=== PATIENT | female | born 1945 | race Caucasian/White ===

== ENCOUNTER 2016-02-26 07:47 | Day surgery (SDC) | payer OTHER ==
[2016-02-20 13:18] VITALS: BMI 31.0
--- NOTE | 2016-02-20 13:57 | PAT Medication Instructions ---
Service Date Feb 20, 2016. Current Home Medication List Acetaminophen (Tylenol), 325 MG PO PRN Alendronate/Cholecalciferol (Fosamax+D 70MG/2800 Iu), 1 TABLET PO WK Atorvastatin (Lipitor), 10 MG PO Q2D Cholecalciferol (Vitamin D3), 1 CAP PO QPM Glipizide (Glipizide Er), 1 TAB PO QAM Lactulose (Encephalopathy) (Lactulose), 30 ML PO QAM Lisinopril (Zestril), 10 MG PO QAM Magnesium Oxide (Mag-Ox), 400 MG PO HS Metformin Hcl (Glucophage), 500 MG PO NOON/PM Metoprolol Succ (Toprol Xl) (Toprol-Xl), 25 MG PO QPM Omeprazole (Prilosec), 20 MG PO QAM Quetiapine Fumarate (Seroquel), 100 MG PO HS Thiamine Mononitrate (Vitamin B1), 100 MG PO NOON/PM [Folic ], 800 MCG PO QAM Medication Instructions For Your Scheduled Surgery - Continue as usual: Thiamine Mononitrate (Vitamin B1), 100 MG PO NOON/PM Alendronate/Cholecalciferol (Fosamax+D 70MG/2800 Iu), 1 TABLET PO WK - Hold the following medications 48 hours prior to surgery: Metformin Hcl (Glucophage), 500 MG PO NOON/PM - Hold the following medications the morning of surgery: [Folic ], 800 MCG PO QAM Lisinopril (Zestril), 10 MG PO QAM Glipizide (Glipizide Er), 1 TAB PO QAM Atorvastatin (Lipitor), 10 MG PO Q2D - Take the following medications the morning of surgery with a sip of water: Omeprazole (Prilosec), 20 MG PO QAM Lactulose (Encephalopathy) (Lactulose), 30 ML PO QAM Acetaminophen (Tylenol), 325 MG PO PRN (if needed) - Take the following medications as scheduled the night before surgery: Thiamine Mononitrate (Vitamin B1), 100 MG PO NOON/PM Quetiapine Fumarate (Seroquel), 100 MG PO HS Metoprolol Succ (Toprol Xl) (Toprol-Xl), 25 MG PO QPM Magnesium Oxide (Mag-Ox), 400 MG PO HS Acetaminophen (Tylenol), 325 MG PO PRN (if needed) Cholecalciferol (Vitamin D3), 1 CAP PO QPM If you have any questions please call us at [phone] (Maru Arroyo PA-C) or [phone] or [phone]
[2016-02-20 15:10] LABS: BUN/CREATININE RATIO 12.7 (10-20); CALCIUM 9.4 mg/dl (8.5-10.1); POTASSIUM 4.2 mmol/L (3.5-5.1)
[2016-02-20 15:13] LABS: BASO % 0.4 %; BASO ABS # 0.01 K/uL (0-0.2); COMPLETE YES; EOS % 1.3 %; HEMATOCRIT 33.4 % (37-47); LYMPH % 31.3 %; MEAN CELL VOLUME 89.1 fL (80-100); MEAN CORPUSCULAR HEMOGLOBIN 29.3 pg (25-34); MEAN CORPUSCULAR HGB CONC 32.9 g/dl (32-36); MEAN PLATELET VOLUME 11.4 fL (7.4-10.4); MONO % 7.6 %; NEUT % 59.4 %; PLATELET COUNT 73 K/uL (130-400); PLT ESTIMATE DECREASED; RED BLOOD COUNT 3.75 M/uL (4.2-5.4); SCHISTOCYTES 1+; WHITE BLOOD COUNT 2.24 K/uL (4.8-10.8)
[~2016-02-26] VITALS: Ht 152.4 cm; Wt 73.4 kg
[~2016-02-26 07:47] MED LIST: ACET-1311 PO; ATOR10TA82 PO; CEFAZOLIN 2000 MG/60 ML D5W IV SCH; CHOL2000 PO; FOLIC PO; FSMD/70 PO; GLC/500 PO; GLIP-199 PO; LACT10SO30 PO; LACTATED RINGER'S 1000ML 1,000 ML IV SCH; LISI-461 PO; MAGN400T6 PO; METO25TA3 PO; PRLSR20 PO; QUET1TAB34 PO; THIA1TAB11 PO
[2016-02-26 09:05] LABS: HEMATOCRIT 32.8 % (37-47); MEAN CELL VOLUME 88.6 fL (80-100); MEAN CORPUSCULAR HEMOGLOBIN 29.2 pg (25-34); WHITE BLOOD COUNT 1.93 K/uL (4.8-10.8)
[2016-02-26 09:07] LABS: MEAN CORPUSCULAR HGB CONC 32.9 g/dl (32-36); MEAN PLATELET VOLUME 11.2 fL (7.4-10.4); PLATELET COUNT 68 K/uL (130-400)
[2016-02-26 09:08] VITALS: BP 181/78; PULSE 88; TEMP 36.7; O2SAT 98; Ht 152.4 cm; Wt 73.4 kg
[2016-02-26] MEDS ORDERED: LIDOCAINE HCL 2% 2 ML VIAL (20MG/ML) ONE (10:00)
[2016-02-26] MEDS ORDERED: ONDANSETRON INJ 2 MG/ML 2 ML VIAL ONE (10:00)
[2016-02-26] MEDS ORDERED: DEXAMETHASONE SOD INJ 4 MG/ML VIAL ONE (10:00)
[2016-02-26] MEDS ORDERED: MIDAZOLAM HCL 1 MG/ML 2ML VIAL ONE (10:00)
[2016-02-26] MEDS ORDERED: PROPOFOL IV EMULSION 10 MG/ML 20 ML VIAL IV ONE (10:00)
[2016-02-26] MEDS ORDERED: FENTANYL CITRATE INJ 50 MCG/1 ML 2 ML VIAL ONE (10:00)
[2016-02-26] MEDS ORDERED: KETAMINE HCL INJ 50 MG/ML 10 ML VIAL ONE (10:08)
--- NOTE | 2016-02-26 10:12 | DIAGNOSTIC IMAGING REPORT ---
RIGHT BREAST LYMPHOSCINTIGRAPHY INJECTION CLINICAL HISTORY: BREAST CA COMPARISON STUDY: Mammography dated 01/22/2016 FINDINGS: A timeout was performed. 5 Periareolar intradermal injections were performed utilizing a total dose of 0.49 mCi of technetium 99m Lymphoseek. No imaging was performed. The patient was sent to the operating room for intraoperative localization IMPRESSION: Right breast lymphoscintigraphy injection was performed Electronically signed by: Jasen Buenrostro M.D. 02/26/2016 10:10 AM
--- NOTE | 2016-02-26 11:26 | History & Physical Bridge Note ---
H&P Re-Evaluation Bridge Note: I have examined the patient, reviewed the History & Physical and in the interval since the performance of the History & Physical I have noted the following changes of clinical significance: No changes noted
[2016-02-26] MEDS ORDERED: ATROPINE SULFATE 0.1 MG/ML 5ML SYR IV PRN (12:15)
[2016-02-26] MEDS ORDERED: ONDANSETRON INJ 2 MG/ML 2 ML VIAL IV PRN (12:15)
[2016-02-26] MEDS ORDERED: FENTANYL CITRATE INJ 50 MCG/1 ML 2 ML VIAL IV PRN (12:15)
[2016-02-26] MEDS ORDERED: EpHEDrine SULFATE INJ 50 MG/ML AMP IV PRN (12:15)
[2016-02-26] MEDS ORDERED: ISOSULFAN BLUE 10 MG/ML VIAL 5 ML INJ ONE (13:05)
[2016-02-26] MEDS ORDERED: BUPIVACAINE 0.5 % 5 MG/1 ML MPF 30ML VIAL INJ ONE (13:05)
[2016-02-26] MEDS ORDERED: BACITRACIN 500 UNIT TOP ONE (13:06)
[2016-02-26] MEDS ORDERED: SODIUM CHLORIDE 0.9% 1000ML 1,000 ML IV SCH (13:10)
[2016-02-26] MEDS ORDERED: OXYC-57 PO (13:14)
[2016-02-26] MEDS ORDERED: MoRPHine SULFATE 2 MG/ML CARP IV PRN (13:15)
[2016-02-26] MEDS ORDERED: OXYCODONE/ACETAMINOPHEN 5-325 TAB PO PRN (13:15)
--- NOTE | 2016-02-26 13:20 | Discharge Instructions ---
Discharge Instructions Visit Reason for Visit: Right Breast Cancer Discharge Goals Goal(s): Decrease discomfort, Improve function Activity Recommendations Activity Limitations: per Instructions/Follow-up section Lifting Limitations: gradually increase as tolerated Exercise/Sports Limitations: gradually increase as tolerated May Resume Sexual Activity: when tolerated Shower/Bathe: may shower/bathe in 3 days Driving or Machine Use: resume 3 days after discharge Anesthesia . Post Anesthesia Instructions: If you have had General Anesthesia or IV Sedation: * Do not drive today. * Resume driving when surgeon permits. * Do not make important decisions or sign legal documents today. * Call surgeon for: 1. Temperature elevations greater than 101 degrees F. 2. Uncontrollable pain. 3. Excessive bleeding. 4. Persistent nausea and vomiting. 5. Medication intolerance (nausea, vomiting or rash). * For nausea and vomiting use only clear liquids such as: tea, soda, bouillon until nausea subsides, then gradually increase diet as tolerated. * If you have any concerns or questions, call your surgeon's office. If physician is unavailable and it is an emergency, call 911 or go to the nearest emergency room. . Procedures Procedures Performed: Right Breast Lumpectomy, [place] Lymph Node Biopsy Pending Studies Studies pending at discharge: no Medical Emergencies . Who to Call and When: Medical Emergencies: If at any time you feel your situation is an emergency, please call 911 immediately. . Non-Emergent Contact Call Non-Emergent contact if: you have a fever, temperature is above 100.5, your pain is not controlled, your pain is worsening, wound has increased drainage, wound has increased redness call [phone], Dr. Carrington, F/U 1 week. . . "Provider Documentation" section prepared by Cara Carrington.
--- NOTE | 2016-02-26 13:23 | [facility] Post Operative Brief Note ---
Immediate Operative Summary Operative Date Feb 26, 2016. Pre-Operative Diagnosis Right breast Cancer Post-Operative Diagnosis Right Breast Cancer Procedure(s) Performed Right Breast Lumpectomy, [place] Lymph Node Biopsy Surgeon Dr. Cara Carrington Deputy Brand Inspector Surgeon(s) None Estimated Blood Loss 10ml Findings right breast lump, sentinel lymph node biopsy, reading 45, baseline 150 Specimens A. Right Breast Lumpectomy B. Right [place] Node Drains none Complication(s) None Disposition Recovery Room / PACU
--- NOTE | 2016-02-26 13:33 | Anesthesiology Progress Note ---
Anesthesia Post Op Note Date & Time Feb 26, 2016 at 13:32 Vital Signs Pain Intensity: 0 Vital Signs Past 12 Hours Date Time Temp Pulse Resp B/P Pulse Ox O2 Delivery O2 Flow Rate FiO2 02/26/16 13:25 36.8 64 16 125/64 95 Room Air 02/26/16 13:15 67 16 136/61 96 Room Air 02/26/16 13:06 37.6 76 14 150/65 96 Room Air 02/26/16 09:08 36.7 88 18 181/78 98 Room Air Notes Mental Status: alert / awake / arousable, participated in evaluation Pt Amnestic to Procedure: No Nausea / Vomiting: adequately controlled Pain: adequately controlled Airway Patency, RR, SpO2: stable & adequate BP & HR: stable & adequate Hydration State: stable & adequate Anesthetic Complications: no major complications apparent Non distressing intraoperative recall as discussed preop.
[2016-02-26 13:35] VITALS: BP 126/76; PULSE 67; TEMP 37.1; O2SAT 95
[2016-02-26 14:04] VITALS: BP 136/74; PULSE 72; TEMP 37.1; O2SAT 97
--- NOTE | 2016-02-26 14:31 | OPERATIVE REPORT ---
DATE OF OPERATION: 02/26/2016 PREOPERATIVE DIAGNOSIS: Right breast cancer. POSTOPERATIVE DIAGNOSIS: Same. PROCEDURE: Right breast lumpectomy with sentinel lymph node biopsy. SURGEON: Cara Carrington M.D. ANESTHESIA: Local plus sedation. ESTIMATED BLOOD LOSS: About 10 mL. IV FLUIDS: 1400 mL. URINE OUTPUT: NA. FINDINGS: Right breast lump and lymph node read is 45 on reading, baseline is 150. COMPLICATIONS: None. INDICATIONS FOR THE PROCEDURE: This is 70-year-old female who presented with abnormal mammogram and ultrasound of the right breast. The patient had needle biopsy on the right breast and showed invasive carcinoma on the right breast. The patient required to do right breast lumpectomy, sentinel lymph node biopsy. I did talk to the patient about the benefit and risk, alternate procedure. I indicated the risks may include but not limited such as bleeding, infection, missing small lesion, may need repeat procedure. If margin positive may need mastectomy. If lymph node positive may need radical lymph node dissection. myocardial infarction, DVT, stroke and even , tumor metastatic. The patient and the patient's daughter understand. They are agreed to proceed with the procedure. I answered all questions. DETAILS OF PROCEDURE: Before patient come to the OR the patient had TC-99 injection at nuclear department about 2 hours ago and after injection the patient came to the OR and we brought the patient to the OR, put the patient on the supine position and also I used ultrasound to locate the right breast mass around the 2-3 o'clock about 3 cm from the nipple. Also used ultrasound to locate small metal chips which placed by the radiologist when they did biopsy, then I put a marker on the breast in the lump area. I injected isosulfan blue 1% about 1 mL around the right sided breast lump subcutaneous injection. After injection and massage right breast about 10 minutes, then the patient received conscious sedation and right side chest wall and right side axilla was prepped and draped in routine sterile fashion. After time out, I injection the local anesthesia by using 1% lidocaine mixed with 0.5% Marcaine around the right side breast lump around 2 to 3 o'clock 3 cm from nipple which area is the biopsy area. Then I made a fish-mouth incision and removed the whole lump without difficult. No active bleeding deep to the fascial layer. Hemostasis was obtained using 2-0 Vicryl to close subcutaneous layer interrupted and closed skin by using 4-0 Vicryl. Now we moved onto the right axillary, to read axillary lymph node about 45 reading, baseline is 150 in the injection area near the nipple. Once we located the axillary lymph node then I injected local on the axillary and I made a small incision and then used probe and found the lymph node. There was slight blue on the lymph node. The lymph node reading is 45 so dissection of the lymph node, hemostasis obtained. After we removed lymph node from the axilla we reading again showing 45 reaching. Again baseline is 150, so this sentinel lymph node we sent for frozen section to pathology and hemostasis obtained. Using 2-0 Vicryl, closed subcutaneous layer interrupted and closed skin by using 4-0 Vicryl and then we put the dressing on. The patient tolerated the procedure well. All the instrument, needle and sponge count correct x2 at the end of case. The patient transferred to recovery room in stable condition. After the procedure, I did talk to the patient and patient's family member about the OR finding and procedure we did, they understand. I will follow up the patient in 1 week. I attest to the content of the Intraoperative Record and any orders documented therein. Any exceptions are noted below. ANTHONY
[2016-02-27] MEDS ORDERED: CEFAZOLIN SOD 1000MG/55 ML D5W IV ONE (06:00)
[2016-03-26] MEDS ORDERED: FOLI800T PO (09:01)
[2016-06-17] MEDS ORDERED: ANAS1TAB6 PO (14:36)
== END 2016-02-26 14:32 | disposition home or self-care (01) ==
LOC: C.ACU 07:47
PROVIDERS: ATTEND Surgery
DX: C50.911 Malignant neoplasm of unspecified site of right female breast (principal); D50.9 Iron deficiency anemia, unspecified; K70.30 Alcoholic cirrhosis of liver without ascites; I67.2 Cerebral atherosclerosis; I69.359 Hemiplegia and hemiparesis following cerebral infarction affecting unspecified side; E78.5 Hyperlipidemia, unspecified; M15.8 Other polyosteoarthritis; M81.8 Other osteoporosis without current pathological fracture; M51.37 Other intervertebral disc degeneration, lumbosacral region; L40.8 Other psoriasis; E11.49 Type 2 diabetes mellitus with other diabetic neurological complication; K74.60 Unspecified cirrhosis of liver; N18.3 Chronic kidney disease, stage 3 (moderate); E11.9 Type 2 diabetes mellitus without complications; G47.62 Sleep related leg cramps; M21.41 Flat foot [pes planus] (acquired), right foot; G62.9 Polyneuropathy, unspecified; M75.80 Other shoulder lesions, unspecified shoulder

== ENCOUNTER → 2016-06-17 | Outpatient (CLI) | payer OTHER ==
[~2016-06-17] MED LIST changes: +ANAS1TAB6 PO; -CEFAZOLIN 2000 MG/60 ML D5W IV SCH; +FOLI800T PO; -FOLIC PO; -LACTATED RINGER'S 1000ML 1,000 ML IV SCH
[2016-06-17 14:12] VITALS: BP 143/78; PULSE 86; TEMP 37; O2SAT 98
--- NOTE | 2016-06-17 16:54 | Radiation Oncology Follow-Up ---
Radiation Oncology Follow-Up Date of Visit Jun 17, 2016. Reason For Visit One-month follow-up and cancer survivorship care plan Radiation Completion Date 05/18/16 Diagnosis (1) Breast cancer Status: Acute Onset Date: 01/22/2016 Histology Subtype: ductal Stage: l (A) Permanent Comment: Abnormal right breast mammogram Status post core needle biopsy revealing invasive carcinoma 01/22/2016 Estrogen receptor positive, progesterone receptor negative, HER-2/annalisa negative Status post lumpectomy and sentinel lymph node biopsy 02/26/2016 Stage pT1c pN0M0 G3 Status post completion of radiation therapy 05/18/2016 received 5130 cGy utilizing hypo-fractionation. Last Edited By: Roya Michael on May 25, 2016 16:32 History of Present Illness Ms. Manjarrez is a 70-year-old female without a family history of breast cancer. She has been followed with screening mammograms. On 12/18/2015 patient underwent bilateral screening mammogram. In the right breast 2 masses were noted in the middle depth with new calcifications in segmental distributions. These were not present on the prior mammogram from 12/15/2013. Additional projections, ultrasound and spot magnification views were recommended. On 12/30 patient underwent these additional procedures. This showed innumerable amorphous, fine, linear and punctate calcifications distributed segmentally that were present in the upper inner quadrant. An ultrasound demonstrated a solid mass measuring 0.4 x 0.3 x 0.3 cm in the upper inner quadrant most likely a lymph node. These findings were suspicious and a stereotactic core needle biopsy was recommended for a category 4 C finding. On 01/22/2016 the patient underwent core biopsy of the right breast 3:00 middle depth with calcifications and without calcifications. The biopsy with calcifications confirmed an invasive carcinoma ofa type, grade 2. 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 The biopsy without calcifications also identified an invasive carcinoma, no special type, grade 2. A small focus of ductal carcinoma in situ , grade 3 with necrosis and small calcifications was appreciated. Estrogen receptors were strongly positive. Progesterone receptors were negative. HER-2 oncoproteins expression was negative. Accession #: [id number]. Patient was seen in referral by Dr. Carrington from Gen. surgery. He discussed treatment options with the patient. She opted to proceed with the breast conserving technique. His breast exam did identify a small lump on the right breast at the 12 o'clock position measuring 1.0 x 2.0 cm. On 02/27/2016 Dr. Carrington proceeded with a right breast lumpectomy and sentinel node biopsy. A single sentinel node was identified and was negative. The lumpectomy specimen confirmed residual invasive mammary carcinoma no special type. Histologic grade was 3. 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 The invasive component measured 1.5 cm and the noninvasive DCIS covered at least 2.4 cm. There was nuclear grade 3 with necrosis present. The margins of the invasive carcinoma were uninvolved. However the distance from the closest margin was 1 mm as represented by the peripheral margin. The DCIS margins were also uninvolved. The distance from closest margin however was less than 1 mm as represented by the peripheral and deep margins. There was no lymphovascular invasion seen. Final stage was therefore a pT1c pN0(sn-), ER positive, [place] positive and HER-2/annalisa negative. Case: [id number]. Patient was subsequently seen by Dr. Ministerio Clark for evaluation of adjuvant systemic therapy on 03/20/2016. She discussed the option of Oncotype DX assay to aid in decision regarding the potential option of chemotherapy. The patient stated that she would not agree to receiving any chemotherapy and therefore she declined the Oncotype DX assay. She then discussed the benefit of adjuvant endocrine therapy given the ER positivity of her breast cancer. The patient agreed to anti-estrogen therapy. She also discussed the use of adjuvant radiation. Dr. Clark was therefore kind enough to arrange for us to see this patient in referral to discuss with her the radiation treatment options. On 03/23/2016 the patient underwent a limited ultrasound of the abdomen due to a history of thrombocytopenia to evaluate for splenomegaly. The spleen was enlarged measuring 17.5 cm with multiple vessels noted in the region of the splenic hilum and possible varices. The visualized left kidney measured 8.9 cm. At the mid pole level there was an oblong isoechoic contour bulge which was nonspecific. This measured 2.0 x 1.4 x 2.3 cm and could represent a dromedary hump versus a solid left renal mass. No previous images were available for comparison area and enhanced CT scan of the abdomen was performed recently with the results were negative for metastatic disease. She did have osteoporosis with compression deformities and spinal stenosis. She had a CT simulation was found to be a candidate for hypo-fractionation. Radiation was completed 05/18/2016. She received 5130 cGy. Interim History She's been doing well over this past month. She did develop an area of redness and dry skin. This has steadily improved. She denies any pain or tenderness. She has noted no masses or change of the axilla. She has had no swelling of her arm. She is seeing Dr. Clark in follow-up and has been placed on anastrozole. She denies any side effects to the medication. Allergies Coded Allergies: Sulfa Antibiotics (Verified Allergy, Unknown, RASH, 02/26/16) Home Medications Scheduled Acetaminophen (Tylenol), 325 MG PO PRN Alendronate/Cholecalciferol (Fosamax+D 70MG/2800 Iu), 1 TABLET PO WK Anastrozole (Anastrozole), 1 TAB PO DAILY Atorvastatin (Lipitor), 10 MG PO Q2D Cholecalciferol (Vitamin D3), 1 CAP PO QPM Folic Acid (Folic Acid), 1 TAB PO DAILY Glipizide (Glipizide Er), 1 TAB PO QAM Lactulose (Encephalopathy) (Lactulose), 30 ML PO QAM Lisinopril (Zestril), 10 MG PO QAM Magnesium Oxide (Mag-Ox), 400 MG PO HS Metformin Hcl (Glucophage), 500 MG PO NOON/PM Metoprolol Succ (Toprol Xl) (Toprol-Xl), 25 MG PO QPM Omeprazole (Prilosec), 20 MG PO QAM Quetiapine Fumarate (Seroquel), 100 MG PO HS Thiamine Mononitrate (Vitamin B1), 100 MG PO NOON/PM Review of Systems Gastrointestinal: Symptoms: WNL Oral: Symptoms: No Problems Respiratory: Symptoms: WNL Urinary: Symptoms: WNL Skin: Symptoms: No Problems Other Skin Symptoms: Discolored per patient report Breast: Right Upper Arm Measurement: 31.5 Right Mid Arm Measurement: 24.2 Right Wrist Measurement: 16.2 Left Upper Arm Measurement: 30.5 Left Mid Arm Measurement: 24.5 Left Wrist Measurement: 16.4 Arm Dominence: Right Physical Exam Vital Signs Date Time Temp Pulse Resp B/P Pulse Ox O2 Delivery O2 Flow Rate FiO2 06/17/16 14:12 37.0 86 14 143/78 98 Fatigue: None General Appearance: no apparent distress Eyes: normal inspection, PERRL ENT: normal ENT inspection, hearing grossly normal Neck: no adenopathy, thyroid normal Respiratory/Chest: lungs clear, no respiratory distress, no accessory muscle use Breast: Breast examination reveals well-healed incisions of the right breast area there are no masses or tenderness no axillary adenopathy. There is resolving hyperpigmentation and dry desquamation. Using the [place] score cosmesis she has a fair outcome to the resolving hyperpigmentation. The left breast showed no masses or tenderness and no axillary adenopathy. Cardiovascular: regular rate, rhythm, no gallop, no murmur Abdomen: non tender Extremities: no pedal edema Neurologic/Psychiatric: no motor/sensory deficits, alert, normal mood/affect Skin: warm/dry Lymphatic: no adenopathy Assessment & Plan Plan: Continue regular follow-up with her primary care physician, Dr. Clark, and her breast surgeon. She continues on the Arimidex. Mammography was scheduled. She'll have digital diagnostic mammograms in [place]. The right breast will be imaged in 2 months and bilateral mammography in 8 months. Today we completed a cancer survivorship care plan. A copy of the document was given to the patient. We asked her to return to our office in 6 months. She may call if she has any questions or concerns in the interim. Total Time In Follow-Up I spent 20 minutes speaking to the patient and performing examination. I spent 20 minutes reviewing information, completing the survivorship document, and completing this note. Copy To Ministerio Clark MD; Yessi Vitale M.D.; Cara Carrington MD Problem Qualifiers (1) Breast cancer: Breast location: central portion of breast Patient sex: female Laterality: right Qualified Codes: C50.111 - Malignant neoplasm of central portion of right female breast
== END | disposition home or self-care (01) ==
LOC: C.ONC 13:59
PROVIDERS: ATTEND Physician Assistant Medical
DX: Z08 Encounter for follow-up examination after completed treatment for malignant neoplasm (principal); Z92.3 Personal history of irradiation; Z85.3 Personal history of malignant neoplasm of breast

== ENCOUNTER → 2016-12-17 | Outpatient (CLI) | payer OTHER ==
[2016-12-17 13:45] VITALS: BP 135/80; PULSE 80; TEMP 37.1; O2SAT 98
--- NOTE | 2016-12-17 16:44 | Radiation Oncology Follow-Up ---
Radiation Oncology Follow-Up Date of Visit Dec 17, 2016. Reason For Visit 6 month follow-up Radiation Completion Date Hypofractionation 05/18/16 Diagnosis (1) Breast cancer Status: Resolved Onset Date: 01/22/2016 Histology Subtype: ductal Stage: l (A) Permanent Comment: Abnormal right breast mammogram Status post core needle biopsy revealing invasive carcinoma 01/22/2016 Estrogen receptor positive, progesterone receptor negative, HER-2/annalisa negative Status post lumpectomy and sentinel lymph node biopsy 02/26/2016 Stage pT1c pN0M0 G3 Status post completion of radiation therapy 05/18/2016 received 5130 cGy utilizing hypo-fractionation. Last Edited By: Roya Michael on May 25, 2016 16:32 History of Present Illness Ms. Manjarrez is without a family history of breast cancer. She has been followed with screening mammograms. On 12/18/2015 patient underwent bilateral screening mammogram. In the right breast 2 masses were noted in the middle depth with new calcifications in segmental distributions. These were not present on the prior mammogram from 12/15/2013. Additional projections, ultrasound and spot magnification views were recommended. On 12/31/2015 patient underwent these additional procedures. This showed innumerable amorphous, fine, linear and punctate calcifications distributed segmentally that were present in the upper inner quadrant. An ultrasound demonstrated a solid mass measuring 0.4 x 0.3 x 0.3 cm in the upper inner quadrant most likely a lymph node. These findings were suspicious and a stereotactic core needle biopsy was recommended for a category 4 C finding. On 01/22/2016 the patient underwent core biopsy of the right breast 3:00 middle depth with calcifications and without calcifications. The biopsy with calcifications confirmed an invasive carcinoma ofa type, grade 2. 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 The biopsy without calcifications also identified an invasive carcinoma, no special type, grade 2. A small focus of ductal carcinoma in situ , grade 3 with necrosis and small calcifications was appreciated. Estrogen receptors were strongly positive. Progesterone receptors were negative. HER-2 oncoproteins expression was negative. Accession #: [id number]. Patient was seen in referral by Dr. Carrington from [facility] surgery. He discussed treatment options with the patient. She opted to proceed with the breast conserving technique. His breast exam did identify a small lump on the right breast at the 12 o'clock position measuring 1.0 x 2.0 cm. On 02/27/2016 Dr. Carrington proceeded with a right breast lumpectomy and sentinel node biopsy. A single sentinel node was identified and was negative. The lumpectomy specimen confirmed residual invasive mammary carcinoma no special type. Histologic grade was 3. 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 The invasive component measured 1.5 cm and the noninvasive DCIS covered at least 2.4 cm. There was nuclear grade 3 with necrosis present. The margins of the invasive carcinoma were uninvolved. However the distance from the closest margin was 1 mm as represented by the peripheral margin. The DCIS margins were also uninvolved. The distance from closest margin however was less than 1 mm as represented by the peripheral and deep margins. There was no lymphovascular invasion seen. Final stage was therefore a pT1c pN0(sn-), ER positive, KS positive and HER-2/annalsia negative. Case: [id number]. Patient was subsequently seen by Dr. Ministerio Clark for evaluation of adjuvant systemic therapy on 03/20/2016. She discussed the option of Oncotype DX assay to aid in decision regarding the potential option of chemotherapy. The patient stated that she would not agree to receiving any chemotherapy and therefore she declined the Oncotype DX assay. She then discussed the benefit of adjuvant endocrine therapy given the ER positivity of her breast cancer. The patient agreed to anti-estrogen therapy. She also discussed the use of adjuvant radiation. Dr. Clark was therefore kind enough to arrange for us to see this patient in referral to discuss with her the radiation treatment options. On 03/23/2016 the patient underwent a limited ultrasound of the abdomen due to a history of thrombocytopenia to evaluate for splenomegaly. The spleen was enlarged measuring 17.5 cm with multiple vessels noted in the region of the splenic hilum and possible varices. The visualized left kidney measured 8.9 cm. At the mid pole level there was an oblong isoechoic contour bulge which was nonspecific. This measured 2.0 x 1.4 x 2.3 cm and could represent a dromedary hump versus a solid left renal mass. No previous images were available for comparison area and enhanced CT scan of the abdomen was performed recently with the results were negative for metastatic disease. She did have osteoporosis with compression deformities and spinal stenosis. She had a CT simulation was found to be a candidate for hypo-fractionation. Radiation was completed 05/18/2016. She received 5130 cGy. Interim History She's been doing well over the past 6 months. She denies any changes to her breast. She does have some mild tenderness on the lateral aspect of the right breast. She is noted no masses and no change of the axilla. She has had no swelling of her arm. She is up-to-date on mammography. She had a mammogram . Us was of the right breast. There was no evidence of malignancy. Interval follow-up was recommended in 6 months. This was given a BI-RADS Category 1. She did state that she is scheduled for her next mammogram on 02/04. Allergies Coded Allergies: Sulfa Antibiotics (Verified Allergy, Unknown, RASH, 02/26/16) Home Medications Scheduled Acetaminophen (Tylenol), 325 MG PO PRN Alendronate/Cholecalciferol (Fosamax+D 70MG/2800 Iu), 1 TABLET PO WK Anastrozole (Anastrozole), 1 TAB PO DAILY Atorvastatin (Lipitor), 10 MG PO Q2D Cholecalciferol (Vitamin D3), 1 CAP PO QPM Folic Acid (Folic Acid), 1 TAB PO DAILY Glipizide (Glipizide Er), 1 TAB PO QAM Lactulose (Encephalopathy) (Lactulose), 30 ML PO QAM Lisinopril (Zestril), 10 MG PO QAM Magnesium Oxide (Mag-Ox), 400 MG PO HS Metformin Hcl (Glucophage), 500 MG PO NOON/PM Metoprolol Succ (Toprol Xl) (Toprol-Xl), 25 MG PO QPM Omeprazole (Prilosec), 20 MG PO QAM Quetiapine Fumarate (Seroquel), 100 MG PO HS Thiamine Mononitrate (Vitamin B1), 100 MG PO NOON/PM Review of Systems Gastrointestinal: Symptoms: WNL Oral: Symptoms: No Problems Respiratory: Symptoms: WNL Urinary: Symptoms: WNL Skin: Symptoms: No Problems Other Skin Symptoms: Discolored per patient report Breast: Right Upper Arm Measurement: 33.0 Right Mid Arm Measurement: 24.0 Right Wrist Measurement: 16.0 Left Upper Arm Measurement: 32.0 Left Mid Arm Measurement: 24.0 Left Wrist Measurement: 16.0 Arm Dominence: Right Physical Exam Vital Signs Date Time Temp Pulse Resp B/P (MAP) Pulse Ox O2 Delivery O2 Flow Rate FiO2 12/17/16 13:45 37.1 80 16 135/80 98 Fatigue: None General Appearance: no apparent distress Eyes: normal inspection, EOMI ENT: normal ENT inspection, hearing grossly normal Neck: no adenopathy, thyroid normal Respiratory/Chest: lungs clear, no respiratory distress, no accessory muscle use Breast: Breast examination reveals well-healed incisions of the right breast. There is mild hyperpigmentation around the incision area. Along the incision there is mild telangiectasia. There is mild deficit in the area of the incision. There are no masses. She has mild tenderness in the lateral aspect of the breast in the mid axillary line. Using the Humphrey score cosmesis she has a good outcome. The left breast showed no masses or tenderness and no axillary adenopathy. Cardiovascular: regular rate, rhythm, no gallop, no murmur Extremities: no pedal edema Neurologic/Psychiatric: no motor/sensory deficits, alert, normal mood/affect Skin: warm/dry Additional Studies She had a mammogram 08/20/2016. This showed no evidence of malignancy. Normal interval follow-up is recommended in 6 months. This will be bilateral yearly mammogram. I redness category 1. Assessment & Plan Plan: She'll have her next mammogram on 02/04/2017. Continue regular follow-up with her primary care provider, her breast surgeon, and medical oncologist. She continues on anastrozole. We asked her to return to our office in 1 year. She may call if she has any questions or concerns in the interim. We discussed the tenderness of the lateral breast. This is likely residual inflammation or costochondritis posttreatment. This should steadily improve over time. As instructed to use Aquaphor for the area of resolving hyperpigmentation. Total Time In Follow-Up I spent 20 minutes speaking to the patient and performing examination. I spent 15 minutes reviewing information in completing this note. Copy To Ministerio Clark MD; Lucy Bonilla D.O.; Cara Carrington MD Problem Qualifiers (1) Breast cancer: Breast location: central portion of breast Estrogen receptor status: positive Patient sex: female Laterality: right Qualified Codes: C50.111 - Malignant neoplasm of central portion of right female breast; Z17.0 - Estrogen receptor positive status [ER+]
== END | disposition home or self-care (01) ==
LOC: C.ONC 13:34
PROVIDERS: ATTEND Physician Assistant Medical
DX: Z08 Encounter for follow-up examination after completed treatment for malignant neoplasm (principal); Z92.3 Personal history of irradiation; Z85.3 Personal history of malignant neoplasm of breast

== ENCOUNTER 2020-02-02 17:46 | Inpatient (IN) ==
[2020-02-02] MEDS ORDERED: ACETAMINOPHEN 500 MG TAB PO STA (17:54)
--- NOTE | 2020-02-02 18:03 | Emergency Department Note ---
History of Present Illness General Chief complaint: Fall Source: patient, EMS, RN notes reviewed and old records reviewed Mode of arrival: EMS Limitations: no limitations History of Present Illness Provider complaint: Fall, left hip pain Onset (ago): hour(s) less than 1 Location: lower extremity and left Radiation: extremity Severity: moderate Pain Consistency: + constant Current Pain Intensity: 4 Quality: + dull Relieved By: + immobilization Exacerbated By: + movement Associated symptoms: no confusion, no chest pain, no fever/chills, no headaches, no nausea/vomiting, no shortness of breath and no weakness Treatments prior to arrival: none This is 74-year-old female who is a patient at [facility] who reports to the emergency department after a fall. The patient reports she fell and landed on her left hip. She reports she has not been able to get up since the fall. The patient reports movement makes the hip pain worse however immobilization makes it better. She describes the pain as a dull ache with radiation down her extremity. The patient reports she has never broken a bone before. She denies hitting her head. She has not taken anything for the pain prior to arrival. Patient thought she heard her doorbell ring and stood up. Her leg was asleep and she fell over on the leg. Home Medications Medication Instructions Recorded Confirmed Type acetaminophen [Tylenol] 650 mg PO QID PRN 02/02/20 02/02/20 History alendronate [Fosamax] 70 mg PO WK 02/02/20 02/02/20 History atorvastatin [Lipitor] 10 mg PO DAILY 02/02/20 02/02/20 History glipizide [Glucotrol XL] 10 mg PO UD 02/02/20 02/02/20 History lactulose [Enulose] 30 ml PO DAILY PRN 02/02/20 02/02/20 History lisinopril 10 mg PO DAILY 02/02/20 02/02/20 History magnesium oxide 400 mg PO DAILY 02/02/20 02/02/20 History metoprolol succinate [Toprol XL] 25 mg PO DAILY 02/02/20 02/02/20 History omeprazole 20 mg PO DAILY 02/02/20 02/02/20 History quetiapine [Seroquel] 25 mg PO HS 02/02/20 02/02/20 History tamoxifen 20 mg PO DAILY 02/02/20 02/02/20 History Allergies Allergy/AdvReac Type Severity Reaction Status Date / Time Sulfa (Sulfonamide Allergy Unknown RASH Verified 02/02/20 20:40 Antibiotics) Past Med/Surg History Medical History Breast cancer Cirrhosis CKD (chronic kidney disease) CVA (cerebral vascular accident) Diabetes mellitus Esophageal 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 HTN (hypertension) PAD (peripheral artery disease) Pancytopenia Peripheral neuropathy Surgical History History of esophagogastroduodenoscopy (EGD) History of partial mastectomy of right breast Hx of cholecystectomy Social History Smoking Status: Never smoker Hx Alcohol Use: No Hx Substance Use: No Preferred Language: Nauruan Communication Ability: Effective Director Of Strategic Partnerships Required: No Beliefs That Will Affect Care: None Current Living Situation: Alone Other Information That Helps Us Care for You: No Feels Safe at Home: Yes Safety Concerns: Feels Safe At This Time Assistive Devices: Denture - Upper, Glasses and Hearing Aid - Bilateral Review of Systems A total of 10 systems reviewed and were otherwise negative Physical Exam VITAL SIGNS - Vital signs and nursing notes were reviewed. GENERAL - 74-year-old female appearing stated age who is in no acute distress. Communicates well with provider and answers questions appropriately. SKIN - Without rashes. HEAD - NC/AT. EYES - PERRL with EOMI bilaterally. Sclera anicteric. Palpebral conjunctiva pink and moist with no injection noted. EARS - No deformities of external structures noted on gross examination bilaterally. No pain elicited with palpation of the tragus bilaterally. External auditory canals without discharge or otorrhea. Tympanic membranes pearly cornell without retraction or bulging. No fluid or purulent material visualized behind the TM. Handle of malleus, umbo, cone of light, pars tensa/flaccid all easily visualized. NOSE - Midline and without cyanosis. No epistaxis or purulent drainage noted. Septum midline without deviation or septal hematoma noted. MOUTH/OROPHARYNX - Without perioral cyanosis. Buccal mucosa pink and moist and without leukoplakia. Tongue midline with equal elevation of palate bilaterally. No tonsillar hypertrophy, erythema, or exudates noted. dentition noted. NECK - Neck with FROM. Supple to palpation. lymphadenopathy noted. No nuchal rigidity. LUNGS - Chest wall symmetric without accessory muscle use, intercostals retractions, or central cyanosis. Normal vesicular breath sounds CTA B/L. No wheezes, rales, or rhonchi appreciated. CARDIAC - RRR with S1/S2. No murmur, rubs, or gallops appreciated. ABDOMEN - Abdominal contour without pulsations or visible masses. BS normoactive all four quadrants. No tenderness, palpable masses, hepatosplenome chris, or ascites noted. EXTREMITIES - left leg shortned and internally rotated, + distal pulses, ne urovascularly intact NEUROLOGIC - Cranial nerves II through XII grossly intact. Sensory intact to l ight touch throughout. Patellar reflexes +2/4. PSYCH - A&Ox3 and cooperates fully with examiner. Pt is very pleasant and interacts well with examiner. Course Administered Medications Acetaminophen (Acetaminophen 325 Mg Tab) 650 mg PO Q4H PRN PRN Reason: pain/fever Stop: 03/03/20 22:01 Last Admin: 02/03/20 01:14 Dose: 650 mg Documented by: [id number] Atorvastatin Calcium (Atorvastatin 10 Mg Tab) 10 mg PO DAILY [facility] Stop: 03/04/20 08:59 Last Admin: 02/03/20 13:19 Dose: 10 mg Documented by: [id number] Cefazolin Sodium (Ancef 2000mg) 2,000 mg in 15 mls @ 3.75 mls/min IV Q8H [facility] Stop: 02/04/20 17:59 Last Admin: 02/03/20 18:21 Dose: 3.75 mls/min Documented by: [id number] Insulin Aspart (Insulin Aspart 100 Units/Ml 3 Ml Pen) 0 units SC ACHS [facility] Stop: 03/04/20 00:00 Last Admin: 02/03/20 18:01 Dose: 5 units Documented by: [id number] Cosigned by: [id number] Admin: 02/03/20 13:28 Dose: 1 units Documented by: [id number] Cosigned by: [id number] Lisinopril (Lisinopril 10 Mg Tab) 10 mg PO DAILY [facility] Stop: 03/04/20 08:59 Last Admin: 02/03/20 13:21 Dose: 10 mg Documented by: [id number] Magnesium Oxide (Magnesium Oxide 400 Mg Tab) 400 mg PO DAILY [facility] Stop: 03/04/20 08:59 Last Admin: 02/03/20 13:20 Dose: 400 mg Documented by: [id number] Metoprolol Succinate (Metoprolol Succ 25mg Ext Rel Tab) 25 mg PO DAILY KEYSHA Stop: 03/04/20 08:59 Last Admin: 02/03/20 13:20 Dose: 25 mg Documented by: [id number] Ondansetron HCl (Ondansetron Inj 2 Mg/Ml 2 Ml Vial) 4 mg IV Q6H PRN PRN Reason: Nausea Stop: 03/03/20 22:01 Last Admin: 02/03/20 13:54 Dose: 4 mg Documented by: [id number] Pantoprazole Sodium (Pantoprazole 40 Mg Tab) 40 mg PO DAILY [facility] Stop: 03/04/20 08:59 Last Admin: 02/03/20 13:20 Dose: 40 mg Documented by: [id number] Tamoxifen Citrate (Tamoxifen Citrate 10 Mg Tablet) 20 mg PO DAILY [facility] Stop: 03/04/20 08:59 Last Admin: 02/03/20 13:21 Dose: 20 mg Documented by: [id number] Cosigned by: [id number] Discontinued Medications Acetaminophen (Acetaminophen 500 Mg Tab) 1,000 mg PO NOW STA Stop: 02/02/20 17:55 Last Admin: 02/02/20 18:42 Dose: 1,000 mg Documented by: [id number] Bupivacaine HCl (Bupivacaine 0.5 % 5 Mg/1 Ml Mpf 30ml Vial) Confirm Administered Dose 30 ml .ROUTE .STK-MED ONE Stop: 02/03/20 09:35 Last Admin: 02/03/20 10:37 Dose: 30 ml Documented by: [id number] Epinephrine HCl (Epinephrine Inj 1 Mg/Ml Amp) Confirm Administered Dose 1 mg .ROUTE .STK-MED ONE Stop: 02/03/20 09:35 Last Admin: 02/03/20 10:36 Dose: 0.15 mg Documented by: [id number] Hydromorphone HCl (Hydromorphone Inj 0.5 Mg/0.5 Ml Syr) 0.5 mg IV Q20M PRN PRN Reason: Severe Pain (Rating 7,8,9,10) Stop: 02/16/20 17:53 Last Admin: 02/02/20 19:16 Dose: 0.5 mg Documented by: [id number] Admin: 02/02/20 18:42 Dose: 0.5 mg Documented by: [id number] Hydromorphone HCl (Hydromorphone Inj 1 Mg/Ml Syringe) 0.25 mg IV Q5M PRN PRN Reason: PACU Use Only-Pain Stop: 02/03/20 17:35 Last Admin: 02/03/20 11:38 Dose: 0.25 mg Documented by: [id number] Admin: 02/03/20 11:33 Dose: 0.25 mg Documented by: [id number] Hydromorphone HCl (Hydromorphone Inj 0.5 Mg/0.5 Ml Syr) Confirm Administered Dose 0.5 mg .ROUTE .STK-MED ONE Stop: 02/03/20 11:33 Last Admin: 02/03/20 13:35 Dose: Not Given Documented by: [id number] Sodium Chloride (Nss 1000ml) 1,000 mls @ 100 mls/hr IV .Q10H KEYSHA Stop: 03/03/20 22:01 Last Admin: 02/03/20 18:04 Dose: Not Given Documented by: [id number] Infusion: 02/03/20 18:04 Dose: 0 mls/hr Documented by: [id number] Admin: 02/03/20 12:55 Dose: 100 mls/hr Documented by: [id number] Infusion: 02/03/20 12:55 Dose: 100 mls/hr Documented by: [id number] Admin: 02/03/20 07:33 Dose: 100 mls/hr Documented by: [id number] Infusion: 02/03/20 07:33 Dose: 100 mls/hr Documented by: [id number] Admin: 02/02/20 22:13 Dose: 100 mls/hr Documented by: [id number] Cefazolin Sodium (Ancef 2000mg) 2,000 mg in 15 mls @ 3.75 mls/min IV ONCE ONE Stop: 02/03/20 10:42 Last Admin: 02/03/20 10:00 Dose: 3.75 mls/min Documented by: [id number] Insulin Aspart (Insulin Aspart 100 Units/Ml 3 Ml Pen) 0 units SC ACHS [facility] Stop: 03/03/20 22:59 Last Admin: 02/02/20 22:43 Dose: 3 units Documented by: [id number] Cosigned by: [id number] Insulin Aspart (Insulin Aspart 100 Units/Ml 3 Ml Pen) 0 units SC Q6 [facility] Stop: 03/04/20 00:00 Last Admin: 02/03/20 15:37 Dose: Not Given Documented by: [id number] Cosigned by: [id number] Admin: 02/03/20 05:35 Dose: 3 units Documented by: [id number] Cosigned by: [id number] Admin: 02/02/20 23:40 Dose: Not Given Documented by: [id number] Miscellaneous Information (Nursing To Pharmacy Communication) 1 ea N/A TODAY [facility] Stop: 03/04/20 12:29 Last Admin: 02/03/20 15:37 Dose: Not Given Documented by: [id number] Non-Formulary Medication (Metoprolol Succ (Toprol Xl) (Toprol-Xl)) 25 mg PO QPM [facility] Stop: 03/03/20 20:59 Last Admin: 02/02/20 22:04 Dose: Not Given Documented by: [id number] Ondansetron HCl (Ondansetron Inj 2 Mg/Ml 2 Ml Vial) Confirm Administered Dose 4 mg .ROUTE .STK-MED [facility] Stop: 02/02/20 21:36 Last Admin: 02/02/20 21:38 Dose: 4 mg Documented by: [id number] Medical Decision Making Differential Diagnosis Fracture, subluxation, dislocation, contusion, ligamentous injury, neurovascular, compartment syndrome, rhabdomyolysis, as well as other pathologies. Medical Records Attestation: I reviewed the patient's medical records. Home Medications Current Medication List: was personally reviewed by me Laboratory Data Attestation: I reviewed the patient's lab results. Result diagrams: 02/03/20 05:32 02/03/20 05:32 Lab Results 02/02/20 02/02/20 02/02/20 Range/Units 18:18 18:18 18:18 WBC 2.32 L (4.8-10.8) K/uL RBC 3.53 L (4.2-5.4) M/uL Hgb 10.6 L (12.0-16.0) g/dL Hct 32.4 L (37-47) % MCV 91.8 (80-100) fL MCH 30.0 (25-34) pg MCHC 32.7 (32-36) g/dL RDW Std Deviation 54.2 H (36.4-46.3) fL RDW Coeff of Davida 16.2 H (11.5-14.5) % Plt Count 66 L (130-400) K/uL MPV 12.3 H (7.4-10.4) fL Immature Gran % (Auto) 0.0 % Neut % (Auto) 66.4 % Lymph % (Auto) 25.0 % [place] % (Auto) 6.9 % Eos % (Auto) 1.3 % Baso % (Auto) 0.4 % Neut # (Auto) 1.54 (1.4-6.5) K/uL Lymph # (Auto) 0.58 L (1.2-3.4) K/uL [place]ata # (Auto) 0.16 (0.11-0.59) K/uL Eos # (Auto) 0.03 (0-0.5) K/uL Baso # (Auto) 0.01 (0-0.2) K/uL Immature Gran # (Auto) 0.00 (0.00-0.02) K/uL Platelet Estimate Decreased L (Normal) Echinocytes 1+ PT 12.6 H (9.0-12.0) Seconds INR 1.2 H (0.9-1.1) APTT 23.7 (21.0-31.0) Seconds PTT Ratio 0.8 Sodium 141 (136-145) mmol/L Potassium 3.8 (3.5-5.1) mmol/L Chloride 110 H (98-107) mmol/L Carbon Dioxide 25 (21-32) mmol/L Anion Gap 6.0 (3-11) BUN 12 (7-18) mg/dl Creatinine 1.03 (0.6-1.2) mg/dl Est Cr Clr Drug Dosing Not Reportable Est GFR ( Amer) 62.0 Est GFR (Non-Af Amer) 53.5 BUN/Creatinine Ratio 11.9 (10-20) Glucose 112 H (70-99) mg/dl Calcium 9.2 (8.5-10.1) mg/dl Urine Color Urine Appearance (Clear) Urine pH (4.5-7.5) Ur Specific [place] (1.000-1.030) Urine Protein (Negative) Urine Glucose (UA) (Negative) Urine Ketones (Negative) Urine Blood (Negative) Urine Nitrite (Negative) Urine Bilirubin (Negative) Urine Urobilinogen (Negative) Ur Leukocyte Esterase (Negative) Hepatitis C Ab Screen (Neg) SARS-CoV-2 Ag (Rapid) (Negative) Blood Type Antibody Screen 02/02/20 02/02/20 02/02/20 Range/Units 18:48 19:30 20:10 WBC (4.8-10.8) K/uL RBC (4.2-5.4) M/uL Hgb (12.0-16.0) g/dL Hct (37-47) % MCV (80-100) fL MCH (25-34) pg MCHC (32-36) g/dL RDW Std Deviation (36.4-46.3) fL RDW Coeff of Davida (11.5-14.5) % Plt Count (130-400) K/uL MPV (7.4-10.4) fL Immature Gran % (Auto) % Neut % (Auto) % Lymph % (Auto) % [place] % (Auto) % Eos % (Auto) % Baso % (Auto) % Neut # (Auto) (1.4-6.5) K/uL Lymph # (Auto) (1.2-3.4) K/uL [place] # (Auto) (0.11-0.59) K/uL Eos # (Auto) (0-0.5) K/uL Baso # (Auto) (0-0.2) K/uL Immature Gran # (Auto) (0.00-0.02) K/uL Platelet Estimate (Normal) Echinocytes PT (9.0-12.0) Seconds INR (0.9-1.1) APTT (21.0-31.0) Seconds PTT Ratio Sodium (136-145) mmol/L Potassium (3.5-5.1) mmol/L Chloride (98-107) mmol/L Carbon Dioxide (21-32) mmol/L Anion Gap (3-11) BUN (7-18) mg/dl Creatinine (0.6-1.2) mg/dl Est Cr Clr Drug Dosing Est GFR ( Amer) Est GFR (Non-Af Amer) BUN/Creatinine Ratio (10-20) Glucose (70-99) mg/dl Calcium (8.5-10.1) mg/dl Urine Color Yellow Urine Appearance Clear (Clear) Urine pH 7.0 (4.5-7.5) Ur Specific [place] 1.010 (1.000-1.030) Urine Protein Negative (Negative) Urine Glucose (UA) Negative (Negative) Urine Ketones Negative (Negative) Urine Blood Negative (Negative) Urine Nitrite Negative (Negative) Urine Bilirubin Negative (Negative) Urine Urobilinogen Negative (Negative) Ur Leukocyte Esterase Negative (Negative) Hepatitis C Ab Screen (Neg) SARS-CoV-2 Ag (Rapid) Negative (Negative) Blood Type O Negative Antibody Screen NEGATIVE 02/02/20 Range/Units 20:10 WBC (4.8-10.8) K/uL RBC (4.2-5.4) M/uL Hgb (12.0-16.0) g/dL Hct (37-47) % MCV (80-100) fL MCH (25-34) pg MCHC (32-36) g/dL RDW Std Deviation (36.4-46.3) fL RDW Coeff of Davida (11.5-14.5) % Plt Count (130-400) K/uL MPV (7.4-10.4) fL Immature Gran % (Auto) % Neut % (Auto) % Lymph % (Auto) % [place] % (Auto) % Eos % (Auto) % Baso % (Auto) % Neut # (Auto) (1.4-6.5) K/uL Lymph # (Auto) (1.2-3.4) K/uL [place] # (Auto) (0.11-0.59) K/uL Eos # (Auto) (0-0.5) K/uL Baso # (Auto) (0-0.2) K/uL Immature Gran # (Auto) (0.00-0.02) K/uL Platelet Estimate (Normal) Echinocytes PT (9.0-12.0) Seconds INR (0.9-1.1) APTT (21.0-31.0) Seconds PTT Ratio Sodium (136-145) mmol/L Potassium (3.5-5.1) mmol/L Chloride (98-107) mmol/L Carbon Dioxide (21-32) mmol/L Anion Gap (3-11) BUN (7-18) mg/dl Creatinine (0.6-1.2) mg/dl Est Cr Clr Drug Dosing Est GFR ( Amer) Est GFR (Non-Af Amer) BUN/Creatinine Ratio (10-20) Glucose (70-99) mg/dl Calcium (8.5-10.1) mg/dl Urine Color Urine Appearance (Clear) Urine pH (4.5-7.5) Ur Specific [place] (1.000-1.030) Urine Protein (Negative) Urine Glucose (UA) (Negative) Urine Ketones (Negative) Urine Blood (Negative) Urine Nitrite (Negative) Urine Bilirubin (Negative) Urine Urobilinogen (Negative) Ur Leukocyte Esterase (Negative) Hepatitis C Ab Screen Neg (Neg) SARS-CoV-2 Ag (Rapid) (Negative) Blood Type Antibody Screen Imaging Data Attestation: I personally reviewed and interpreted this imaging study as follows: Radiologist's Impression: [facility] [place], [phone] XRay Report Patient: MANINDER ALVAREZ Date: 02/02/20MR#: [id number]: [address] ID:[id number]: [address] SBirth Date: [address] [place] [address] Zip: [place], [place] [address]Vbk: 74Location: EDSex: FRoom/Bed:Att Phy:Diagnosis: FALLPri Phy: Lucy Bonilla, DOService Date: 02/02/20Fam Phy:Interpreting Phy: Moise Henning MDAdmit Phy: Ordering Phy: Marcelo Gray MD cc: ~ XR chest 1V portable HISTORY: Pt c/o left hip pain COMPARISON: None. FINDINGS: The lungs are clear. Cardiac silhouette is normal in size. No pleural effusions. No pneumothorax. Old, healed left humeral neck fracture. IMPRESSION: No acute process. ACT 112: Negative or not required by law. Electronically signed by: Moise Henning M.D. 02/02/2020 7:22 PM Dictated: 02/02/201920Transcribed: 02/02/201920 [facility], [phone] XRay Report Patient: MANINDER ALVAREZ Date: 02/02/20MR#: [id number]: [address] riojasAcct ID:[id number]: [address]T SBirth Date: 1945[facility] Zip: [place], [place] [address]Hzd: 74Location: EDSex: FRoom/Bed:Att Phy:Diagnosis: FALLPri Phy: Lucy Bonilla, DOService Date: 02/02/20 Phy:Interpreting Phy: Moise Briones Phy: Ordering Phy: Marcelo Gray MD cc: ~ XR pelvis 1-2V routine, XR femur LT 2V routine CLINICAL HISTORY: Pt c/o left hip pain. Fall. COMPARISON STUDY: None. FINDINGS: Slightly comminuted and displaced intertrochanteric fracture involving the proximal left femur. The mid to distal left femur is intact. Old, healed bilateral pubic ring fractures are noted. Otmp-he-okmfnwdc osteoarthritis within the bilateral hips. The bones are osteopenic. No dislocation. IMPRESSION: 1. Left intertrochanteric hip fracture. 2. No acute fracture or dislocation within the pelvis or right hip. ACT 112: Negative or not required by law. Electronically signed by: Moise Henning M.D. 02/02/2020 7:19 PM Dictated: 02/02/201916Transcribed: 02/02/201916 [facility], [phone] XRay Report Patient: MANINDER ALVAREZ Date: 02/02/20#: [id number]: [address] Ac[address] ID:[id number]: [address] Date: [address] [place] [address] Zip: [place] [address]Ats: 74Location: EDSex: FRoom/Bed:Att Phy:Diagnosis: FALLPri Phy: Lucy Bonilla, DOService Date: 02/02/20 Phy:Interpreting Phy: Moise Henning MDAdmit Phy: Ordering Phy: Marcelo Gray MD cc: ~ XR pelvis 1-2V routine, XR femur LT 2V routine CLINICAL HISTORY: Pt c/o left hip pain. Fall. COMPARISON STUDY: None. FINDINGS: Slightly comminuted and displaced intertrochanteric fracture involving the proximal left femur. The mid to distal left femur is intact. Old, healed bilateral pubic ring fractures are noted. Kpnk-rv-ccpyakof osteoarthritis within the bilateral hips. The bones are osteopenic. No dislocation. IMPRESSION: 1. Left intertrochanteric hip fracture. 2. No acute fracture or dislocation within the pelvis or right hip. ACT 112: Negative or not required by law. Electronically signed by: Moise Henning M.D. 02/02/2020 7:19 PM Dictated: 02/02/201916Transcribed: 02/02/201916 ECG Data Attestation: I personally reviewed and interpreted this ECG as follows: Indication: + other Rate (beats per minute): 88 Rhythm: + normal sinus ECG Intervals/blocks: + Normal QT-c (433) ECG Hoyt: + Normal ECG ST segments: no ST depression and no ST elevation Comparison ECG Date: no prior available MDM Narrative Patient was seen and evaluated as above in room B12B. Review was performed of nursing notes and vital signs. I did review pertinent previous visits and patient history. After obtaining a thorough history and physical examination the above work up was performed. This is a 74-year-old female who presents emergency department complaining of left hip pain. X-rays are concerning for a left hip fracture. I did discuss the case with the orthopedic surgeon on-call. The patient was discussed with the medicine service on-call. Patient is EKG as well as laboratory work was reviewed. She was given Dilaudid here for her pain. Repeat examination revealed improvement the patient's symptoms. While in the department, I personally reevaluated the patient several times and each time the patient was found to be resting comfortably. The patient was educated upon management, educated upon todays findings/results, educated upon importance of follow up from today's visit, educated upon symptoms in which to return, had questions answered prior to discharge, verbalized understanding, and was discharged home in good condition. An order was placed for continuous cardiac monitoring. The monitor shows a rate of 100 with Normal SInus rhythm. I attest that I have personally reviewed the patient medication list. The patient was evaluated during a period of high volume and high acuity while the hospital was at overcapacity during the global COVID-19 pandemic, and that diagnosis was suspected/considered upon their initial presentation. Their evaluation, treatment and testing was consistent with current guidelines for patients who present with complaints or symptoms that may be related to COVID-19 . Impression & Plan Closed left hip fracture Discharge Plan Visit Data Chief Complaint: Fall ED Provider: Marcelo Gray Discharge Problem: Closed left hip fracture Patient Disposition: Admitted As Inpatient Discharge Instructions Interventions: ED Discharge Assessment Last Done: 02/02/20 21:26 Discharge Problem: Closed left hip fracture Qualifiers: Encounter type: initial encounter Qualified Code(s): S72.002A - Fracture of unspecified part of neck of left femur, initial encounter for closed fracture
[2020-02-02] MEDS: HYDROmorphone INJ 0.5 MG/0.5 ML SYR IV PRN ×2 (18:42→19:16)
[2020-02-02 18:49] LABS: INR 1.2 (0.9-1.1); Partial Thromboplastin Ratio 0.8; Partial Thromboplastin Time 23.7 Seconds (21.0-31.0); Prothrombin Time 12.6 Seconds (9.0-12.0)
[2020-02-02 18:56] LABS: BUN Creatinine Ratio 11.9 (10-20); Blood Urea Nitrogen 12 mg/dl (7-18); Calcium 9.2 mg/dl (8.5-10.1); Carbon Dioxide 25 mmol/L (21-32); Chloride 110 mmol/L (98-107); Est GFR (Non-African American) 53.5; Glucose 112 mg/dl (70-99); Potassium 3.8 mmol/L (3.5-5.1); Sodium 141 mmol/L (136-145)
--- NOTE | 2020-02-02 19:20 | XRay Report ---
XR pelvis 1-2V routine, XR femur LT 2V routine CLINICAL HISTORY: Pt c/o left hip pain. Fall. COMPARISON STUDY: None. FINDINGS: Slightly comminuted and displaced intertrochanteric fracture involving the proximal left fe mur. The mid to distal left femur is intact. Old, healed bilateral pubic ring fractures are noted. Mi sn-nb-fpcumdjo osteoarthritis within the bilateral hips. The bones are osteopenic. No dislocation. IMPRESSION: 1. Left intertrochanteric hip fracture. 2. No acute fracture or dislocation within the pelvis or right hip. ACT 112: Negative or not required by law. Electronically signed by: Moise Henning M.D. 02/02/2020 7:19 PM
--- NOTE | 2020-02-02 19:20 | XRay Report ---
XR pelvis 1-2V routine, XR femur LT 2V routine CLINICAL HISTORY: Pt c/o left hip pain. Fall. COMPARISON STUDY: None. FINDINGS: Slightly comminuted and displaced intertrochanteric fracture involving the proximal left fe mur. The mid to distal left femur is intact. Old, healed bilateral pubic ring fractures are noted. Mi pn-om-xqiksdib osteoarthritis within the bilateral hips. The bones are osteopenic. No dislocation. IMPRESSION: 1. Left intertrochanteric hip fracture. 2. No acute fracture or dislocation within the pelvis or right hip. ACT 112: Negative or not required by law. Electronically signed by: Moise Henning M.D. 02/02/2020 7:19 PM
--- NOTE | 2020-02-02 19:23 | XRay Report ---
XR chest 1V portable HISTORY: Pt c/o left hip pain COMPARISON: None. FINDINGS: The lungs are clear. Cardiac silhouette is normal in size. No pleural effusions. No pneumot horax. Old, healed left humeral neck fracture. IMPRESSION: No acute process. ACT 112: Negative or not required by law. Electronically signed by: Moise Henning M.D. 02/02/2020 7:22 PM
[2020-02-02 19:41] LABS: Basophils # (auto) 0.01 K/uL (0-0.2); Basophils % (auto) 0.4 %; Echinocytes 1+; Eosinophils # (auto) 0.03 K/uL (0-0.5); Eosinophils % (auto) 1.3 %; Hematocrit (blood only) 32.4 % (37-47); Hemoglobin 10.6 g/dL (12.0-16.0); Lymphocytes # (auto) 0.58 K/uL (1.2-3.4); Mean Corpuscular Hgb Conc 32.7 g/dL (32-36); Mean Corpuscular Volume 91.8 fL (80-100); Mean Platelet Volume 12.3 fL (7.4-10.4); Monocytes # (auto) 0.16 K/uL (0.11-0.59); Monocytes % (auto) 6.9 %; Neutrophils # (auto) 1.54 K/uL (1.4-6.5); Neutrophils % (auto) 66.4 %; Platelet Count 66 K/uL (130-400); Platelet Estimate Decreased (Normal); RDW Coefficient of Variation 16.2 % (11.5-14.5); RDW Standard Deviation 54.2 fL (36.4-46.3); Red Blood Count 3.53 M/uL (4.2-5.4); White Blood Count 2.32 K/uL (4.8-10.8)
[2020-02-02 19:46] LABS: Appearance Urine Clear (Clear); Bilirubin Urine Negative (Negative); Blood Urine Negative (Negative); Color Urine Yellow; Glucose Urine UA Negative (Negative); Ketones Urine Negative (Negative); Leukocyte Esterase Urine Negative (Negative); Nitrite Urine Negative (Negative); Protein Urine Negative (Negative); Urobilinogen Urine Negative (Negative)
[2020-02-02] MEDS ORDERED: METOPROLOL SUCCINATE 25 MG PO SCH (21:00)
[2020-02-02] MEDS ORDERED: ONDANSETRON INJ 2 MG/ML 2 ML VIAL ONE (21:35)
[2020-02-02] MEDS ORDERED: hydrALAZINE HCL 20 MG/ML VIAL IV PRN (22:02)
[2020-02-02] MEDS ORDERED: MoRPHine SULFATE 2 MG/ML CARP IV PRN (22:02)
[2020-02-02] MEDS ORDERED: POLYETHYLENE (MIRALAX) 17 GM PACK PO PRN (22:02)
[2020-02-02] MEDS ORDERED: ONDANSETRON INJ 2 MG/ML 2 ML VIAL IV PRN (22:02)
[2020-02-02] MEDS ORDERED: LACTULOSE SYRUP 20 GM/30 ML UDC PO PRN (22:07)
[2020-02-02] MEDS: SODIUM CHLORIDE 0.9% 1000ML 1,000 ML IV SCH (22:13)
[2020-02-02] MEDS ORDERED: GLUCOSE 40% GEL 15 GM TUBE PO PRN (22:15)
[2020-02-02] MEDS ORDERED: CARBOHYDRATES FOR HYPOGLYCEMIA PO PRN (22:15)
[2020-02-02] MEDS ORDERED: DEXTROSE 50% 50 ML SYRINGE IV PRN (22:15)
[2020-02-02] MEDS ORDERED: GLUCAGON FOR INJ 1 MG VIAL IM PRN (22:15)
[2020-02-02] MEDS ORDERED: GLUCOSE 10 TABS/TUBE PO PRN (22:15)
[2020-02-02] MEDS ORDERED: INSULIN ASPART 100 UNITS/ML 3 ML PEN SC SCH (23:00)
[2020-02-02] MEDS ORDERED: Nursing to Pharmacy Communication SCH (23:00)
[2020-02-02] MEDS: INSULIN ASPART 100 UNITS/ML 3 ML PEN SC SCH (23:40)
--- NOTE | 2020-02-03 00:09 | History and Physical Report ---
DATE OF ADMISSION: 02/02/2020 CHIEF COMPLAINT: Status post fall and left hip fracture. HISTORY OF PRESENT ILLNESS: A 74-year-old female with past medical history significant for type 2 diabetes, chronic kidney disease stage III, peripheral artery disease, peripheral neuropathy, history of CVA, history of esophageal varices and cirrhosis, portal hypertension, hypertension, alcoholic cirrhosis of liver, slow transit constipation, osteoarthrosis, osteoporosis, peripheral sensory neuropathy, pancytopenia, history of breast cancer, who presents with fall and left hip fracture. The patient is at [facility]. She thought someone rang her isbell and , she tried to get up from the bed and her legs felt sleepy and she fell on the left leg and she called her sister who told her to call 911 and then she called 911 and she was brought in here and found to have left hip fracture. With the pain medication, pain is resolved, but she is having dry heaves. Denies any other complaints. No headache, no blurred visions. Hard of hearing. No runny nose, no sore throat, no cough. Appetite is okay. No dysphagia. No chest pain, no shortness of breath. No abdominal pain. Normal bowel and bladder movements. Currently resting comfortably and hemodynamically stable. ALLERGIES: SULFA ANTIBIOTICS. PAST MEDICAL HISTORY: As mentioned above. PAST SURGICAL HISTORY: Colonoscopy, EGDs, right partial mastectomy, radiation treatment, cholecystectomy. MEDICATIONS: The patient is on Tylenol 650 mg p.o. q.i.d. p.r.n., Fosamax 70 mg p.o. weekly, Lipitor 10 mg p.o. daily, glipizide 10 mg as directed, lactulose 30 mL p.o. daily p.r.n., lisinopril 10 mg p.o. daily, magnesium oxide 400 mg p.o. daily, Toprol-XL 25 mg p.o. daily, omeprazole 20 mg p.o. daily, Seroquel 25 mg at bedtime, tamoxifen 20 mg p.o. daily. FAMILY HISTORY: Significant for mother has dementia; father with OR. SOCIAL HISTORY: Currently living at [facility]. No smoking. Used to drink heavily in the past, last used in April 2009. No drug use. REVIEW OF SYSTEMS: As per HPI. Rest of the review of systems negative. PHYSICAL EXAMINATION: GENERAL: The patient is of moderate build, not in acute distress. VITAL SIGNS: Temperature 36.9, pulse 73, respiratory rate 18, blood pressure 135/55, oxygen 96% on room air. HEENT: Pupils equal, round, and reactive to light. Oral mucosa moist. NECK: No neck masses seen. CARDIOVASCULAR: S1, S2 heard, regular rate and rhythm. No murmur, no gallop. RESPIRATORY SYSTEM: Normal AP diameter. No accessory muscle use. No wheezing, no crackles. ABDOMEN: Soft, bowel sounds present, nontender. No distention. CENTRAL NERVOUS SYSTEM: Cranial nerves II-XII grossly intact. Nonfocal. EXTREMITIES: Left lower extremity is shortened and externally rotated. No erythema seen. LABORATORY DATA: WBC 2.3, hemoglobin 10.6, hematocrit 32.4, platelets 66. PT 12.6, INR 1.2, APTT 23.7. Sodium 141, potassium 3.8, chloride 110, CO2 of 25, BUN 12, creatinine 1.03, serum glucose 112, calcium 9.2. Urinalysis negative. SARS-CoV-2 antigen rapid negative. IMAGING DATA: Pelvis x-ray, left intertrochanteric hip fracture. Femur x-ray, unspecified, left intertrochanteric hip fracture. Chest x-ray, no acute process. EKG: Sinus rhythm with sinus arrhythmia with a rate of 88. ASSESSMENT AND PLAN: This is A 74-year-old female who presents with mechanical fall and left hip fracture. 1. Mechanical fall, left hip fracture: Pain control. Keep n.p.o., gentle fluids. Chest x-ray is okay. EKG seems okay. Patient should be at acceptable risk to proceed with any procedure. Ortho consulted by the ER. Monitor in the medical floor. 2. History of hypertension: We will hold the lisinopril for any procedures .Placed on IV hydralazine p.r.n. Continue her Toprol-XL. 3. History of diabetes: Hold glipizide. We will place on insulin sliding scale and monitor the blood sugars. 4. History of alcoholic liver cirrhosis. History of pancytopenia: Continue her omeprazole, lactulose. Closely monitor for any volume overload. 5 Gastroesophageal reflux disease: Continue omeprazole. 6. History of breast cancer: Right partial mastectomy, on tamoxifen. 7 Chronic kidney disease stage III: Creatinine is 1.03. We will follow the laboratories. 8. History of cerebrovascular accident: The patient ambulates without any support. 9 Deep venous thrombosis prophylaxis, as per ortho. DISPOSITION: Closely monitor in the medical floor. Level 1 full code. Expect to discharge back to [facility] when patient is stable. PT and OT prior to discharge. Social service to help with discharge planning. ANTHONY
[2020-02-03] MEDS: ACETAMINOPHEN 325 MG TAB PO PRN ×2 (01:14→20:52)
[2020-02-03] MEDS: INSULIN ASPART 100 UNITS/ML 3 ML PEN SC SCH ×5 (05:35→20:49)
[2020-02-03 05:48] LABS: Hematocrit (blood only) 27.5 % (37-47); Hemoglobin 8.8 g/dL (12.0-16.0); Mean Corpuscular Hemoglobin 29.3 pg (25-34); Mean Corpuscular Volume 91.7 fL (80-100); Mean Platelet Volume 11.7 fL (7.4-10.4); Platelet Count 57 K/uL (130-400); RDW Coefficient of Variation 16.3 % (11.5-14.5); RDW Standard Deviation 54.7 fL (36.4-46.3); White Blood Count 2.28 K/uL (4.8-10.8)
[2020-02-03 06:20] LABS: Basophils # (auto) 0.01 K/uL (0-0.2); Basophils % (auto) 0.4 %; Lymphocytes # (auto) 0.29 K/uL (1.2-3.4); Lymphocytes % (auto) 12.7 %; Monocytes # (auto) 0.16 K/uL (0.11-0.59); Neutrophils # (auto) 1.82 K/uL (1.4-6.5); Neutrophils % (auto) 79.9 %; Ovalocytes 1+
[2020-02-03 06:24] LABS: BUN Creatinine Ratio 16.2 (10-20); Calcium 8.6 mg/dl (8.5-10.1); Est GFR (African American) 65.9; Est GFR (Non-African American) 56.8; Magnesium 1.7 mg/dl (1.8-2.4); Potassium 4.2 mmol/L (3.5-5.1)
[2020-02-03 06:58] LABS: Estimated Average Glucose 148 mg/dl; Hemoglobin A1C 6.8 % (4.5-5.6)
--- NOTE | 2020-02-03 07:22 | Anesthesiology Consultation ---
Date of Service February 03, 2020 Assessment & Plan (1) Encounter for pre-operative examination: Chart Review Chart Review: Acceptable Risk for Surgery (needs covid test, will speak with surgeon abou pancyopenia and strategy) History Surgery Operation Date: 02/03/20 09:30 Proposed Procedures p Intramedullary Jose Angel Femur(Left) - Hua Siddiqi, Height/Weight Height: 5 ft 1 in Weight: 69.7 kg Allergies Allergy/AdvReac Type Severity Reaction Status Date / Time Sulfa (Sulfonamide Allergy Unknown RASH Verified 02/02/20 20:40 Antibiotics) Medications Home Medications Medication Instructions Recorded Confirmed Last Taken acetaminophen [Tylenol] 650 mg PO QID PRN 02/02/20 02/02/20 Unknown alendronate [Fosamax] 70 mg PO WK 02/02/20 02/02/20 Unknown atorvastatin [Lipitor] 10 mg PO DAILY 02/02/20 02/02/20 Unknown glipizide [Glucotrol XL] 10 mg PO UD 02/02/20 02/02/20 Unknown lactulose [Enulose] 30 ml PO DAILY PRN 02/02/20 02/02/20 Unknown lisinopril 10 mg PO DAILY 02/02/20 02/02/20 Unknown magnesium oxide 400 mg PO DAILY 02/02/20 02/02/20 Unknown metoprolol succinate [Toprol XL] 25 mg PO DAILY 02/02/20 02/02/20 Unknown omeprazole 20 mg PO DAILY 02/02/20 02/02/20 Unknown quetiapine [Seroquel] 25 mg PO HS 02/02/20 02/02/20 Unknown tamoxifen 20 mg PO DAILY 02/02/20 02/02/20 Unknown Active Medications Generic Name Dose Route Start Last Admin Trade Name Freq PRN Reason Stop Dose Admin Acetaminophen 650 mg 02/02/20 22:02 02/03/20 01:14 Acetaminophen 325 Mg Tab PO 03/03/20 22:01 650 mg Q4H PRN Administration pain/fever Sodium Chloride 1,000 mls @ 100 mls/hr 02/02/20 22:02 02/03/20 07:33 Nss 1000ml IV 03/03/20 22:01 100 mls/hr .Q10H KEYSHA Administration Insulin Aspart 0 units 02/03/20 00:00 02/03/20 05:35 Insulin Aspart 100 Units/Ml 3 Ml Pen SC 03/04/20 00:00 3 units Q6 KEYSHA Administration NPO Date Last Intake of Fluids: 02/02/20 Time Last Intake of Fluids: 23:59 Date Last Intake of Solids: 02/02/20 Time Last Intake of Solids: 23:59 Past Medical History Medical History (Updated 02/03/20 @ 07:56 by Gui Harvey MD) Breast cancer Cirrhosis CKD (chronic kidney disease) CVA (cerebral vascular accident) Diabetes mellitus Esophageal 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 HTN (hypertension) PAD (peripheral artery disease) Pancytopenia Peripheral neuropathy Past Surgical History Surgical History (Updated 02/03/20 @ 07:26 by Gui Harvey MD) History of esophagogastroduodenoscopy (EGD) History of partial mastectomy of right breast Hx of cholecystectomy Social History Smoking Status: Never smoker Hx Alcohol Use: No Hx Substance Use: No Physical Exam Vital Signs Last Vital Signs Temp 36.6 C 02/03/20 06:49 Pulse 105 H 02/03/20 06:49 Resp 20 02/03/20 06:49 BP 177/72 H 02/03/20 06:49 Pulse Ox 94 02/03/20 06:49 Testing Laboratory Results 02/03/20 05:32 02/03/20 05:32 PT 12.6 Seconds (9.0-12.0) H 02/02/20 18:18 INR 1.2 (0.9-1.1) H 02/02/20 18:18 APTT 23.7 Seconds (21.0-31.0) 02/02/20 18:18 Hemoglobin A1c 6.8 % (4.5-5.6) H 02/03/20 05:32 Urine Color Yellow 02/02/20 19:30 Urine Appearance Clear (Clear) 02/02/20 19:30 Urine pH 7.0 (4.5-7.5) 02/02/20 19:30 Ur Specific [place] 1.010 (1.000-1.030) 02/02/20 19:30 Urine Protein Negative (Negative) 02/02/20 19:30 Urine Glucose (UA) Negative (Negative) 02/02/20 19:30 Urine Ketones Negative (Negative) 02/02/20 19:30 Urine Nitrite Negative (Negative) 02/02/20 19:30 Ur Leukocyte Esterase Negative (Negative) 02/02/20 19:30 Blood Type O Negative 02/02/20 20:10 Antibody Screen NEGATIVE 02/02/20 20:10 02/03/20 02/03/20 02/02/20 06:06 05:31 22:23 POC Glucose 199 H 222 H 225 H Chest X-Ray Date: 02/02/20 Findings: + NAD
[2020-02-03] MEDS: SODIUM CHLORIDE 0.9% 1000ML 1,000 ML IV SCH ×3 (07:33→18:04)
[2020-02-03] MEDS ORDERED: LIDOCAINE HCL 2% 2 ML VIAL/AMP(20MG/ML) INFIL ONE (08:51)
[2020-02-03] MEDS ORDERED: PROPOFOL IV EMULSION 10 MG/ML 20 ML VIAL IV ONE (08:51)
[2020-02-03] MEDS ORDERED: ROCURONIUM BROMIDE 10 MG/ML 5 ML VIAL IV ONE (08:51)
[2020-02-03] MEDS ORDERED: ONDANSETRON INJ 2 MG/ML 2 ML VIAL ONE (08:51)
[2020-02-03] MEDS ORDERED: fentaNYL citrate 100 MCG/2 ML VIAL ONE ×2 (08:52→10:27)
--- NOTE | 2020-02-03 09:30 | History & Physical Bridge Note ---
Date of Service February 03, 2020 History & Physical Bridge Note I have examined the patient, reviewed the History & Physical and in the interval since the performance of the History & Physical I have noted the following changes of clinical significance: no changes noted
--- NOTE | 2020-02-03 09:33 | Orthopedic Consultation ---
Date of Consultation February 03, 2020 Assessment & Plan (1) Closed left hip fracture: The patient is a 74yo female with displaced left intertrochanteric hip fracture sustained after a fall from standing height. The patient was medically stabilized on 02/03/2020. I indicated the patient for left hip cephalomedullary nail. The patient was informed of the risks and benefits of surgery, which include but not limited to infection, bleeding, blood clots, damage to nerves, vessels, bone and soft tissue, dislocation, leg length discrepancy, malunion, nonunion, failure of the implants, need for additional surgery and . The patient chose to proceed with surgical intervention and informed consent was obtained. History of Present Illness Reason for Consultation: Left intertrochanteric hip fracture Attending Physician: Paula Petersen MD History of Present Illness The patient is a 74-year-old female who presented to [facility] secondary to acute traumatic left hip pain sustained after a mechanical fall from standing height. X-rays taken in the emergency department demonstrated a displaced intertrochanteric left hip fracture. The patient was admitted for further treatment for her left hip fracture. Denies any numbness, tingling to the left lower extremity. Denies any associated injuries. Denies hitting head or loss of consciousness. Allergies Allergy/AdvReac Type Severity Reaction Status Date / Time Sulfa (Sulfonamide Allergy Unknown RASH Verified 02/02/20 20:40 Antibiotics) Home Medications Medication Instructions Recorded Confirmed Type acetaminophen [Tylenol] 650 mg PO QID PRN 02/02/20 02/02/20 History alendronate [Fosamax] 70 mg PO WK 02/02/20 02/02/20 History atorvastatin [Lipitor] 10 mg PO DAILY 02/02/20 02/02/20 History glipizide [Glucotrol XL] 10 mg PO UD 02/02/20 02/02/20 History lactulose [Enulose] 30 ml PO DAILY PRN 02/02/20 02/02/20 History lisinopril 10 mg PO DAILY 02/02/20 02/02/20 History magnesium oxide 400 mg PO DAILY 02/02/20 02/02/20 History metoprolol succinate [Toprol XL] 25 mg PO DAILY 02/02/20 02/02/20 History omeprazole 20 mg PO DAILY 12/11/20 12/11/20 History quetiapine [Seroquel] 25 mg PO HS 02/02/20 02/02/20 History tamoxifen 20 mg PO DAILY 02/02/20 02/02/20 History Patient History Medical History Breast cancer Cirrhosis CKD (chronic kidney disease) CVA (cerebral vascular accident) Diabetes mellitus Esophageal 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 HTN (hypertension) PAD (peripheral artery disease) Pancytopenia Peripheral neuropathy Surgical History History of esophagogastroduodenoscopy (EGD) History of partial mastectomy of right breast Hx of cholecystectomy Social History Smoking Status: Never smoker Hx Alcohol Use: No Hx Substance Use: No Preferred Language: Iranian Communication Ability: Effective Box Office Agent Required: No Beliefs That Will Affect Care: None Current Living Situation: Alone Other Information That Helps Us Care for You: No Feels Safe at Home: Yes Safety Concerns: Feels Safe At This Time Assistive Devices: None Review of Systems Review of Systems: All systems reviewed & are unremarkable except as noted in HPI & below Constitutional: as per Subjective / HPI Physical Exam Physical Exam: LLE NVSI +EHL/FHL/TA/GS SILT grossly, +2 DP pulse, compartments soft NT, short and externally rotated. Skin overlying left hip clean dry and intact. Constitutional: WD/WN, vitals as above Results & Data ([facility]) Vital Signs (Past 12 Hours) Vital Signs Temp Pulse Resp BP Pulse Ox 02/03/20 06:49 36.6 C 105 H 20 177/72 H 94 02/02/20 23:38 36.5 C 76 18 146/65 H 95 02/02/20 21:55 36.4 C L 78 18 163/68 H 100 Diagnostic Findings XR pelvis 1-2V routine, XR femur LT 2V routine CLINICAL HISTORY: Pt c/o left hip pain. Fall. COMPARISON STUDY: None. FINDINGS: Slightly comminuted and displaced intertrochanteric fracture involving the proximal left femur. The mid to distal left femur is intact. Old, healed bilateral pubic ring fractures are noted. [id number] osteoarthritis within the bilateral hips. The bones are osteopenic. No dislocation. IMPRESSION: 1. Left intertrochanteric hip fracture. 2. No acute fracture or dislocation within the pelvis or right hip.
[2020-02-03] MEDS ORDERED: EPINEPHrine INJ 1 MG/ML AMP ONE (09:34)
[2020-02-03] MEDS ORDERED: BUPIVACAINE 0.5 % 5 MG/1 ML MPF 30ML VIAL ONE (09:34)
[2020-02-03] MEDS ORDERED: ONDANSETRON INJ 2 MG/ML 2 ML VIAL IV PRN (09:35)
[2020-02-03] MEDS ORDERED: ATROPINE SULFATE 0.1 MG/ML 10ML SYR IV PRN (09:35)
[2020-02-03] MEDS ORDERED: PHENYLEPHRINE HCL 10 MG/ML VIAL ONE (10:38)
[2020-02-03] MEDS ORDERED: ceFAZolin 2000MG 2,000 MG/15 ML SYR IV ONE (10:39)
--- NOTE | 2020-02-03 11:27 | Post Operative Brief Note ---
Immediate Post Op Note v1 Date of Surgery February 03, 2020 Pre & Post Diagnosis Operation Date: 02/03/20 09:30 Pre-Op Diagnosis: Closed left hip fracture Post-Op Diagnosis: Closed left hip fracture I identified the patient and participated in the time-out.: Yes Procedure Operation Date: 02/03/20 09:30 Actual Procedures p Left Hip Cephelomedullary Nail(Left) - Hua Siddiqi DO Surgeon Hua Siddiqi DO Nut [employer]ller none Estimated Blood Loss 75 Findings Consistent with Post-Op Diagnosis Specimens none Anesthesia Type General Complications none Disposition Disposition: Recovery Room Overlapping Procedure I was present for: the critical portions of procedure. I was immediately available: during the entire case. Back up surgeon: was not required during procedure.
--- NOTE | 2020-02-03 11:31 | Operative Report ---
Post Operative Report Pre & Post Diagnosis Operation Date: 02/03/20 09:30 Pre-Op Diagnosis: Closed left hip fracture Post-Op Diagnosis: Closed left hip fracture I identified the patient and participated in the time-out.: Yes Procedure Operation Date: 02/03/20 09:30 Actual Procedures p Left Hip Cephelomedullary Nail(Left) - Hua Siddiqi DO Surgeon Hua Siddiqi DO Conflict Resolution Professional none Estimated Blood Loss 75 Findings Consistent with Post-Op Diagnosis Specimens none Anesthesia Type General Indications The patient is a 74yo female with displaced left intertrochanteric hip fracture sustained after a fall from standing height. The patient was medically stabilized on 02/03/2020. I indicated the patient for left hip cephalomedullary nail. The patient was informed of the risks and benefits of surgery, which include but not limited to infection, bleeding, blood clots, damage to nerves, vessels, bone and soft tissue, dislocation, leg length discrepancy, malunion, nonunion, failure of the implants, need for additional surgery and . The patient chose to proceed with surgical intervention and informed consent was obtained. Description of Procedure Following induction of adequate general anesthesia, the patient was placed on the fracture table. The right leg was placed in the well leg falk and the left leg in the traction leg falk. All bony prominences were protected. Utilizing c-arm fluoroscopy closed reduction of the fracture was performed. Once satisfied with fracture reduction the left hip was prepped and draped in the usual sterile manner. A time out was performed, patient identified and site lynette verified. Appropriate IV antibiotics were given. The incision was made from the tip of the greater trochanter proximally. Subcutaneous tissue was sharply dissected to the tip of the greater trochanter, electrocautery used for hemostasis. Under fluoroscopic guidance the drill tipped guidewire was inserted at the tip of the greater trochanter and advanced into the medullary canal. Utilizing the intramedullary drill the guidewire was overdrilled with tissue protector attached. A 12 mm short Synthes TFN was inserted and impacted into position and confirmed by c-arm fluoroscopy. Next the aiming arm was attached to the insertion handle. A incision was made and carried down through subcutaneous tissues to bone. The blade guide sleeve was inserted and secured down to bone. The guide wire was passed across the fracture site to the tip of the femoral head, position was confirmed in the AP and lateral planes utilizing c-arm fluoroscopy. A antirotational pin was temporarily inserted anteriorly across the fracture site at this time. The guide pin was measured and the 11.0mm drill bit passed over the guide pin to open lateral cortex followed by a 6.0mm/10.0mm cannulated reamer to a depth of 105 mm. Next the helical blade was inserted and locked proximally. Traction was released and interfragmentary compression applied. Distally a stab incision was made in the skin and carried down to bone. The triple trocar assembly was inserted into the aiming guide to bone. Utilizing a 4.0mm drill, both cortices were drilled. The nail was locked distally using a single 4.9mm x 36 mm locking bolt. The aiming guide was removed at this time and final radiographs were obtained utilizing c-arm fluoroscopy to confirm overall position and fracture reduction. Incisions were irrigated with copious amounts of sterile saline solution. Subcutaneous tissue were injected utilizing .5% marcaine with epi. Deep closure was performed using #1 Vicryl followed by 2-0 Vicryl for subcutaneous tissues and daniel in the skin. Sterile dressing, Xeroform gauze, 4x4s and tegaderm were applied. The patient tolerated the procedure well and was transported to the PACU in stable condition. I attest to the content of the Intraoperative Record and any orders documented therein. Any exceptions are noted below.
[2020-02-03] MEDS: HYDROmorphone INJ 1 MG/ML SYRINGE IV PRN ×2 (11:33→11:38)
[2020-02-03] MEDS ORDERED: NEOSTIGMINE METHYLSULFATE 5 MG/5 ML SYR ONE (11:36)
[2020-02-03] MEDS ORDERED: GLYCOPYRROLATE 0.2 MG/ML VIAL ONE (11:36)
--- NOTE | 2020-02-03 11:51 | Orthopedic Progress Note ---
Date of Service February 03, 2020 Assessment & Plan (1) Closed left hip fracture: Status post left hip cephalomedullary nail -Ancef x24 -DVT prophylaxis: SCDs, teds, Xarelto daily -Toe-touch weightbearing left lower extremity -PT/OT when medically stable -Postoperative x-ray demonstrates a well aligned well fixed orthopedic implant, anatomic alignment of the fracture site, no new fracture or dislocation. -A.m. labs Admission and Anticipated Discharge Date Admission Date: February 02, 2020 Subjective Post Operative Progress Note Patient seen in PACU, comfortable, denies complaints, pain well controlled with medication, no acute issues. Review of Systems Review of Systems: All systems reviewed & are unremarkable except as noted in HPI & below Constitutional: as per Subjective / HPI Physical Exam Physical Exam: LLE NVSI +EHL/FHL/TA/GS SILT grossly, +2 DP pulse, compartments soft NT, dressing cdi. Constitutional: WD/WN, vitals as above Results & Data ([facility]) Vital Signs (Past 12 Hours) Vital Signs Temp Pulse Pulse Resp BP Pulse Ox 02/03/20 11:45 80 16 131/53 L 100 02/03/20 11:35 78 16 135/60 100 02/03/20 11:28 36.3 C L 98 H 16 124/51 L 99 02/03/20 06:49 36.6 C 105 H 20 177/72 H 94
--- NOTE | 2020-02-03 11:51 | Fluoroscopy Report ---
INTRAOPERATIVE RADIOGRAPHS CLINICAL HISTORY: Open reduction and internal fixation of the left femur. Fluoroscopy time: 116 seconds. FINDINGS: 5 spot fluoroscopic views of the left hip and femur are correlated with radiographs dated 04/04/2019. Intertrochanteric and intramedullary nails have been placed, transfixing an intertrochante dorina fracture of left femur. Near-anatomic alignment is restored. A single cortical lag screw transfix es the distal end of the intramedullary nail. Overlying soft tissue edema is observed. IMPRESSION: Intraoperative images from open reduction and internal fixation of the left femur. Electronically signed by: Angelito Nur M.D. 02/03/2020 11:50 AM
--- NOTE | 2020-02-03 11:57 | Anesthesiology Progress Note ---
Date of Service February 03, 2020 Anesthesia Post Procedure Vital Signs Vital Signs: Temp Pulse Pulse Pulse Resp BP BP 02/03/20 11:45 80 16 131/53 L 02/03/20 11:35 78 16 135/60 02/03/20 11:28 36.3 C L 98 H 16 124/51 L 02/03/20 06:49 36.6 C 105 H 20 177/72 H 02/02/20 23:38 36.5 C 76 18 146/65 H 02/02/20 21:55 36.4 C L 78 18 163/68 H 02/02/20 21:25 73 18 135/55 L 02/02/20 19:41 78 18 157/72 H 02/02/20 18:11 36.9 C 90 17 170/80 H Pulse Ox 02/03/20 11:45 100 02/03/20 11:35 100 02/03/20 11:28 99 02/03/20 06:49 94 02/02/20 23:38 95 02/02/20 21:55 100 02/02/20 21:25 96 02/02/20 19:41 95 02/02/20 18:11 98 Pain Intensity Left Hip: Pain Intensity: 5 Transfer of Care Handoff Completed per policy Notes Mental Status: alert / awake / arousable Patient Amnestic to Procedure: Yes Nausea / Vomiting: adequately controlled Pain: adequately controlled Airway Patency, RR, SpO2: stable & adequate BP & HR: stable & adequate Hydration State: stable & adequate Anesthetic Complications: no major complications apparent
--- NOTE | 2020-02-03 12:11 | XRay Report ---
LEFT HIP 2 VIEWS CLINICAL HISTORY: Postoperative examination. FINDINGS: AP and crosstable lateral portable views of the left hip are compared to study dated 2019. The skeletal structures are osteopenic. Intertrochanteric and intramedullary nails transfix an intertrochanteric fracture of the left femur. Near-anatomic alignment is restored. A single cortical lag screw transfixes the distal end of the intramedullary nail. The orthopedic hardware appears intac t. There is mild medial distraction of the lesser trochanter. Skin clips, subcutaneous gas, and soft tissue swelling overlying the left hip are expected postoperative changes. No new fracture is identif ied. The visualized left hemipelvis appears intact. A Lanza catheter is in place. IMPRESSION: Expected postoperative findings status post open reduction and internal fixation of the l eft femur. Near-anatomic alignment is restored. Electronically signed by: Angelito Nur M.D. 02/03/2020 12:10 PM
[2020-02-03] MEDS ORDERED: NALOXONE HCL 0.4 MG/1 ML VIAL/CARP IV PRN (12:20)
[2020-02-03] MEDS ORDERED: Nursing to Pharmacy Communication SCH (12:30)
[2020-02-03] MEDS: HYDROmorphone INJ 0.5 MG/0.5 ML SYR ONE ×3 (12:56→13:35)
[2020-02-03] MEDS: ATORVASTATIN 10 MG TAB PO SCH (13:19)
[2020-02-03] MEDS: PANTOprazole 40 MG TAB PO SCH (13:20)
[2020-02-03] MEDS: MAGNESIUM OXIDE 400 MG TAB PO SCH (13:20)
[2020-02-03] MEDS: METOPROLOL SUCC 25MG EXT REL TAB PO SCH (13:20)
[2020-02-03] MEDS: lisinopril 10 MG TAB PO SCH (13:21)
[2020-02-03] MEDS: TAMOXIFEN CITRATE 10 MG TABLET PO SCH (13:21)
--- NOTE | 2020-02-03 17:42 | Hospitalist Progress Note ---
Date of Service February 03, 2020 Assessment & Plan (1) Closed left hip fracture: Left hip fx : after losing balance and fall : appreciate input from Orthopedics s/p ORIF of left hip today ; POD #0 pt recovering well post op denies of any pain or discomfort no fever or chills cont post op management as per Ortho HTN: BP stable cont out pt meds TYPE 2 DM : insulin SSI CODE STATUS: full code DVT PROPHYLAXIS : per ortho post hip surgery protocol DISPOSITION : PT/OT eval requested return back to [facility] when medically stable Admission and Anticipated Discharge Date Admission Date: February 02, 2020 Subjective s/p left hip surgery today recovering well post op minimum pain /discomfort at surgical site no fever or chills offers no new complain Review of Systems Review of Systems: All systems reviewed & are unremarkable except as noted in HPI & below Constitutional: no fever, no chills and no fatigue Respiratory: + cough; no dyspnea Cardiovascular: no chest pain, no dyspnea, no orthopnea and no syncope Physical Exam Constitutional: WD/WN, vitals as above no acute distress Eyes: PERRL, conjunctivae normal, anicteric sclerae ENMT: external ear and nose normal, oropharynx normal Neck: trachea midline, no thyromegaly Respiratory: normal respiratory effort, lungs clear to auscultation Cardiovascular: RRR, no murmur, no edema Gastrointestinal (Abdomen): normal bowel sounds, soft, nontender, no hepatosplenomegaly Musculoskeletal: s/p left hip surgery Skin: no rashes, warm and dry Neurologic: PERRL, EOMI, accommodation nl, no face palsy, no dysarthria Psychiatric: A+Ox3, euthymic affect Results & Data Results & Data ([facility]) Vital Signs (Past 12 Hours) Vital Signs Temp Pulse Pulse Pulse Resp BP Pulse Ox 02/03/20 15:47 36.7 C 73 20 139/62 100 02/03/20 14:15 36.5 C 74 16 128/59 L 100 02/03/20 13:15 70 18 147/66 H 100 02/03/20 12:45 36.3 C L 74 18 126/63 98 02/03/20 12:15 36.4 C L 72 16 150/67 H 92 02/03/20 11:55 36.5 C 74 16 141/53 H 100 02/03/20 11:45 80 16 131/53 L 100 02/03/20 11:35 78 16 135/60 100 02/03/20 11:28 36.3 C L 98 H 16 124/51 L 99 02/03/20 06:49 36.6 C 105 H 20 177/72 H 94 (1) Closed left hip fracture Encounter type: initial encounter Qualified Code(s): S72.002A - Fracture of unspecified part of neck of left femur, initial encounter for closed fracture
[2020-02-03] MEDS: ceFAZolin 2000MG 2,000 MG/15 ML SYR IV SCH (18:21)
[2020-02-03] MEDS: QUEtiapine FUMARATE 25 MG TABLET PO SCH (20:47)
[2020-02-04] MEDS: ceFAZolin 2000MG 2,000 MG/15 ML SYR IV SCH ×2 (01:12→09:11)
[2020-02-04 06:25] LABS: Hematocrit (blood only) 22.2 % (37-47); Hemoglobin 7.3 g/dL (12.0-16.0); Mean Corpuscular Hgb Conc 32.9 g/dL (32-36); Mean Corpuscular Volume 91.4 fL (80-100); RDW Coefficient of Variation 16.6 % (11.5-14.5); RDW Standard Deviation 55.5 fL (36.4-46.3); Red Blood Count 2.43 M/uL (4.2-5.4); White Blood Count 2.73 K/uL (4.8-10.8)
[2020-02-04 06:32] LABS: Mean Platelet Volume 10.8 fL (7.4-10.4); Platelet Count 55 K/uL (130-400)
[2020-02-04 06:46] LABS: Eosinophils # (auto) 0.01 K/uL (0-0.5); Eosinophils % (auto) 0.4 %; Giant Platelets 1+; Lymphocytes # (auto) 0.68 K/uL (1.2-3.4); Lymphocytes % (auto) 24.9 %; Neutrophils # (auto) 1.74 K/uL (1.4-6.5); Neutrophils % (auto) 63.7 %; Ovalocytes 1+
--- NOTE | 2020-02-04 06:48 | Orthopedic Progress Note ---
Date of Service February 04, 2020 Assessment & Plan (1) Closed left hip fracture: POD #1 Status post left hip cephalomedullary nail -Ancef x24 -DVT prophylaxis: SCDs, teds, Xarelto daily -Toe-touch weightbearing left lower extremity -PT/OT when medically stable -Postoperative x-ray demonstrates a well aligned well fixed orthopedic implant, anatomic alignment of the fracture site, no new fracture or dislocation. Admission and Anticipated Discharge Date Admission Date: February 02, 2020 Supervising Physician Co-Signing Physician Notes Patient seen and examined, agree with above assessment and plan, eating breakfast, pain well controlled, no acute issues overnight. LLE NVSI +EHL/FHL/TA/GS SILT grossly, +2 DP pulse, compartments soft NT, dressing cdi. A/P S/P L hip CMN -ancef x24 -DVT ppx: SCDs, TEDs, Xarelto -TTWB LLE -PT/OT -am labs- as above, hgb 7.4, patient asymptomatic, defer transfusion to primary team Subjective POD #1 s/p Left Hip Cephelomedullary Nail denies chest pain, shortness of breath denies N/V Review of Systems Constitutional: as per Subjective / HPI Physical Exam Physical Exam: Vital Signs Temp 36.9 C 02/04/20 03:08 Pulse 83 02/04/20 03:08 Resp 18 02/04/20 03:08 BP 105/46 L 02/04/20 03:08 Pulse Ox 92 02/04/20 03:08 Intake & Output 02/03/20 02/03/20 02/04/20 06:59 18:59 06:59 Intake Total 3085.000 / 3235.00 0 150 / 3235.000 Output Total 600 / 1100 500 / 1100 Balance 2485.000 / 2135.00 0 -350 / 2135.000 Weight 69.7 kg 69.7 kg Intake: IV 1984.000 / 1984.00 0 Nss 1000ML 1,0 00 ml @ 100 mls/ 1984.000 / 1984.00 0 hr IV .Q10H SC H Rx#:[id number] IV Perioperative 1100 / 1100 Oral 150 / 150 Output: Urine 200 / 400 200 / 400 Estimated Blood Loss 75 / 75 Urine Amount (Ca theter) 325 / 625 300 / 625 Lanza/Indwelli ng 325 / 625 300 / 625 Other: Other Intake Simran rce sips of water afte r surgery. # Unmeasured Voi ds 1 Weight Measureme nt Method Built in [facility] Constitutional: WD/WN, vitals as above no acute distress Musculoskeletal: Left lower extremity: NVDI, +EHL/FHL/TA/GS SILT grossly, +2 DP pulse, compartments soft NT, dressing clean and dry. Results & Data ([facility]) Vital Signs (Past 12 Hours) Vital Signs Temp Pulse Resp BP Pulse Ox 02/04/20 03:08 36.9 C 83 18 105/46 L 92 02/03/20 23:33 95 02/03/20 23:32 37.1 C 85 18 107/62 89 L Laboratory Results Laboratory Results WBC 2.73 K/uL (4.8-10.8) L 02/04/20 06:12 RBC 2.43 M/uL (4.2-5.4) L 02/04/20 06:12 Hgb 7.3 g/dL (12.0-16.0) L 02/04/20 06:12 Hct 22.2 % (37-47) L 02/04/20 06:12 MCV 91.4 fL (80-100) 02/04/20 06:12 MCH 30.0 pg (25-34) 02/04/20 06:12 MCHC 32.9 g/dL (32-36) 02/04/20 06:12 RDW Std Deviation 55.5 fL (36.4-46.3) H 02/04/20 06:12 RDW Coeff of Davida 16.6 % (11.5-14.5) H 02/04/20 06:12 Plt Count 55 K/uL (130-400) L 02/04/20 06:12 MPV 10.8 fL (7.4-10.4) H 02/04/20 06:12 Immature Gran % (Auto) 0.0 % 02/04/20 06:12 Neut % (Auto) 63.7 % 02/04/20 06:12 Lymph % (Auto) 24.9 % 02/04/20 06:12 [place] % (Auto) 11.0 % 02/04/20 06:12 Eos % (Auto) 0.4 % 02/04/20 06:12 Baso % (Auto) 0.0 % 02/04/20 06:12 Neut # (Auto) 1.74 K/uL (1.4-6.5) 02/04/20 06:12 Lymph # (Auto) 0.68 K/uL (1.2-3.4) L 02/04/20 06:12 [place] # (Auto) 0.30 K/uL (0.11-0.59) 02/04/20 06:12 Eos # (Auto) 0.01 K/uL (0-0.5) 02/04/20 06:12 Baso # (Auto) 0.00 K/uL (0-0.2) 02/04/20 06:12 Immature Gran # (Auto) 0.00 K/uL (0.00-0.02) 02/04/20 06:12 Platelet Estimate Decreased (Normal) L 02/02/20 18:18 Giant Platelets 1+ 02/04/20 06:12 Ovalocytes 1+ 02/04/20 06:12 Echinocytes 1+ 02/02/20 18:18 PT 12.6 Seconds (9.0-12.0) H 02/02/20 18:18 INR 1.2 (0.9-1.1) H 02/02/20 18:18 APTT 23.7 Seconds (21.0-31.0) 02/02/20 18:18 PTT Ratio 0.8 02/02/20 18:18 Sodium 141 mmol/L (136-145) 02/03/20 05:32 Potassium 4.2 mmol/L (3.5-5.1) 02/03/20 05:32 Chloride 112 mmol/L (98-107) H 02/03/20 05:32 Carbon Dioxide 25 mmol/L (21-32) 02/03/20 05:32 Anion Gap 4.0 (3-11) 02/03/20 05:32 BUN 16 mg/dl (7-18) 02/03/20 05:32 Creatinine 0.98 mg/dl (0.6-1.2) 02/03/20 05:32 Est Cr Clr Drug Dosing 45.0 ml/min 02/03/20 05:32 Est GFR ( Amer) 65.9 02/03/20 05:32 Est GFR (Non-Af Amer) 56.8 02/03/20 05:32 BUN/Creatinine Ratio 16.2 (10-20) 02/03/20 05:32 Glucose 215 mg/dl (70-99) H 02/03/20 05:32 POC Glucose 205 mg/dl (70-99) H 02/03/20 20:32 Estimat Average Glucose 148 mg/dl 02/03/20 05:32 Hemoglobin A1c 6.8 % (4.5-5.6) H 02/03/20 05:32 Calcium 8.6 mg/dl (8.5-10.1) 02/03/20 05:32 Magnesium 1.7 mg/dl (1.8-2.4) L 02/03/20 05:32 Urine Color Yellow 02/02/20 19:30 Urine Appearance Clear (Clear) 02/02/20 19:30 Urine pH 7.0 (4.5-7.5) 02/02/20 19:30 Ur Specific Saxon 1.010 (1.000-1.030) 02/02/20 19:30 Urine Protein Negative (Negative) 02/02/20 19:30 Urine Glucose (UA) Negative (Negative) 02/02/20 19:30 Urine Ketones Negative (Negative) 02/02/20 19:30 Urine Blood Negative (Negative) 02/02/20 19:30 Urine Nitrite Negative (Negative) 02/02/20 19:30 Urine Bilirubin Negative (Negative) 02/02/20 19:30 Urine Urobilinogen Negative (Negative) 02/02/20 19:30 Ur Leukocyte Esterase Negative (Negative) 02/02/20 19:30 COVID-19 Eval Order Covid19 [facility] 02/03/20 Unknown Hepatitis C Ab Screen Neg (Neg) 02/02/20 20:10 SARS-CoV-2, RNA, NAAT NEGATIVE (NEGATIVE) 02/03/20 Unknown SARS-CoV-2 Ag (Rapid) Negative (Negative) 02/02/20 18:48 Blood Type O Negative 02/02/20 20:10 Antibody Screen NEGATIVE 02/02/20 20:10 Diagnostic Findings LEFT HIP 2 VIEWS CLINICAL HISTORY: Postoperative examination. FINDINGS: AP and crosstable lateral portable views of the left hip are compared to study dated 02/02/2020. The skeletal structures are osteopenic. Intertrochanteric and intramedullary nails transfix an intertrochanteric fracture of the left femur. Skin clips, subcutaneous gas, and soft tissue swelling overlying the left hip are expected postoperative changes. No new fracture is identified. The visualized left hemipelvis appears intact. A Lanza catheter is in place. IMPRESSION: Expected postoperative findings status post open reduction and internal fixation of the left femur. Near-anatomic alignment is restored. (1) Closed left hip fracture Encounter type: initial encounter Qualified Code(s): S72.002A - Fracture of unspecified part of neck of left femur, initial encounter for closed fracture
[2020-02-04 07:00] LABS: BUN Creatinine Ratio 16.1 (10-20); Calcium 7.9 mg/dl (8.5-10.1); Est GFR (African American) 53.7; Est GFR (Non-African American) 46.3; Potassium 3.9 mmol/L (3.5-5.1)
[2020-02-04] MEDS: TAMOXIFEN CITRATE 10 MG TABLET PO SCH (08:09)
[2020-02-04] MEDS: MAGNESIUM OXIDE 400 MG TAB PO SCH (08:09)
[2020-02-04] MEDS: ATORVASTATIN 10 MG TAB PO SCH (08:09)
[2020-02-04] MEDS: PANTOprazole 40 MG TAB PO SCH (08:09)
[2020-02-04] MEDS: RIVAROXABAN 10 MG TABLET PO SCH (08:09)
[2020-02-04] MEDS: lisinopril 10 MG TAB PO SCH (08:09)
[2020-02-04] MEDS: METOPROLOL SUCC 25MG EXT REL TAB PO SCH (08:09)
[2020-02-04] MEDS: ACETAMINOPHEN 325 MG TAB PO PRN ×2 (08:12→18:16)
[2020-02-04] MEDS: INSULIN ASPART 100 UNITS/ML 3 ML PEN SC SCH ×4 (09:08→20:45)
--- NOTE | 2020-02-04 15:44 | Hospitalist Progress Note ---
Date of Service February 04, 2020 Assessment & Plan (1) Closed left hip fracture: Left hip fx : after losing balance and fall : s/p ORIF of left hip ; POD #1 -Postoperative x-ray demonstrates a well aligned well fixed orthopedic implant, anatomic alignment of the fracture site pt recovering well post op denies of any pain or discomfort appreciate input from Orthopedics per Ortho team : -Toe-touch weightbearing left lower extremity -cont PT/OT Chronic Thrombocytopenia : due to chronic liver disease /Cirrhosis Acute blood loss anemia: due to hip fx /post op status ( roger/post op blood loss) repeat H&H in am transfuse for hb < 7 or symptoms CKD stage 3 : cr at [facility] HTN: BP stable cont out pt meds TYPE 2 DM : insulin SSI CODE STATUS: full code DVT PROPHYLAXIS : on SCD and TEds /Xarelto DISPOSITION : PT/OT eval requested return back to [facility] when medically stable Admission and Anticipated Discharge Date Admission Date: February 02, 2020 Subjective offers no new complain has been able to be OOB to chair no SOB , no fever or chills Physical Exam 2 Constitutional: WD/WN, vitals as above no acute distress Eyes: PERRL, conjunctivae normal, anicteric sclerae ENMT: external ear and nose normal, oropharynx normal Neck: trachea midline, no thyromegaly Respiratory: normal respiratory effort, lungs clear to auscultation Cardiovascular: RRR, no murmur, no edema Gastrointestinal (Abdomen): normal bowel sounds, soft, nontender, no hepatosplenomegaly Skin: no rashes, warm and dry Neurologic: PERRL, EOMI, accommodation nl, no face palsy, no dysarthria Psychiatric: A+Ox3, euthymic affect Results & Data Results & Data ([facility]) Vital Signs (Past 12 Hours) Vital Signs Temp Pulse Pulse Resp BP Pulse Ox 02/04/20 15:30 37.7 C H 100 H 18 127/64 92 02/04/20 07:21 37.6 C H 93 H 16 122/68 90 (1) Closed left hip fracture Encounter type: initial encounter Qualified Code(s): S72.002A - Fracture of unspecified part of neck of left femur, initial encounter for closed fracture
[2020-02-04] MEDS: QUEtiapine FUMARATE 25 MG TABLET PO SCH (20:40)
[2020-02-05 05:58] LABS: Hematocrit (blood only) 19.7 % (37-47); Hemoglobin 6.4 g/dL (12.0-16.0); Mean Corpuscular Hemoglobin 29.6 pg (25-34); Mean Corpuscular Hgb Conc 32.5 g/dL (32-36); Mean Corpuscular Volume 91.2 fL (80-100); Mean Platelet Volume 11.7 fL (7.4-10.4); Platelet Count 48 K/uL (130-400); RDW Coefficient of Variation 16.8 % (11.5-14.5); Red Blood Count 2.16 M/uL (4.2-5.4); White Blood Count 1.73 K/uL (4.8-10.8)
[2020-02-05] MEDS ORDERED: SODIUM CHLORIDE 0.9% 250 ML IV PRN (06:01)
--- NOTE | 2020-02-05 06:08 | Electrocardiogram Report ---
Test Reason : Blood Pressure : / mmHG Vent. Rate : 088 BPM Atrial Rate : 088 BPM P-R Int : 106 ms QRS Dur : 072 ms QT Int : 358 ms P-R-T Axes : 048 035 029 degrees QTc Int : 433 ms Sinus rhythm with sinus arrhythmia with short AR Cannot rule out Anterior infarct , age undetermined Abnormal ECG No previous ECGs available Confirmed by Sammy Alexandre ([id number]) on 02/05/2020 6:07:57 AM Referred By: REFERRED SELF Confirmed By:Sammy Alexandre
[2020-02-05 06:17] LABS: BUN Creatinine Ratio 19.1 (10-20); Calcium 7.7 mg/dl (8.5-10.1); Creatinine Clr Calc Pharmacy 39.7 ml/min; Est GFR (African American) 56.7; Est GFR (Non-African American) 48.9; Potassium 3.8 mmol/L (3.5-5.1)
[2020-02-05] MEDS ORDERED: ACETAMINOPHEN 325 MG TAB PO ONE (07:00)
--- NOTE | 2020-02-05 07:50 | Communication Note ---
Date of Service: February 05, 2020 AM LABS REVIEWED : hb drop noted 6.4 ,acute blood loss anemia due to post hip surgery no active bleeding episode 2 units of PRBC transfusion ordered by president consumer [employer] Hospitalist already repeat H&H in afternoon pt will need inpatient rehab -prefers to go to [facility] CM updated , pt will need arrangements for wheel chair van ride . Paula Petersen MD
[2020-02-05] MEDS: MAGNESIUM OXIDE 400 MG TAB PO SCH (08:41)
[2020-02-05] MEDS: METOPROLOL SUCC 25MG EXT REL TAB PO SCH (08:41)
[2020-02-05] MEDS: INSULIN ASPART 100 UNITS/ML 3 ML PEN SC SCH ×4 (08:41→21:15)
[2020-02-05] MEDS: PANTOprazole 40 MG TAB PO SCH (08:41)
[2020-02-05] MEDS: ATORVASTATIN 10 MG TAB PO SCH (08:41)
[2020-02-05] MEDS: RIVAROXABAN 10 MG TABLET PO SCH (08:41)
[2020-02-05] MEDS: TAMOXIFEN CITRATE 10 MG TABLET PO SCH (08:41)
[2020-02-05] MEDS: lisinopril 10 MG TAB PO SCH (08:41)
--- NOTE | 2020-02-05 09:34 | Orthopedic Progress Note ---
Date of Service February 05, 2020 Assessment & Plan (1) Closed left hip fracture: POD #1 Status post left hip cephalomedullary nail -Ancef x24 -DVT prophylaxis: SCDs, teds, Xarelto daily -Toe-touch weightbearing left lower extremity -PT/OT when medically stable -am labs, as above, hgb 6.4, receiving tranfusion. -Postoperative x-ray demonstrates a well aligned well fixed orthopedic implant, anatomic alignment of the fracture site, no new fracture or dislocation. Admission and Anticipated Discharge Date Admission Date: February 02, 2020 Subjective Post Operative Progress Note Patient seen sitting up in bed, comfortable, denies complaints, pain well controlled, no acute issues. Patient receiving blood. Review of Systems Review of Systems: All systems reviewed & are unremarkable except as noted in HPI & below Constitutional: as per Subjective / HPI Physical Exam Physical Exam: LLE NVSI +EHL/FHL/TA/GS SILT grossly, +2 DP pulse, compartments soft NT, dressing cdi. Constitutional: WD/WN, vitals as above Results & Data ([facility]) Vital Signs (Past 12 Hours) Vital Signs Temp Pulse Pulse Resp BP BP Pulse Ox 02/05/20 08:45 37.4 C 98 H 18 129/64 92 02/05/20 08:15 37.3 C 95 H 18 131/69 93 02/05/20 08:00 37.0 C 94 H 16 155/75 H 92 02/05/20 07:49 37 C 102 H 18 152/67 H 02/05/20 07:27 37.3 C 98 H 16 125/56 L 92 02/04/20 23:13 36.8 C 92 H 18 107/54 L 91 Laboratory Results 02/05/20 02/05/20 02/05/20 Range/Units 08:16 05:37 05:37 WBC 1.73 L (4.8-10.8) K/uL RBC 2.16 L (4.2-5.4) M/uL Hgb 6.4 L* (12.0-16.0) g/dL Hct 19.7 L* (37-47) % MCV 91.2 (80-100) fL MCH 29.6 (25-34) pg MCHC 32.5 (32-36) g/dL RDW Std Deviation 56.0 H (36.4-46.3) fL RDW Coeff of Davida 16.8 H (11.5-14.5) % Plt Count 48 L (130-400) K/uL MPV 11.7 H (7.4-10.4) fL Sodium (136-145) mmol/L Potassium (3.5-5.1) mmol/L Chloride (98-107) mmol/L Carbon Dioxide (21-32) mmol/L Anion Gap (3-11) BUN (7-18) mg/dl Creatinine (0.6-1.2) mg/dl Est Cr Clr Drug Dosing ml/min Est GFR ( Amer) Est GFR (Non-Af Amer) BUN/Creatinine Ratio (10-20) Glucose (70-99) mg/dl POC Glucose 195 H (70-99) mg/dl Calcium (8.5-10.1) mg/dl Blood Type Blood Type Recheck O Negative Antibody Screen Crossmatch 02/05/20 02/04/20 02/04/20 Range/Units 05:37 20:30 16:59 WBC (4.8-10.8) K/uL RBC (4.2-5.4) M/uL Hgb (12.0-16.0) g/dL Hct (37-47) % MCV (80-100) fL MCH (25-34) pg MCHC (32-36) g/dL RDW Std Deviation (36.4-46.3) fL RDW Coeff of Davida (11.5-14.5) % Plt Count (130-400) K/uL MPV (7.4-10.4) fL Sodium 141 (136-145) mmol/L Potassium 3.8 (3.5-5.1) mmol/L Chloride 111 H (98-107) mmol/L Carbon Dioxide 24 (21-32) mmol/L Anion Gap 6.0 (3-11) BUN 21 H (7-18) mg/dl Creatinine 1.11 (0.6-1.2) mg/dl Est Cr Clr Drug Dosing 39.7 ml/min Est GFR ( Amer) 56.7 Est GFR (Non-Af Amer) 48.9 BUN/Creatinine Ratio 19.1 (10-20) Glucose 159 H (70-99) mg/dl POC Glucose 198 H 230 H (70-99) mg/dl Calcium 7.7 L (8.5-10.1) mg/dl Blood Type Blood Type Recheck Antibody Screen Crossmatch 02/04/20 02/02/20 Range/Units 11:48 20:10 WBC (4.8-10.8) K/uL RBC (4.2-5.4) M/uL Hgb (12.0-16.0) g/dL Hct (37-47) % MCV (80-100) fL MCH (25-34) pg MCHC (32-36) g/dL RDW Std Deviation (36.4-46.3) fL RDW Coeff of Davida (11.5-14.5) % Plt Count (130-400) K/uL MPV (7.4-10.4) fL Sodium (136-145) mmol/L Potassium (3.5-5.1) mmol/L Chloride (98-107) mmol/L Carbon Dioxide (21-32) mmol/L Anion Gap (3-11) BUN (7-18) mg/dl Creatinine (0.6-1.2) mg/dl Est Cr Clr Drug Dosing ml/min Est GFR ( Amer) Est GFR (Non-Af Amer) BUN/Creatinine Ratio (10-20) Glucose (70-99) mg/dl POC Glucose 207 H (70-99) mg/dl Calcium (8.5-10.1) mg/dl Blood Type O Negative Blood Type Recheck Antibody Screen NEGATIVE Crossmatch See Detail (1) Closed left hip fracture Encounter type: initial encounter Qualified Code(s): S72.002A - Fracture of unspecified part of neck of left femur, initial encounter for closed fracture
[2020-02-05] MEDS ORDERED: FUROSEMIDE 20 MG in SYRINGE 0 ML IV ONE (10:01)
[2020-02-05 16:24] LABS: Hematocrit (blood only) 31.6 % (37-47); Hemoglobin 10.5 g/dL (12.0-16.0)
[2020-02-05] MEDS: ACETAMINOPHEN 325 MG TAB PO PRN (17:38)
--- NOTE | 2020-02-05 18:02 | Hospitalist Progress Note ---
Date of Service February 05, 2020 Assessment & Plan (1) Closed left hip fracture: Left hip fx : after losing balance and fall : s/p ORIF of left hip ; POD #2 -Postoperative x-ray demonstrates a well aligned well fixed orthopedic implant, anatomic alignment of the fracture site pt recovering well post op denies of any pain or discomfort appreciate input from Orthopedics per Ortho team : -Toe-touch weightbearing left lower extremity -cont PT/OT Chronic Thrombocytopenia : due to chronic liver disease /Cirrhosis Acute blood loss anemia: hb drop noted 6.4 ,acute blood loss anemia due to post hip surgery no active bleeding episode 2 units of PRBC transfusion ordered repeat H&H in afternoon hb > 10 CKD stage 3 : cr at [facility] HTN: BP stable cont out pt meds TYPE 2 DM : insulin SSI CODE STATUS: full code DVT PROPHYLAXIS : on SCD and TEds /Xarelto DISPOSITION : pt will need inpatient rehab -prefers to go to [facility] CM updated , pt will need arrangements for wheel chair van ride . plan to dc to [facility] tomorrow 02/06/20 Admission and Anticipated Discharge Date Admission Date: February 02, 2020 Subjective offers no new complain no SOB , no fever or chills received 2 u nits of PRBC this AM repeat Hb improved to 10 no complain of dizzy spell , lightheadedness , no chest pain or [place]ASM[place]EN Review of Systems Review of Systems: All systems reviewed & are unremarkable except as noted in HPI & below Physical Exam Constitutional: WD/WN, vitals as above no acute distress Eyes: PERRL, conjunctivae normal, anicteric sclerae ENMT: external ear and nose normal, oropharynx normal Neck: trachea midline, no thyromegaly Respiratory: normal respiratory effort, lungs clear to auscultation Cardiovascular: RRR, no murmur, no edema Gastrointestinal (Abdomen): normal bowel sounds, soft, nontender, no hepatosplenomegaly Skin: no rashes, warm and dry Neurologic: PERRL, EOMI, accommodation nl, no face palsy, no dysarthria Psychiatric: A+Ox3, euthymic affect Results & Data Results & Data ([facility]) Vital Signs (Past 12 Hours) Vital Signs Temp Pulse Pulse Resp BP BP Pulse Ox 02/05/20 15:57 37 C 97 H 16 135/74 95 02/05/20 14:30 36.8 C 94 H 16 154/75 H 95 02/05/20 13:15 36.6 C 94 H 18 133/73 95 02/05/20 12:45 36.6 C 93 H 17 145/74 H 94 02/05/20 12:15 37.1 C 94 H 17 152/84 H 93 02/05/20 12:00 36.9 C 95 H 18 139/78 93 02/05/20 11:42 36.9 C 93 H 18 138/76 02/05/20 11:30 36.9 C 88 16 165/83 H 95 02/05/20 10:15 37.1 C 87 20 117/52 L 93 02/05/20 09:15 37.2 C 88 18 130/72 93 02/05/20 08:45 37.4 C 98 H 18 129/64 92 02/05/20 08:15 37.3 C 95 H 18 131/69 93 02/05/20 08:00 37.0 C 94 H 16 155/75 H 92 02/05/20 07:49 37 C 102 H 18 152/67 H 02/05/20 07:27 37.3 C 98 H 16 125/56 L 92 (1) Closed left hip fracture Encounter type: initial encounter Qualified Code(s): S72.002A - Fracture of unspecified part of neck of left femur, initial encounter for closed fracture
[2020-02-05] MEDS: QUEtiapine FUMARATE 25 MG TABLET PO SCH (21:15)
[2020-02-06 01:06] VITALS: O2SAT 94
[2020-02-06 06:30] LABS: Hematocrit (blood only) 28.4 % (37-47); Hemoglobin 9.2 g/dL (12.0-16.0)
[2020-02-06 07:52] VITALS: TEMP 99
--- NOTE | 2020-02-06 08:43 | Orthopedic Progress Note ---
Date of Service February 06, 2020 Assessment & Plan (1) Closed left hip fracture: POD #3 Status post left hip cephalomedullary nail -Ancef x24 -DVT prophylaxis: SCDs, teds, Xarelto daily -Toe-touch weightbearing left lower extremity -PT/OT when medically stable -am labs, as above, hgb 9.2, s/p transfusion on 02/05/20 -Postoperative x-ray demonstrates a well aligned well fixed orthopedic implant, anatomic alignment of the fracture site, no new fracture or dislocation. Orthopedics will sign off, please call with questions, DC instructions placed in product management consultant section. Admission and Anticipated Discharge Date Admission Date: February 02, 2020 Subjective Post Operative Progress Note Patient seen sitting up in bed, comfortable, denies complaints, pain well controlled, no acute issues. Denies F/C/N/V/SOB/CP. Review of Systems Review of Systems: All systems reviewed & are unremarkable except as noted in HPI & below Constitutional: as per Subjective / HPI Physical Exam Physical Exam: LLE NVSI +EHL/FHL/TA/GS SILT grossly, +2 DP pulse, compartments soft NT, dressing cdi. Constitutional: WD/WN, vitals as above Results & Data ([place]) Vital Signs (Past 12 Hours) Vital Signs Temp Pulse Resp BP BP Pulse Ox 02/06/20 07:30 37.2 C 95 H 18 157/74 H 94 02/05/20 23:33 36.7 C 96 H 16 133/76 94 Laboratory Results 02/06/20 02/06/20 02/05/20 Range/Units 08:09 06:15 20:34 Hgb 9.2 L (12.0-16.0) g/dL Hct 28.4 L (37-47) % POC Glucose 183 H 228 H (70-99) mg/dl Blood Type Antibody Screen Crossmatch 02/05/20 02/05/20 02/05/20 Range/Units 17:22 15:38 12:06 Hgb 10.5 L D (12.0-16.0) g/dL Hct 31.6 L (37-47) % POC Glucose 230 H 203 H (70-99) mg/dl Blood Type Antibody Screen Crossmatch 02/02/20 Range/Units 20:10 Hgb (12.0-16.0) g/dL Hct (37-47) % POC Glucose (70-99) mg/dl Blood Type O Negative Antibody Screen NEGATIVE Crossmatch See Detail (1) Closed left hip fracture Encounter type: initial encounter Qualified Code(s): S72.002A - Fracture of unspecified part of neck of left femur, initial encounter for closed fracture
[2020-02-06] MEDS: lisinopril 10 MG TAB PO SCH (09:22)
[2020-02-06] MEDS: METOPROLOL SUCC 25MG EXT REL TAB PO SCH (09:22)
[2020-02-06] MEDS: INSULIN ASPART 100 UNITS/ML 3 ML PEN SC SCH ×2 (09:22→13:07)
[2020-02-06] MEDS: ATORVASTATIN 10 MG TAB PO SCH (09:22)
[2020-02-06] MEDS: RIVAROXABAN 10 MG TABLET PO SCH (09:22)
[2020-02-06] MEDS: PANTOprazole 40 MG TAB PO SCH (09:22)
[2020-02-06] MEDS: TAMOXIFEN CITRATE 10 MG TABLET PO SCH (09:23)
[2020-02-06] MEDS: MAGNESIUM OXIDE 400 MG TAB PO SCH (09:23)
[2020-02-06 12:20] VITALS: BP 133/76; PULSE 74
--- NOTE | 2020-02-06 12:24 | Communication Note ---
Date of Service: February 06, 2020 ATTENDING NOTE : HB stable > 9 plan to discharge today to [facility] Rehab if bed available Paula Petersen MD
--- NOTE | 2020-02-06 14:33 | Discharge Summary ---
Date of Service February 06, 2020 Principal Diagnosis FALL LEFT HIP FRACTURE S/P SURGER Discharge Exam Constitutional WD/WN, vitals as above no acute distress Eyes PERRL, conjunctivae normal, anicteric sclerae ENMT external ear and nose normal, oropharynx normal Neck trachea midline, no thyromegaly Respiratory normal respiratory effort, lungs clear to auscultation Cardiovascular RRR, no murmur, no edema Gastrointestinal (Abdomen) normal bowel sounds, soft, nontender, no hepatosplenomegaly Skin no rashes, warm and dry Neurologic PERRL, EOMI, accommodation nl, no face palsy, no dysarthria Psychiatric A+Ox3, euthymic affect Discharge Data Allergies Allergy/AdvReac Type Severity Reaction Status Date / Time Sulfa (Sulfonamide Allergy Unknown RASH Verified 02/02/20 20:40 Antibiotics) Consultations 02/02/20 17:55 Consult Case Management - Discharge Planning Routine 02/02/20 19:09 Consult Orthopedic Surgery Stat ED Decision to Admit Stat 02/02/20 22:02 Consult Case Management - Discharge Planning Routine 02/03/20 12:20 Consult Case Management - Discharge Planning Routine Procedures Performed Operation Date: 02/03/20 09:30 Actual Procedures p Left Hip Cephelomedullary Nail(Left) - Hua Siddiqi DO Ordered Studies 02/03/20 09:00 FL fluoroscopy <1hr Routine FL hip LT 2-3V Routine Hospital Course (1) Closed left hip fracture: Left hip fx : after losing balance and fall : s/p ORIF of left hip ; POD #3 -Postoperative x-ray demonstrates a well aligned well fixed orthopedic implant, anatomic alignment of the fracture site pt recovering well post op denies of any pain or discomfort appreciate input from Orthopedics per Ortho team : -Toe-touch weightbearing left lower extremity -cont PT/OT Chronic Thrombocytopenia : due to chronic liver disease /Cirrhosis Acute blood loss anemia: hb stable after PRBC transfusion CKD stage 3 : cr at [facility] HTN: BP stable cont out pt meds TYPE 2 DM : insulin SSI CODE STATUS: full code DVT PROPHYLAXIS : on SCD and TEds /Xarelto DISPOSITION : pt is transferred to [facility] today Total Time Total Time Spent Total Time Spent (In Minutes): approx 30 mins Total Time Includes: Discharge Planning and Medication Reconciliation Discharge Plan Discharge Items Patient Disposition: Transfer Inpatient Rehab Fac Reason For Visit: FALL Discharge Diagnosis: FALL LEFT HIP FRACTURE S/P SURGERY Activity: Per Instructions section Weightbearing: Left toe touch Weightbearing Comment: Toe-touch weightbearing left lower extremity Non-emergency contact: Primary Care Provider Call non-emergency contact if: you have any medication questions Follow-up/Referrals: Lucy Bonilla DO [Primary Care Provider] - (Hospital follow up in a week ) Hua Siddiqi DO [Physician] - (Orthopedic follow up in 1-2 weeks ) Diet: Heart Healthy Addtl Attending Provider Instructions: [facility] DISCHARGE INSTRUCTIONS: HIP FRACTURE SELF CARE INSTRUCTIONS: A. You are to ambulate with a walker or crutches for approximately 6 weeks. B. You are TOE TOUCH WEIGHT BEARING on your operative lower extremity for at least 6 weeks. C. Wear low heeled shoes with non-slip soles D. Be sure that your floors are free of things that could trip you throw rugs, electrical cords, and small objects. Avoid wet and waxed floors, especially with crutches/walker/cane. E. Try to walk several times a day with rest periods between. F. You may shower 48 hours after surgery and get the incision area wet, but DO NOT soak or submerge incision area in water. (No baths, swimming pools, hot tubs) G. You may have a large, band-aid like dressing over your incision (Aquacel). This will remain on your incision for 7 days, and then can be removed. You CAN shower with this on. If incision is leaking through the dressing, please call the office . H. Do NOT apply soap or any ointment/lotions directly over incision. I. You may use ice as needed to operative site. SPECIAL CARE INSTRUCTIONS: VERY IMPORTANT TO READ AND REVIEW A. You may be at risk for phlebitis or blood clots. a. Wear surgical stockings (BARB hose) for 2 weeks after surgery to improve circulation and reduce swelling. b. Take Xarelto 10mg daily for 6 weeks or as directed. This is your blood thinner. c. If you are on Coumadin- you will have daily/weekly blood work to monitor your levels. This will be done by either your family physician/level vial inspector and tester (if you are on Coumadin chronically) versus your orthopedic surgeon. Expect a phone call the day of or the day after your blood work is drawn to adjust your dose accordingly. B. There are a few signs you need to watch for after you are home. Call [facility] at [phone] if you experience any of the following: a. If you have a temperature of 101 degrees or higher. b. Sudden increase in pain in your hip not relieved by rest or pain medication. c. Any fluid or drainage from the incision; redness of the incision. d. Shortness of breath or chest pain. B. Please call [facility] at [phone] if you have any questions or concerns about your operation or recovery. C. Call your physician if: a. Temperature is greater than 101 degrees (F). b. Pain is not relieved by prescribed pain medications. c. Increase drainage or redness from incision. d. Unanswered questions or concerns. D. Pain Medication: a. You will be prescribed pain medication upon discharge that should last till your first post-operative appointment. b. If you experience nausea and/or skin rash, discontinue this medication and contact our office for an alternative medication. c. Caution- narcotic pain medication can cause constipation. FOLLOW UP VISIT: Please call [facility] at [phone] to schedule a follow up appointment 10-14 days from the date of your surgery date. Pending Studies at Discharge: No Stand-Alone Forms: [facility] Skilled Items Patient informed of condition?: Yes DNR: No Discharge Level of Care: Acute rehab Communicable Disease: No Discharge Prognosis: Stable Lines: None Urinary Catheter: No Medications and DC Order Prescriptions: New Xarelto 10 mg Tablet 10 mg PO DAILY 42 Days Qty: 42 RF: 0 Continued quetiapine [Seroquel] 25 mg tablet 25 mg PO HS RF: 0 acetaminophen [Tylenol] 325 mg Tablet 650 mg PO QID PRN (Reason: Pain) RF: 0 atorvastatin [Lipitor] 10 mg tablet 10 mg PO DAILY RF: 0 glipizide [Glucotrol XL] 10 mg tablet extended release 24hr 10 mg PO UD RF: 0 alendronate [Fosamax] 70 mg tablet 70 mg PO WK RF: 0 lisinopril 10 mg tablet 10 mg PO DAILY RF: 0 omeprazole 20 mg capsule,delayed release(DR/EC) 20 mg PO DAILY RF: 0 metoprolol succinate [Toprol XL] 25 mg tablet extended release 24 hr 25 mg PO DAILY RF: 0 tamoxifen 20 mg tablet 20 mg PO DAILY RF: 0 lactulose [Enulose] 10 gram/15 mL solution 30 ml PO DAILY PRN (Reason: Constipation) RF: 0 magnesium oxide 400 mg magnesium Tablet 400 mg PO DAILY RF: 0 Discharge Orders: Discharge Order (Routine); Ordered 02/06/20 Ordered By: Paula Mckeon/Other Patient Handouts: Managing Type 2 Diabetes Admission Data Admit Date/Time: 02/02/20 20:24 Attending Provider: Paula Petersen Admit Provider: Clifton Luciano Primary Care Provider: Lucy Bonilla Other Providers: Hua Siddiqi ; Clifton Luciano ; [facility] Other Interventions: Discharge Summary Assessment (RN) Last Done: 02/06/20 12:18
--- NOTE | 2020-02-08 12:14 | Coding Query ---
To promote full compliance with coding requirements relating to patient care, physician participation is requested in all cases of enamel dipper uncertainty. Please assist us with the question(s) below: Coding Question(s): It was noted throughout the record that the patient has/is suspected to have osteoporosis. According to coding guidelines "a code for osteoporotic fracture, and not a traumatic fracture, should be used for any patient with known osteoporosis who suffers a fracture, even if the patient had a minor fall or trauma, if that fall or trauma would not usually break a normal, healthy bone." Please indicate below the type of fracture: Physician's Response(s): (x ) Osteoporotic fracture of Left Hip ( ) Traumatic fracture of Left Hip ( ) Other, please specify ( ) Unable to be determined MTDD
[2020-02-09] MEDS ORDERED: ALENDRONATE SODIUM 70 MG TAB PO SCH (06:30)
== END 2020-02-06 14:28 | DRG 481 ==
LOC: ED 17:46 → 3N 20:24

== ENCOUNTER 2020-07-01 08:35 | Inpatient (IN) ==
--- NOTE | 2020-07-01 09:05 | Emergency Department Note ---
Impression & Plan Hypoxia, Cirrhosis, Pleural effusion, Diarrhea ED Provider Note NAME: MANINDER ALVAREZ AGE: 75 SEX: F : 1945 ARRIVES VIA: Walk-In INFORMANT: Patient, daughter ED PROVIDER(S): Breezy Sunshine DO CHIEF COMPLAINT: Diarrhea and shortness of breath HPI: Patient is a 75-year-old female who presents the ER for shortness of breath. She has a past medical history of CVA, pancytopenia, breast cancer, hypertension, and diabetes as well as cirrhosis. She notes that the shortness of breath has been getting worse since April. She has surgery on her left lower extremity and has been fairly immobile since then. She admits to an achy belly with persistent diarrhea that has been present for the past 6 weeks. Denies any dysuria urgency or frequency. No chest pain. No cough or runny nose. No loss of taste or smell. She denies any blood thinners. She was seen at [facility] as an outpatient had an ultrasound of the liver and the questioned clot. ROS: See above HPI for pertinent positives & negatives. A total of 10 systems reviewed and were otherwise negative. PAST MEDICAL HISTORY:See Below PAST SURGICAL HISTORY:See Below FAMILY HISTORY:See Below SOCIAL HISTORY:See Below HOME MEDICATIONS:See Below ALLERGIES:See Below VITALS:See Below PHYSICAL EXAMINATION: GENERAL: Sitting up in bed, alert, ill-appearing, dyspneic with exertion on nasal cannula EYE EXAM: normal conjunctiva. PERRL and EOM's grossly intact. OROPHARYNX: no exudate, no erythema, lips, buccal mucosa, and tongue normal and mucous membranes are moist NECK: supple, no nuchal rigidity, no adenopathy, non-tender LUNGS: Diminished bilaterally worse at the right base. Normal chest wall m echanics HEART: no murmurs, S1 normal and S2 normal ABDOMEN: abdomen soft, non-tender, normo-active bowel sounds, no masses, no rebound or guarding. UPPER EXTREMITIES: upper extremities are grossly normal. LOWER EXTREMITIES: Pitting edema bilaterally. Gastric with bilateral NEURO EXAM: Normal sensorium, cranial nerves II-XII grossly intact, normal speech, no gross weakness of arms, no gross weakness of legs. MEDICAL DECISION MAKING: Patient is a 75-year-old female who presents the ER for the above-stated complaint. She is also found to be short of breath. She was hypoxic at 68% with minimal exertion. She is placed on nasal cannula and pulse ox came up with rest and nasal cannula. Labs show a pancytopenia with a white count of two hemoglobin of 11 and platelets of 53. BMP with slightly elevated chloride. LFTs were unremarkable as well as bilirubin. Troponin was negative. Lipase unremarkable. Covid was negative. Chest x-ray with large pleural effusions. CT of the chest and belly was obtained. CT of the belly showed portal venous thrombosis within the right and left hepatic vein as well as the splenic and mesenteric. We will hold on anticoagulation due to the large pleural effusions and after discussion with pulmonology they will drain at bedside. Discussed with hospitalist and they will admit for further work-up. Main comfortable on nasal cannula while in the ER. Triage Nursing notes reviewed. Limited review of prior medical records performed Vital Signs: reviewed and remarkable for hypoxic Differential diagnosis: Differential diagnoses includes but is not limited to pneumonia, bronchitis, COPD/Asthma exacerbation, pneumothorax, pulmonary embolism, congestive heart failure, acute coronary syndrome ER treatment provided: See below Diagnostics interpreted by me: ECG: Sinus rhythm rate 96 Normal axis No PVCs QTC 394 T wave inversion in the inferior leads Cardiac Monitoring: An order was placed for continuous cardiac monitoring. The monitor shows a rate of 92 with sinus rhythm. Laboratory studies: As stated above and show below. Imaging studies: CT abdomen pelvis and chest show large pleural effusion with clot in the portal system. Consultation(s): Discussed with the hospitalist as stated above Discussed with Dr. Hoyos from pulmonology who will evaluate the patient bedside Procedures: none Critical Care: I have personally spent 40 minutes of critical care time in the direct management of this patient. This includes bedside care, interpretation of diagnostic studies, and testing, discussion with consultants, patient, and f amily members, and other required patient management activities. This 40 minutes is in excess of all separately billable procedures. Past Med/Surg History Medical History Breast cancer Cirrhosis CKD (chronic kidney disease) CVA (cerebral vascular accident) Diabetes mellitus Esophageal 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 HTN (hypertension) PAD (peripheral artery disease) Pancytopenia Peripheral neuropathy Surgical History History of esophagogastroduodenoscopy (EGD) History of partial mastectomy of right breast Hx of cholecystectomy Social History Smoking Status: Never smoker Hx Alcohol Use: No Hx Substance Use: No Preferred Language: Wolof Communication Ability: Effective Cardiopulmonary Technician And Eeg Tech Required: No Beliefs That Will Affect Care: None Current Living Situation: Alone Feels Safe at Home: Yes Assistive Devices: Walker Allergies Allergies Allergy/AdvReac Type Severity Reaction Status Date / Time Sulfa (Sulfonamide Allergy Unknown RASH Verified 07/01/20 10:29 Antibiotics) Home Meds Home Medications Medication Instructions Recorded Confirmed acetaminophen [Tylenol] 650 mg PO QID PRN 02/02/20 07/01/20 alendronate [Fosamax] 70 mg PO WK 02/02/20 07/01/20 atorvastatin [Lipitor] 10 mg PO DAILY 02/02/20 07/01/20 glipizide [Glucotrol XL] 10 mg PO DAILY 02/02/20 07/01/20 lisinopril 10 mg PO DAILY 02/02/20 07/01/20 magnesium oxide 400 mg PO DAILY 02/02/20 07/01/20 metoprolol succinate [Toprol XL] 25 mg PO DAILY 02/02/20 07/01/20 omeprazole 20 mg PO DAILY 02/02/20 07/01/20 tamoxifen 20 mg PO DAILY 02/02/20 07/01/20 cholecalciferol (vitamin D3) 50 mcg PO Q2D 07/01/20 07/01/20 [Vitamin D3] quetiapine 50 mg PO HS 07/01/20 07/01/20 Results & Data (ED) Vital Signs Vital Signs - 24 hr 07/01/20 08:41 07/01/20 08:57 07/01/20 08:58 Temperature 36.7 C Temperature Source Temporal Artery Scan Pulse Rate 108 H 94 H Pulse Rate [Right Finger] 95 H Pulse Rate from SpO2 Sensor 95 H Pulse Rhythm Regular Pulse Strength Normal Respiratory Rate 20 24 23 Respiratory Effort / Characteristics Non-Labored Spontaneous Non-Labored Respiratory Depth Normal Normal Respiratory Pattern Regular Blood Pressure 168/73 H Blood Pressure [Left Arm] 140/76 Blood Pressure Mean 104 Blood Pressure Mean [Left Arm] 97 Blood Pressure Position Sitting Blood Pressure Position [Left Arm] Sitting Pulse Oximetry 91 99 99 Oxygen Delivery Method Room Air Nasal Cannula Oxygen Flow Rate 2 Sepsis Recent Fever Within 48 Hours No Sepsis New/Unexplained Change in Mental Status No Sepsis Action Taken by Nursing No Action Required 07/01/20 08:59 07/01/20 09:01 07/01/20 09:10 Temperature Temperature Source Pulse Rate 101 H 101 H 98 H Pulse Rate [Right Finger] Pulse Rate from SpO2 Sensor 100 H 100 H 97 H Pulse Rhythm Pulse Strength Respiratory Rate 24 25 H 22 Respiratory Effort / Characteristics Respiratory Depth Respiratory Pattern Blood Pressure 140/76 Blood Pressure [Left Arm] Blood Pressure Mean 97 Blood Pressure Mean [Left Arm] Blood Pressure Position Blood Pressure Position [Left Arm] Pulse Oximetry 99 99 100 Oxygen Delivery Method Oxygen Flow Rate Sepsis Recent Fever Within 48 Hours Sepsis New/Unexplained Change in Mental Status Sepsis Action Taken by Nursing 07/01/20 09:20 07/01/20 09:26 07/01/20 09:30 Temperature Temperature Source Pulse Rate 102 H 97 H 99 H Pulse Rate [Right Finger] Pulse Rate from SpO2 Sensor 102 H 100 H Pulse Rhythm Pulse Strength Respiratory Rate 29 H 22 26 H Respiratory Effort / Characteristics Respiratory Depth Respiratory Pattern Blood Pressure Blood Pressure [Left Arm] Blood Pressure Mean Blood Pressure Mean [Left Arm] Blood Pressure Position Blood Pressure Position [Left Arm] Pulse Oximetry 100 99 100 Oxygen Delivery Method Nasal Cannula Oxygen Flow Rate 2 Sepsis Recent Fever Within 48 Hours Sepsis New/Unexplained Change in Mental Status Sepsis Action Taken by Nursing 07/01/20 09:47 07/01/20 09:48 07/01/20 09:50 Temperature Temperature Source Pulse Rate 105 H 104 H 101 H Pulse Rate [Right Finger] Pulse Rate from SpO2 Sensor 106 H 103 H 102 H Pulse Rhythm Pulse Strength Respiratory Rate 21 21 24 Respiratory Effort / Characteristics Respiratory Depth Respiratory Pattern Blood Pressure 178/67 H Blood Pressure [Left Arm] Blood Pressure Mean 104 Blood Pressure Mean [Left Arm] Blood Pressure Position Blood Pressure Position [Left Arm] Pulse Oximetry 85 L 98 99 Oxygen Delivery Method Oxygen Flow Rate Sepsis Recent Fever Within 48 Hours Sepsis New/Unexplained Change in Mental Status Sepsis Action Taken by Nursing 07/01/20 10:00 07/01/20 10:10 07/01/20 10:20 Temperature Temperature Source Pulse Rate 100 H 96 H 97 H Pulse Rate [Right Finger] Pulse Rate from SpO2 Sensor 100 H 96 H 103 H Pulse Rhythm Pulse Strength Respiratory Rate 33 H 32 H 30 H Respiratory Effort / Characteristics Respiratory Depth Respiratory Pattern Blood Pressure 160/81 H Blood Pressure [Left Arm] Blood Pressure Mean 107 Blood Pressure Mean [Left Arm] Blood Pressure Position Blood Pressure Position [Left Arm] Pulse Oximetry 100 100 100 Oxygen Delivery Method Oxygen Flow Rate Sepsis Recent Fever Within 48 Hours Sepsis New/Unexplained Change in Mental Status Sepsis Action Taken by Nursing 07/01/20 10:34 07/01/20 10:36 07/01/20 10:40 Temperature Temperature Source Pulse Rate 109 H 101 H Pulse Rate [Right Finger] 98 H Pulse Rate from SpO2 Sensor 104 H 94 H Pulse Rhythm Pulse Strength Respiratory Rate 20 31 H 31 H Respiratory Effort / Characteristics Labored Respiratory Depth Respiratory Pattern Blood Pressure Blood Pressure [Left Arm] 160/81 H Blood Pressure Mean Blood Pressure Mean [Left Arm] 107 Blood Pressure Position Blood Pressure Position [Left Arm] Sitting Pulse Oximetry 97 100 97 Oxygen Delivery Method Nasal Cannula Oxygen Flow Rate 2 Sepsis Recent Fever Within 48 Hours Sepsis New/Unexplained Change in Mental Status Sepsis Action Taken by Nursing 07/01/20 12:00 Temperature Temperature Source Pulse Rate Pulse Rate [Right Finger] 99 H Pulse Rate from SpO2 Sensor Pulse Rhythm Pulse Strength Respiratory Rate 20 Respiratory Effort / Characteristics Respiratory Depth Respiratory Pattern Blood Pressure Blood Pressure [Left Arm] 142/76 H Blood Pressure Mean Blood Pressure Mean [Left Arm] 98 Blood Pressure Position Blood Pressure Position [Left Arm] Pulse Oximetry 99 Oxygen Delivery Method Nasal Cannula Oxygen Flow Rate 2 Sepsis Recent Fever Within 48 Hours Sepsis New/Unexplained Change in Mental Status Sepsis Action Taken by Nursing Laboratory Data Result diagrams: 07/01/20 09:20 07/01/20 09:20 Lab Results 07/01/20 07/01/20 07/01/20 Range/Units 09:20 09:20 Unknown WBC 2.70 L (4.8-10.8) K/uL RBC 3.73 L (4.2-5.4) M/uL Hgb 11.5 L (12.0-16.0) g/dL Hct 35.4 L (37-47) % MCV 94.9 (80-100) fL MCH 30.8 (25-34) pg MCHC 32.5 (32-36) g/dL RDW Std Deviation 54.1 H (36.4-46.3) fL RDW Coeff of Davida 15.6 H (11.5-14.5) % Plt Count 53 L (130-400) K/uL MPV 12.1 H (7.4-10.4) fL Immature Gran % (Auto) 0.4 % Neut % (Auto) 77.4 % Lymph % (Auto) 13.3 % Garden % (Auto) 7.4 % Eos % (Auto) 1.1 % Baso % (Auto) 0.4 % Neut # (Auto) 2.09 (1.4-6.5) K/uL Lymph # (Auto) 0.36 L (1.2-3.4) K/uL Garden # (Auto) 0.20 (0.11-0.59) K/uL Eos # (Auto) 0.03 (0-0.5) K/uL Baso # (Auto) 0.01 (0-0.2) K/uL Immature Gran # (Auto) 0.01 (0.00-0.02) K/uL Platelet Estimate Decreased L (Normal) RBC Morphology Unremarkable Sodium 143 (136-145) mmol/L Potassium 4.0 (3.5-5.1) mmol/L Chloride 111 H (98-107) mmol/L Carbon Dioxide 28 (21-32) mmol/L Anion Gap 4.0 (3-11) BUN 11 (7-18) mg/dl Creatinine 0.76 (0.6-1.2) mg/dl Est Cr Clr Drug Dosing 52.8 ml/min Est GFR ( Amer) 88.9 Est GFR (Non-Af Amer) 76.7 BUN/Creatinine Ratio 14.1 (10-20) Glucose 177 H (70-99) mg/dl Calcium 8.5 (8.5-10.1) mg/dl Total Bilirubin 1.1 H (0.2-1) mg/dl AST 21 (15-37) U/L ALT 21 (12-78) U/L Alkaline Phosphatase 75 (45-117) U/L Troponin I < 0.015 (0-0.045) ng/ml Total Protein 6.1 L (6.4-8.2) gm/dl Albumin 3.4 (3.4-5.0) gm/dl Globulin 2.7 (2.5-4.0) gm/dl Albumin/Globulin Ratio 1.3 (0.9-2) Lipase 89 (73-393) U/L COVID-19 Eval Order CovFluRsv at [facility] SARS-CoV-2 (PCR) (Negative) Influenza Type A (PCR) (Neg) Influenza Type B (PCR) (Neg) RSV (RT-PCR) (Neg) 07/01/20 Range/Units Unknown WBC (4.8-10.8) K/uL RBC (4.2-5.4) M/uL Hgb (12.0-16.0) g/dL Hct (37-47) % MCV (80-100) fL MCH (25-34) pg MCHC (32-36) g/dL RDW Std Deviation (36.4-46.3) fL RDW Coeff of Davida (11.5-14.5) % Plt Count (130-400) K/uL MPV (7.4-10.4) fL Immature Gran % (Auto) % Neut % (Auto) % Lymph % (Auto) % Garden % (Auto) % Eos % (Auto) % Baso % (Auto) % Neut # (Auto) (1.4-6.5) K/uL Lymph # (Auto) (1.2-3.4) K/uL Garden # (Auto) (0.11-0.59) K/uL Eos # (Auto) (0-0.5) K/uL Baso # (Auto) (0-0.2) K/uL Immature Gran # (Auto) (0.00-0.02) K/uL Platelet Estimate (Normal) RBC Morphology Sodium (136-145) mmol/L Potassium (3.5-5.1) mmol/L Chloride (98-107) mmol/L Carbon Dioxide (21-32) mmol/L Anion Gap (3-11) BUN (7-18) mg/dl Creatinine (0.6-1.2) mg/dl Est Cr Clr Drug Dosing ml/min Est GFR ( Amer) Est GFR (Non-Af Amer) BUN/Creatinine Ratio (10-20) Glucose (70-99) mg/dl Calcium (8.5-10.1) mg/dl Total Bilirubin (0.2-1) mg/dl AST (15-37) U/L ALT (12-78) U/L Alkaline Phosphatase (45-117) U/L Troponin I (0-0.045) ng/ml Total Protein (6.4-8.2) gm/dl Albumin (3.4-5.0) gm/dl Globulin (2.5-4.0) gm/dl Albumin/Globulin Ratio (0.9-2) Lipase (73-393) U/L COVID-19 Eval Order SARS-CoV-2 (PCR) NEGATIVE (Negative) Influenza Type A (PCR) Negative (Neg) Influenza Type B (PCR) Negative (Neg) RSV (RT-PCR) Negative (Neg) Administered Medications Discontinued Medications Ioversol (Optiray 350 500ml) 94 ml IV ONCE ONE Stop: 07/01/20 11:10 Last Admin: 07/01/20 11:10 Dose: 94 ml Documented by: [id number] Imaging Data Radiologist's Impression: Chest CTA 07/01/20 09:00 CT ANGIOGRAM OF THE CHEST; CT SCAN OF THE ABDOMEN AND PELVIS WITH IV CONTRAST CLINICAL HISTORY: Hypoxia. Generalized abdominal pain. COMPARISON STUDY: Chest x-ray dated 07/01/2020. TECHNIQUE: Following the IV administration of 94 of Optiray 350, CT angiogram of the chest is performed from the upper abdomen to the thoracic inlet utilizing the pulmonary embolus protocol. Images are reviewed in the axial, sagittal, coronal planes. 3-D MIPS images are created and assessed. Subsequently, CT scan of the abdomen and pelvis was performed from the lung bases to the proximal femora. Images are reviewed in the axial, sagittal, and coronal planes. IV contrast was administered without complication. A dose lowering technique was utilized adhering to the principles of ALARA. The examination is degraded by motion artifact. CT DOSE: 898.13 mGycm FINDINGS: CHEST: Thyroid: Atrophic and heterogeneous. Thoracic aorta: The thoracic aorta is normal in caliber and demonstrates standard 3-vessel arch anatomy. No dissection is seen. Pulmonary vasculature: The pulmonary trunk is normal in caliber. There are no filling defects identified in the main or lobar pulmonary arteries to indicate pulmonary embolus. Evaluation of the segmental and subsegmental branches is severely compromised by motion artifact. Heart: The heart is normal in size and configuration, and without pericardial effusion. Lungs and pleural spaces: Evaluation of the lung parenchyma is significantly compromised by motion artifact. There are is a large right pleural effusion with complete atelectasis of the right lower lung. The right upper lobe remains aerated. There is a small left pleural effusion with basilar atelectasis. The trachea and central airways are clear. Mediastinum: There is leftward shift of the mediastinum. There is no mediastinal lymphadenopathy. Linda: Clear. Axillae: There is no axillary lymphadenopathy. Bony thorax: The skeletal structures are osteopenic. There is a severe compression deformity of T10 and a moderate compression deformity of T12. Degenerative change and kyphoscoliosis is noted in the thoracic spine. No lytic or blastic lesions are identified. Arthritic change is noted in the shoulders. ABDOMEN AND PELVIS: Liver: The contrast-enhanced liver is cirrhotic in morphology and heterogeneous in attenuation. There is nodularity of the hepatic surface contour. There is no intrahepatic or ductal dilatation. There is nonocclusive thrombus identified within the intrahepatic right and left portal veins. This is best seen on images #126 (left) and #141 (right). The main portal vein is patent, and hepatic veins are clear. There is trace nonocclusive thrombus within the superior mesenteric vein as seen on image #157. Nonocclusive thrombus within the splenic vein is seen on image #129. Gallbladder: Unremarkable. Spleen: The spleen is enlarged measuring 16 cm in length. There are perisplenic varices. Pancreas: Moderately atrophic and grossly unremarkable. Adrenal glands: Unremarkable. Kidneys: The contrast enhanced kidneys are atrophic and without hydronephrosis. The kidneys enhance symmetrically. Abdominal vasculature: The abdominal aorta is normal in course and caliber noting mild atherosclerotic calcification. Bowel: There is mild to moderate colonic diverticulosis without CT evidence of acute diverticulitis. No bowel obstruction is identified. The appendix is well- visualized and normal. Mild wall thickening is seen throughout the colon with pericolonic infiltration. Peritoneum: There is a small volume of abdominopelvic ascites. No intraperitoneal free air is identified. Diffuse mesenteric edema is noted. Lymphadenopathy: None. Pelvic viscera: The bladder, uterus, and adnexa are normal as visualized. Skeletal structures: The skeletal structures are osteopenic. No lytic or blastic lesions are seen. There are severe compression deformities of L2 and L3 with retropulsed fragments. This continues to at least moderate central canal stenosis at L2. There is chronic posterior matter deformity and postoperative change noted in the left proximal femur with intertrochanteric and intramedullary nails in place. There are healed bilateral pubic ring fractures. Chronic posterior matter deformity is also seen in the lower sacrum. Soft tissues: There is body wall edema. IMPRESSION: 1. Motion compromised examination. 2. There is no evidence of central pulmonary embolus in the main or lobar pulmonary arteries. Segmental and subsegmental branches cannot be evaluated. 3. There is a large right pleural effusion with complete atelectasis of the right lower lung and leftward shift of the mediastinum. 4. There is a small left pleural effusion with left basilar atelectasis. 5. Cirrhotic liver morphology. 6. Splenomegaly, perisplenic varices, and a small volume of abdominopelvic ascites indicate portal hypertension. 7. There is nonocclusive thrombus within the intrahepatic right and left lobe portal veins, the splenic vein, and the superior mesenteric vein. 8. There is mild diffuse colonic wall thickening and edema with pericolonic infiltration. This could represent portal colopathy versus a nonspecific proctocolitis. Clinical correlation will be essential. 9. Colonic diverticulosis without CT evidence of acute diverticulitis. 10. There are numerous thoracolumbar compression deformity as above. These are age indeterminant but likely chronic. Clinical correlation will be required. 11. Additional findings as above. ACT 112: Negative or not required by law. Electronically signed by: Angelito Nur M.D. 07/01/2020 11:51 AM Chest X-Ray 07/01/20 09:01 XR chest 1V portable CLINICAL HISTORY: Atypical chest pain COMPARISON STUDY: 02/02/2020 FINDINGS: There is a moderate subpulmonic right pleural effusion, and small subpulmonic left pleural effusion. There are bibasilar opacity statistically representing compressive atelectasis. The heart is normal in size. There is a 4 mm metallic density projected over the right upper lung zone of uncertain etiology.[ IMPRESSION: 1. Bilateral pleural effusions right greater than left with associated basilar opacities statistically representing compressive atelectasis ACT 112: Negative or not required by law. Electronically signed by: Jasen Buenrostro M.D. 07/01/2020 9:32 AM Abdomen/Pelvis CT 07/01/20 09:08 CT ANGIOGRAM OF THE CHEST; CT SCAN OF THE ABDOMEN AND PELVIS WITH IV CONTRAST CLINICAL HISTORY: Hypoxia. Generalized abdominal pain. COMPARISON STUDY: Chest x-ray dated 07/01/2020. TECHNIQUE: Following the IV administration of 94 of Optiray 350, CT angiogram of the chest is performed from the upper abdomen to the thoracic inlet utilizing the pulmonary embolus protocol. Images are reviewed in the axial, sagittal, coronal planes. 3-D MIPS images are created and assessed. Subsequently, CT scan of the abdomen and pelvis was performed from the lung bases to the proximal femora. Images are reviewed in the axial, sagittal, and coronal planes. IV contrast was administered without complication. A dose lowering technique was ut ilized adhering to the principles of ALARA. The examination is degraded by motion artifact. CT DOSE: 898.13 mGycm FINDINGS: CHEST: Thyroid: Atrophic and heterogeneous. Thoracic aorta: The thoracic aorta is normal in caliber and demonstrates standard 3-vessel arch anatomy. No dissection is seen. Pulmonary vasculature: The pulmonary trunk is normal in caliber. There are no filling defects identified in the main or lobar pulmonary arteries to indicate pulmonary embolus. Evaluation of the segmental and subsegmental branches is severely compromised by motion artifact. Heart: The heart is normal in size and configuration, and without pericardial effusion. Lungs and pleural spaces: Evaluation of the lung parenchyma is significantly compromised by motion artifact. There are is a large right pleural effusion with complete atelectasis of the right lower lung. The right upper lobe remains a erated. There is a small left pleural effusion with basilar atelectasis. The trachea and central airways are clear. Mediastinum: There is leftward shift of the mediastinum. There is no mediastinal lymphadenopathy. Linda: Clear. Axillae: There is no axillary lymphadenopathy. Bony thorax: The skeletal structures are osteopenic. There is a severe compression deformity of T10 and a moderate compression deformity of T12. Degenerative change and kyphoscoliosis is noted in the thoracic spine. No lytic or blastic lesions are identified. Arthritic change is noted in the shoulders. ABDOMEN AND PELVIS: Liver: The contrast-enhanced liver is cirrhotic in morphology and heterogeneous in attenuation. There is nodularity of the hepatic surface contour. There is no intrahepatic or ductal dilatation. There is nonocclusive thrombus identified within the intrahepatic right and left portal veins. This is best seen on images #126 (left) and #141 (right). The main portal vein is patent, and hepatic veins are clear. There is trace nonocclusive thrombus within the superior mesenteric vein as seen on image #157. Nonocclusive thrombus within the splenic vein is seen on image #129. Gallbladder: Unremarkable. Spleen: The spleen is enlarged measuring 16 cm in length. There are perisplenic varices. Pancreas: Moderately atrophic and grossly unremarkable. Adrenal glands: Unremarkable. Kidneys: The contrast enhanced kidneys are atrophic and without hydronephrosis. The kidneys enhance symmetrically. Abdominal vasculature: The abdominal aorta is normal in course and caliber noting mild atherosclerotic calcification. Bowel: There is mild to moderate colonic diverticulosis without CT evidence of acute diverticulitis. No bowel obstruction is identified. The appendix is well- visualized and normal. Mild wall thickening is seen throughout the colon with pericolonic infiltration. Peritoneum: There is a small volume of abdominopelvic ascites. No intraperitoneal free air is identified. Diffuse mesenteric edema is noted. Lymphadenopathy: None. Pelvic viscera: The bladder, uterus, and adnexa are normal as visualized. Skeletal structures: The skeletal structures are osteopenic. No lytic or blastic lesions are seen. There are severe compression deformities of L2 and L3 with retropulsed fragments. This continues to at least moderate central canal steno sis at L2. There is chronic posterior matter deformity and postoperative change noted in the left proximal femur with intertrochanteric and intramedullary nails in place. There are healed bilateral pubic ring fractures. Chronic posterior matter deformity is also seen in the lower sacrum. Soft tissues: There is body wall edema. IMPRESSION: 1. Motion compromised examination. 2. There is no evidence of central pulmonary embolus in the main or lobar pulmonary arteries. Segmental and subsegmental branches cannot be evaluated. 3. There is a large right pleural effusion with complete atelectasis of the right lower lung and leftward shift of the mediastinum. 4. There is a small left pleural effusion with left basilar atelectasis. 5. Cirrhotic liver morphology. 6. Splenomegaly, perisplenic varices, and a small volume of abdominopelvic ascites indicate portal hypertension. 7. There is nonocclusive thrombus within the intrahepatic right and left lobe portal veins, the splenic vein, and the superior mesenteric vein. 8. There is mild diffuse colonic wall thickening and edema with pericolonic infiltration. This could represent portal colopathy versus a nonspecific proctocolitis. Clinical correlation will be essential. 9. Colonic diverticulosis without CT evidence of acute diverticulitis. 10. There are numerous thoracolumbar compression deformity as above. These are age indeterminant but likely chronic. Clinical correlation will be required. 11. Additional findings as above. ACT 112: Negative or not required by law. Electronically signed by: Angelito Nur M.D. 07/01/2020 11:51 AM Discharge Plan Visit Data Chief Complaint: Diarrhea Stated Complaint: DIARRHEA, SOB, ABDOMINAL PAIN ED Provider: [facility] Discharge Problem: Hypoxia, Cirrhosis, Pleural effusion, Diarrhea Forms Stand Alone Forms: [facility] Prescriptions Prescriptions: No Action acetaminophen [Tylenol] 325 mg Tablet 650 mg PO QID PRN (Reason: Pain) RF: 0 atorvastatin [Lipitor] 10 mg tablet 10 mg PO DAILY RF: 0 glipizide [Glucotrol XL] 10 mg tablet extended release 24hr 10 mg PO DAILY RF: 0 alendronate [Fosamax] 70 mg tablet 70 mg PO WK RF: 0 lisinopril 10 mg tablet 10 mg PO DAILY RF: 0 omeprazole 20 mg capsule,delayed release(DR/EC) 20 mg PO DAILY RF: 0 metoprolol succinate [Toprol XL] 25 mg tablet extended release 24 hr 25 mg PO DAILY RF: 0 tamoxifen 20 mg tablet 20 mg PO DAILY RF: 0 magnesium oxide 400 mg magnesium Tablet 400 mg PO DAILY RF: 0 quetiapine 50 mg tablet 50 mg PO HS RF: 0 cholecalciferol (vitamin D3) [Vitamin D3] 50 mcg (2,000 unit) Tablet 50 mcg PO Q2D RF: 0 Discharge Problem: Cirrhosis Qualifiers: Hepatic cirrhosis type: unspecified hepatic cirrhosis Ascites presence: unspecified Qualified Code(s): K74.60 - Unspecified cirrhosis of liver Diarrhea Qualifiers: Diarrhea type: unspecified type Qualified Code(s): R19.7 - Diarrhea, unspecified
--- NOTE | 2020-07-01 09:34 | XRay Report ---
XR chest 1V portable CLINICAL HISTORY: Atypical chest pain COMPARISON STUDY: 02/02/2020 FINDINGS: There is a moderate subpulmonic right pleural effusion, and small subpulmonic left pleural effusion. There are bibasilar opacity statistically representing compressive atelectasis. The heart i s normal in size. There is a 4 mm metallic density projected over the right upper lung zone of uncert ain etiology.[ IMPRESSION: 1. Bilateral pleural effusions right greater than left with associated basilar opacities statisticall y representing compressive atelectasis ACT 112: Negative or not required by law. Electronically signed by: Jasen Buenrostro M.D. 07/01/2020 9:32 AM
[2020-07-01 10:19] LABS: Alanine Aminotransferase 21 U/L (12-78); Albumin Globulin Ratio 1.3 (0.9-2); Albumin Level 3.4 gm/dl (3.4-5.0); Alkaline Phosphatase 75 U/L (45-117); Aspartate Aminotransferase 21 U/L (15-37); BUN Creatinine Ratio 14.1 (10-20); Bilirubin,Total 1.1 mg/dl (0.2-1); Blood Urea Nitrogen 11 mg/dl (7-18); Calcium 8.5 mg/dl (8.5-10.1); Carbon Dioxide 28 mmol/L (21-32); Chloride 111 mmol/L (98-107); Creatinine Clr Calc Pharmacy 52.8 ml/min; Est GFR (African American) 88.9; Est GFR (Non-African American) 76.7; Globulin 2.7 gm/dl (2.5-4.0); Glucose 177 mg/dl (70-99); Lipase 89 U/L (73-393); Sodium 143 mmol/L (136-145); Total Protein 6.1 gm/dl (6.4-8.2); Troponin I < 0.015 ng/ml (0-0.045)
[2020-07-01 10:26] LABS: Hematocrit (blood only) 35.4 % (37-47); Hemoglobin 11.5 g/dL (12.0-16.0); Mean Corpuscular Hemoglobin 30.8 pg (25-34); Mean Corpuscular Hgb Conc 32.5 g/dL (32-36); Mean Corpuscular Volume 94.9 fL (80-100); Mean Platelet Volume 12.1 fL (7.4-10.4); Platelet Count 53 K/uL (130-400); RDW Coefficient of Variation 15.6 % (11.5-14.5); RDW Standard Deviation 54.1 fL (36.4-46.3); Red Blood Count 3.73 M/uL (4.2-5.4)
[2020-07-01 10:27] LABS: Basophils # (auto) 0.01 K/uL (0-0.2); Basophils % (auto) 0.4 %; Eosinophils # (auto) 0.03 K/uL (0-0.5); Eosinophils % (auto) 1.1 %; Immature Granulocytes # (auto) 0.01 K/uL (0.00-0.02); Immature Granulocytes % (auto) 0.4 %; Lymphocytes # (auto) 0.36 K/uL (1.2-3.4); Lymphocytes % (auto) 13.3 %; Monocytes % (auto) 7.4 %; Neutrophils # (auto) 2.09 K/uL (1.4-6.5); Neutrophils % (auto) 77.4 %; Platelet Estimate Decreased (Normal); RBC Morphology Unremarkable
[2020-07-01 10:27] LABS: Influenza A virus by PCR Negative (Neg); Influenza B virus by PCR Negative (Neg); RSV by PCR Negative (Neg); SARS CoV2 RNA(COVID-19) InHosp NEGATIVE (Negative)
[2020-07-01] MEDS ORDERED: OPTIRAY 350 500ml IV ONE (11:09)
--- NOTE | 2020-07-01 11:53 | CT Scan Report ---
CT ANGIOGRAM OF THE CHEST; CT SCAN OF THE ABDOMEN AND PELVIS WITH IV CONTRAST CLINICAL HISTORY: Hypoxia. Generalized abdominal pain. COMPARISON STUDY: Chest x-ray dated 07/01/2020. TECHNIQUE: Following the IV administration of 94 of Optiray 350, CT angiogram of the chest is perform ed from the upper abdomen to the thoracic inlet utilizing the pulmonary embolus protocol. Images are reviewed in the axial, sagittal, coronal planes. 3-D MIPS images are created and assessed. Subsequent ly, CT scan of the abdomen and pelvis was performed from the lung bases to the proximal femora. Image s are reviewed in the axial, sagittal, and coronal planes. IV contrast was administered without compl ication. A dose lowering technique was utilized adhering to the principles of ALARA. The examination is degraded by motion artifact. CT DOSE: 898.13 mGycm FINDINGS: CHEST: Thyroid: Atrophic and heterogeneous. Thoracic aorta: The thoracic aorta is normal in caliber and demonstrates standard 3-vessel arch anato my. No dissection is seen. Pulmonary vasculature: The pulmonary trunk is normal in caliber. There are no filling defects identif ied in the main or lobar pulmonary arteries to indicate pulmonary embolus. Evaluation of the segmenta l and subsegmental branches is severely compromised by motion artifact. Heart: The heart is normal in size and configuration, and without pericardial effusion. Lungs and pleural spaces: Evaluation of the lung parenchyma is significantly compromised by motion ar tifact. There are is a large right pleural effusion with complete atelectasis of the right lower lung . The right upper lobe remains aerated. There is a small left pleural effusion with basilar atelectas is. The trachea and central airways are clear. Mediastinum: There is leftward shift of the mediastinum. There is no mediastinal lymphadenopathy. Linda: Clear. Axillae: There is no axillary lymphadenopathy. Bony thorax: The skeletal structures are osteopenic. There is a severe compression deformity of T10 a nd a moderate compression deformity of T12. Degenerative change and kyphoscoliosis is noted in the th oracic spine. No lytic or blastic lesions are identified. Arthritic change is noted in the shoulders. ABDOMEN AND PELVIS: Liver: The contrast-enhanced liver is cirrhotic in morphology and heterogeneous in attenuation. There is nodularity of the hepatic surface contour. There is no intrahepatic or ductal dilatation. There i s nonocclusive thrombus identified within the intrahepatic right and left portal veins. This is best seen on images #126 (left) and #141 (right). The main portal vein is patent, and hepatic veins are cl ear. There is trace nonocclusive thrombus within the superior mesenteric vein as seen on image #157. Nonocclusive thrombus within the splenic vein is seen on image #129. Gallbladder: Unremarkable. Spleen: The spleen is enlarged measuring 16 cm in length. There are perisplenic varices. Pancreas: Moderately atrophic and grossly unremarkable. Adrenal glands: Unremarkable. Kidneys: The contrast enhanced kidneys are atrophic and without hydronephrosis. The kidneys enhance s ymmetrically. Abdominal vasculature: The abdominal aorta is normal in course and caliber noting mild atheroscleroti c calcification. Bowel: There is mild to moderate colonic diverticulosis without CT evidence of acute diverticulitis. No bowel obstruction is identified. The appendix is well-visualized and normal. Mild wall thickening is seen throughout the colon with pericolonic infiltration. Peritoneum: There is a small volume of abdominopelvic ascites. No intraperitoneal free air is identif ied. Diffuse mesenteric edema is noted. Lymphadenopathy: None. Pelvic viscera: The bladder, uterus, and adnexa are normal as visualized. Skeletal structures: The skeletal structures are osteopenic. No lytic or blastic lesions are seen. Th ere are severe compression deformities of L2 and L3 with retropulsed fragments. This continues to at least moderate central canal stenosis at L2. There is chronic posterior matter deformity and postoper ative change noted in the left proximal femur with intertrochanteric and intramedullary nails in plac e. There are healed bilateral pubic ring fractures. Chronic posterior matter deformity is also seen i n the lower sacrum. Soft tissues: There is body wall edema. IMPRESSION: 1. Motion compromised examination. 2. There is no evidence of central pulmonary embolus in the main or lobar pulmonary arteries. Segment al and subsegmental branches cannot be evaluated. 3. There is a large right pleural effusion with complete atelectasis of the right lower lung and left lee shift of the mediastinum. 4. There is a small left pleural effusion with left basilar atelectasis. 5. Cirrhotic liver morphology. 6. Splenomegaly, perisplenic varices, and a small volume of abdominopelvic ascites indicate portal hy pertension. 7. There is nonocclusive thrombus within the intrahepatic right and left lobe portal veins, the splen ic vein, and the superior mesenteric vein. 8. There is mild diffuse colonic wall thickening and edema with pericolonic infiltration. This could represent portal colopathy versus a nonspecific proctocolitis. Clinical correlation will be essential . 9. Colonic diverticulosis without CT evidence of acute diverticulitis. 10. There are numerous thoracolumbar compression deformity as above. These are age indeterminant but likely chronic. Clinical correlation will be required. 11. Additional findings as above. ACT 112: Negative or not required by law. Electronically signed by: Angelito Nur M.D. 07/01/2020 11:51 AM
--- NOTE | 2020-07-01 12:36 | History & Physical Report ---
Date of Service July 01, 2020 Assessment & Plan (1) Acute respiratory failure with hypoxia: (2) Bilateral pleural effusion: (3) Portal vein thrombosis: (4) Diarrhea: (5) Alcoholic cirrhosis of liver: (6) Breast cancer: (7) Pancytopenia: (8) Diabetes mellitus: (9) HTN (hypertension): (10) CKD (chronic kidney disease), stage III: This is a 75yo F with a PMH of alcohol liver cirrhosis with recently diagnosed portal vein thrombosis, pancytopenia, DM II, history of breast cancer in 2017 status post resection, on tamoxifen, CKD III, h/o CVA and other medical problems listed below who presents with progressive shortness of breath of the past 2 weeks who presents with acute hypoxic respiratory failure in the setting of bilateral pleural effusions. Acute hypoxic respiratory failure Bilateral pleural effusions, R>L Hypoxic on RA in 80s initially, now saturating 99% on room air Chest CTA with large right pleural effusion with complete atelectasis of the right lower lung and leftward shift of the mediastinum Pulmonology consulted. Dr. Escobar planning to place chest tube later today Follow cytology - patient with history of breast cancer Continue supplemental O2 Portal vein thrombosis Alcohol liver cirrhosis Recent follow-up with GI service with ultrasound revealed new portal vein thrombosis Scheduled for semiurgent EGD scheduled for 07/08 to rule out varices prior to starting anticoagulation Discussed with GI as patient likely to need EGD during admission Keep NPO until assessment Diarrhea Ongoing diarrhea over the past few weeks. Advised to discontinue Enulose and dicyclomine with goal of 1 bowel movement daily Continue to have 3 episodes daily, some melanotic FOBT, stool cx, cdiff GI consulted History of breast cancer Follows with Dr. Mar History of R invasive ductal carcinoma ER strongly positive, [place] negative, her 2 Denisse negative on anastrozole since 05/2016 Because of some worsening finding on the DEXA bone density scan it was changed t o tamoxifen on 09/27/2018 which she has continued Pancytopenia In setting of cirrhosis, h/o breast cancer. WBC 2.7, RBC 3.73, hgb 11.5, plt 53) Continue to monitor with daily CBC Diabetes II A1c 6.3 in April 2020 Hold home agents SSI while in-patient BSG AC HS Hypertension Continue lisinopril, Toprol CKD III Kidney function at baseline. Continue to monitor with daily BMP DVT Ppx: SCDs Code status: FULL PCP: Chad Dispo: Admitted to PCU. Discharge planning ordered. Patient seen in collaboration with Dr. Borja. Please see addendum. History of Present Illness Chief Complaint: hypoxia, diarrhea Primary Care Provider: Lucy Bonilla DO This is a 75yo F with a PMH of alcohol liver cirrhosis with recently diagnosed portal vein thrombosis, pancytopenia, DM II, history of breast cancer in 2017 status post resection, on tamoxifen, CKD III, h/o CVA and other medical problems listed below who presents with progressive shortness of breath of the past 2 weeks. Patient has been experiencing progressively worsening shortness of breath that she attributed to panic attacks surrounding urgent need to get to the bathroom for episodes of diarrhea. Found to drop into the 80s with any type of movement in the ED. Currently saturating at 99% on 2 L nasal cannula. Patient with history of alcohol liver cirrhosis diagnosed in 2009 and recent GI follow-u revealed new portal vein thrombosis on ultrasound. Scheduled for semiurgent EGD scheduled for 07/08 to rule out varices prior to starting anticoagulation. Also with ongoing diarrhea at this point and patient was directed to stop the Enulose and dicyclomine with goal of 1 bowel movement daily. Continues to experience 3 loose bouts of diarrhea daily some black in color. Poor appetite and weight loss of 20 pounds over the past year. Is due for follow-up with heme-onc had to be rescheduled due to patient's recent hip fracture with rehab stay. History of R invasive ductal carcinoma ER strongly positive, WA negative, her 2 Denisse negative on anastrozole since 05/2016. Because of some worsening finding on the DEXA bone density scan it was changed to tamoxifen on 09/27/2018. Is due for heme onc follow up. Denies any fever, chills, lightheadedness, headache, chest pain, palpitations, wheezing, nausea, vomiting, abdominal pain, dysuria or constipation. Allergies Allergy/AdvReac Type Severity Reaction Status Date / Time Sulfa (Sulfonamide Allergy Unknown RASH Verified 07/01/20 10:29 Antibiotics) Home Medications Medication Instructions Recorded Confirmed Type acetaminophen [Tylenol] 650 mg PO QID PRN 02/02/20 07/01/20 History alendronate [Fosamax] 70 mg PO WK 02/02/20 07/01/20 History atorvastatin [Lipitor] 10 mg PO DAILY 02/02/20 07/01/20 History glipizide [Glucotrol XL] 10 mg PO DAILY 02/02/20 07/01/20 History lisinopril 10 mg PO DAILY 02/02/20 07/01/20 History magnesium oxide 400 mg PO DAILY 02/02/20 07/01/20 History metoprolol succinate [Toprol XL] 25 mg PO DAILY 02/02/20 07/01/20 History omeprazole 20 mg PO DAILY 02/02/20 07/01/20 History tamoxifen 20 mg PO DAILY 02/02/20 07/01/20 History cholecalciferol (vitamin D3) 50 mcg PO Q2D 07/01/20 07/01/20 History [Vitamin D3] quetiapine 50 mg PO HS 07/01/20 07/01/20 History Past Med/Surg History Medical History (Updated 07/01/20 @ 13:56 by Sabrina Mills PA-C) Alcoholic cirrhosis of liver Breast cancer CKD (chronic kidney disease) CKD (chronic kidney disease), stage III CVA (cerebral vascular accident) Diabetes mellitus Esophageal 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 HTN (hypertension) PAD (peripheral artery disease) Pancytopenia Peripheral neuropathy Surgical History (Updated 07/01/20 @ 13:55 by Sabrina Mills PA-C) History of partial mastectomy of right breast Hx of cholecystectomy Family History Other Cirrhosis Dementia Social History Smoking Status: Never smoker Second Hand Exposure: No; Do You Dip or Chew Tobacco: No; Tobacco Cessation Education Requested by Patient: No Hx Alcohol Use: Yes Alcohol type: beer and wine Hx Substance Use: No Preferred Language: Tajik Communication Ability: Effective Chemical Engineering Technician Required: No Beliefs That Will Affect Care: None Current Living Situation: Alone Other Information That Helps Us Care for You: No Feels Safe at Home: Yes Safety Concerns: Feels Safe At This Time Assistive Devices: Glasses, Hearing Aid - Bilateral, Hearing Aid - Left, Hearing Aid - Right and Walker Review of Systems Review of Systems: At least ten systems reviewed and negative except as noted in the HPI. Physical Exam Physical Exam: General Appearance: WD/WN, vitals as above, NAD, sitting up in bed, pleasant, conversing easily, anxious Head: normocephalic, atraumatic Eyes: normal inspection, PERRL, conjunctivae normal, anicteric sclerae ENT: external ear and nose normal, oropharynx normal Neck: normal visual inspection, trachea midline, no thyromegaly Respiratory: normal respiratory effort, diminished lung sounds on R, no wheezes or rhonchi. No accessory muscle use Cardiovascular: tachycardic, regular rhythm, no murmur appreciated, normal peripheral pulses, 1+ BLE edema. Vessels: no JVD Chest: normal inspection of chest Abdomen/GI: normal bowel sounds, soft, nontender, no hepatosplenomegaly Extremities/Musculoskeletal: no cyanosis or clubbing, extremities motor strength 5/5 Neurologic: PERRL, EOMI, accommodation nl, no face palsy, no dysarthria, CN's II-XI intact bilaterally and moves all extremities Psychiatric: A+Ox3, + anxious Skin: no rashes, normal color, warm/dry Results & Data Results & Data ([facility]) Vital Signs (Past 12 Hours) Vital Signs Temp Pulse Pulse Resp BP BP Pulse Ox 07/01/20 12:00 99 H 20 142/76 H 99 07/01/20 10:40 101 H 31 H 97 07/01/20 10:36 98 H 31 H 160/81 H 100 07/01/20 10:34 109 H 20 97 07/01/20 10:20 97 H 30 H 100 07/01/20 10:10 96 H 32 H 100 07/01/20 10:00 100 H 33 H 160/81 H 100 07/01/20 09:50 101 H 24 99 07/01/20 09:48 104 H 21 178/67 H 98 07/01/20 09:47 105 H 21 85 L 07/01/20 09:30 99 H 26 H 100 07/01/20 09:26 97 H 22 99 07/01/20 09:20 102 H 29 H 100 07/01/20 09:10 98 H 22 100 07/01/20 09:01 101 H 25 H 99 07/01/20 08:59 101 H 24 140/76 99 07/01/20 08:58 94 H 23 99 07/01/20 08:57 95 H 24 140/76 99 07/01/20 08:41 36.7 C 108 H 20 168/73 H 91 Laboratory Results Short CBC 07/01/20 Range/Units 09:20 WBC 2.70 L (4.8-10.8) K/uL Hgb 11.5 L (12.0-16.0) g/dL Hct 35.4 L (37-47) % Plt Count 53 L (130-400) K/uL BMP 07/01/20 09:20 Sodium 143 Potassium 4.0 Chloride 111 H Carbon Dioxide 28 BUN 11 Creatinine 0.76 Glucose 177 H Calcium 8.5 Cardiac Enzymes 07/01/20 Range/Units 09:20 Troponin I < 0.015 (0-0.045) ng/ml Liver Function 07/01/20 Range/Units 09:20 Total Bilirubin 1.1 H (0.2-1) mg/dl AST 21 (15-37) U/L ALT 21 (12-78) U/L Alkaline Phosphatase 75 (45-117) U/L Albumin 3.4 (3.4-5.0) gm/dl Diagnostic Findings Chest CTA 07/01/20 09:00 CT ANGIOGRAM OF THE CHEST; CT SCAN OF THE ABDOMEN AND PELVIS WITH IV CONTRAST CLINICAL HISTORY: Hypoxia. Generalized abdominal pain. COMPARISON STUDY: Chest x-ray dated 07/01/2020. TECHNIQUE: Following the IV administration of 94 of Optiray 350, CT angiogram of the chest is performed from the upper abdomen to the thoracic inlet utilizing the pulmonary embolus protocol. Images are reviewed in the axial, sagittal, coronal planes. 3-D MIPS images are created and assessed. Subsequently, CT scan of the abdomen and pelvis was performed from the lung bases to the proximal femora. Images are reviewed in the axial, sagittal, and coronal planes. IV contrast was administered without complication. A dose lowering technique was utilized adhering to the principles of ALARA. The examination is degraded by motion artifact. CT DOSE: 898.13 mGycm FINDINGS: CHEST: Thyroid: Atrophic and heterogeneous. Thoracic aorta: The thoracic aorta is normal in caliber and demonstrates standard 3-vessel arch anatomy. No dissection is seen. Pulmonary vasculature: The pulmonary trunk is normal in caliber. There are no filling defects identified in the main or lobar pulmonary arteries to indicate pulmonary embolus. Evaluation of the segmental and subsegmental branches is severely compromised by motion artifact. Heart: The heart is normal in size and configuration, and without pericardial effusion. Lungs and pleural spaces: Evaluation of the lung parenchyma is significantly compromised by motion artifact. There are is a large right pleural effusion with complete atelectasis of the right lower lung. The right upper lobe remains aerated. There is a small left pleural effusion with basilar atelectasis. The trachea and central airways are clear. Mediastinum: There is leftward shift of the mediastinum. There is no mediastinal lymphadenopathy. Linda: Clear. Axillae: There is no axillary lymphadenopathy. Bony thorax: The skeletal structures are osteopenic. There is a severe compression deformity of T10 and a moderate compression deformity of T12. Degenerative change and kyphoscoliosis is noted in the thoracic spine. No lytic or blastic lesions are identified. Arthritic change is noted in the shoulders. ABDOMEN AND PELVIS: Liver: The contrast-enhanced liver is cirrhotic in morphology and heterogeneous in attenuation. There is nodularity of the hepatic surface contour. There is no intrahepatic or ductal dilatation. There is nonocclusive thrombus identified within the intrahepatic right and left portal veins. This is best seen on images #126 (left) and #141 (right). The main portal vein is patent, and hepatic veins are clear. There is trace nonocclusive thrombus within the superior mesenteric vein as seen on image #157. Nonocclusive thrombus within the splenic vein is seen on image #129. Gallbladder: Unremarkable. Spleen: The spleen is enlarged measuring 16 cm in length. There are perisplenic varices. Pancreas: Moderately atrophic and grossly unremarkable. Adrenal glands: Unremarkable. Kidneys: The contrast enhanced kidneys are atrophic and without hydronephrosis. The kidneys enhance symmetrically. Abdominal vasculature: The abdominal aorta is normal in course and caliber noting mild atherosclerotic calcification. Bowel: There is mild to moderate colonic diverticulosis without CT evidence of acute diverticulitis. No bowel obstruction is identified. The appendix is well- visualized and normal. Mild wall thickening is seen throughout the colon with pericolonic infiltration. Peritoneum: There is a small volume of abdominopelvic ascites. No intraperitoneal free air is identified. Diffuse mesenteric edema is noted. Lymphadenopathy: None. Pelvic viscera: The bladder, uterus, and adnexa are normal as visualized. Skeletal structures: The skeletal structures are osteopenic. No lytic or blastic lesions are seen. There are severe compression deformities of L2 and L3 with retropulsed fragments. This continues to at least moderate central canal stenosis at L2. There is chronic posterior matter deformity and postoperative change noted in the left proximal femur with intertrochanteric and intramedullary nails in place. There are healed bilateral pubic ring fractures. Chronic posterior matter deformity is also seen in the lower sacrum. Soft tissues: There is body wall edema. IMPRESSION: 1. Motion compromised examination. 2. There is no evidence of central pulmonary embolus in the main or lobar pulmonary arteries. Segmental and subsegmental branches cannot be evaluated. 3. There is a large right pleural effusion with complete atelectasis of the right lower lung and leftward shift of the mediastinum. 4. There is a small left pleural effusion with left basilar atelectasis. 5. Cirrhotic liver morphology. 6. Splenomegaly, perisplenic varices, and a small volume of abdominopelvic as cites indicate portal hypertension. 7. There is nonocclusive thrombus within the intrahepatic right and left lobe portal veins, the splenic vein, and the superior mesenteric vein. 8. There is mild diffuse colonic wall thickening and edema with pericolonic infiltration. This could represent portal colopathy versus a nonspecific proctocolitis. Clinical correlation will be essential. 9. Colonic diverticulosis without CT evidence of acute diverticulitis. 10. There are numerous thoracolumbar compression deformity as above. These are age indeterminant but likely chronic. Clinical correlation will be required. 11. Additional findings as above. ACT 112: Negative or not required by law. Electronically signed by: Angelito Nur M.D. 07/01/2020 11:51 AM Chest X-Ray 07/01/20 09:01 XR chest 1V portable CLINICAL HISTORY: Atypical chest pain COMPARISON STUDY: 02/02/2020 FINDINGS: There is a moderate subpulmonic right pleural effusion, and small subpulmonic left pleural effusion. There are bibasilar opacity statistically representing compressive atelectasis. The heart is normal in size. There is a 4 mm metallic density projected over the right upper lung zone of uncertain etiology.[ IMPRESSION: 1. Bilateral pleural effusions right greater than left with associated basilar opacities statistically representing compressive atelectasis ACT 112: Negative or not required by law. Electronically signed by: Jasen Buenrostro M.D. 07/01/2020 9:32 AM Abdomen/Pelvis CT 07/01/20 09:08 CT ANGIOGRAM OF THE CHEST; CT SCAN OF THE ABDOMEN AND PELVIS WITH IV CONTRAST CLINICAL HISTORY: Hypoxia. Generalized abdominal pain. COMPARISON STUDY: Chest x-ray dated 07/01/2020. TECHNIQUE: Following the IV administration of 94 of Optiray 350, CT angiogram of the chest is performed from the upper abdomen to the thoracic inlet utilizing the pulmonary embolus protocol. Images are reviewed in the axial, sagittal, coronal planes. 3-D MIPS images are created and assessed. Subsequently, CT scan of the abdomen and pelvis was performed from the lung bases to the proximal femora. Images are reviewed in the axial, sagittal, and coronal planes. IV contrast was administered without complication. A dose lowering technique was utilized adhering to the principles of ALARA. The examination is degraded by motion artifact. CT DOSE: 898.13 mGycm FINDINGS: CHEST: Thyroid: Atrophic and heterogeneous. Thoracic aorta: The thoracic aorta is normal in caliber and demonstrates standard 3-vessel arch anatomy. No dissection is seen. Pulmonary vasculature: The pulmonary trunk is normal in caliber. There are no filling defects identified in the main or lobar pulmonary arteries to indicate pulmonary embolus. Evaluation of the segmental and subsegmental branches is severely compromised by motion artifact. Heart: The heart is normal in size and configuration, and without pericardial effusion. Lungs and pleural spaces: Evaluation of the lung parenchyma is significantly compromised by motion artifact. There are is a large right pleural effusion with complete atelectasis of the right lower lung. The right upper lobe remains aerated. There is a small left pleural effusion with basilar atelectasis. The trachea and central airways are clear. Mediastinum: There is leftward shift of the mediastinum. There is no mediastinal lymphadenopathy. Linda: Clear. Axillae: There is no axillary lymphadenopathy. Bony thorax: The skeletal structures are osteopenic. There is a severe compression deformity of T10 and a moderate compression deformity of T12. Degenerative change and kyphoscoliosis is noted in the thoracic spine. No lytic or blastic lesions are identified. Arthritic change is noted in the shoulders. ABDOMEN AND PELVIS: Liver: The contrast-enhanced liver is cirrhotic in morphology and heterogeneous in attenuation. There is nodularity of the hepatic surface contour. There is no intrahepatic or ductal dilatation. There is nonocclusive thrombus identified within the intrahepatic right and left portal veins. This is best seen on images #126 (left) and #141 (right). The main portal vein is patent, and hepatic veins are clear. There is trace nonocclusive thrombus within the superior mesenteric vein as seen on image #157. Nonocclusive thrombus within the splenic vein is seen on image #129. Gallbladder: Unremarkable. Spleen: The spleen is enlarged measuring 16 cm in length. There are perisplenic varices. Pancreas: Moderately atrophic and grossly unremarkable. Adrenal glands: Unremarkable. Kidneys: The contrast enhanced kidneys are atrophic and without hydronephrosis. The kidneys enhance symmetrically. Abdominal vasculature: The abdominal aorta is normal in course and caliber noting mild atherosclerotic calcification. Bowel: There is mild to moderate colonic diverticulosis without CT evidence of acute diverticulitis. No bowel obstruction is identified. The appendix is well- visualized and normal. Mild wall thickening is seen throughout the colon with pericolonic infiltration. Peritoneum: There is a small volume of abdominopelvic ascites. No intraperit benedict free air is identified. Diffuse mesenteric edema is noted. Lymphadenopathy: None. Pelvic viscera: The bladder, uterus, and adnexa are normal as visualized. Skeletal structures: The skeletal structures are osteopenic. No lytic or blastic lesions are seen. There are severe compression deformities of L2 and L3 with retropulsed fragments. This continues to at least moderate central canal s tenosis at L2. There is chronic posterior matter deformity and postoperative change noted in the left proximal femur with intertrochanteric and intramedullary nails in place. There are healed bilateral pubic ring fractures. Chronic posterior matter deformity is also seen in the lower sacrum. Soft tissues: There is body wall edema. IMPRESSION: 1. Motion compromised examination. 2. There is no evidence of central pulmonary embolus in the main or lobar pulmonary arteries. Segmental and subsegmental branches cannot be evaluated. 3. There is a large right pleural effusion with complete atelectasis of the right lower lung and leftward shift of the mediastinum. 4. There is a small left pleural effusion with left basilar atelectasis. 5. Cirrhotic liver morphology. 6. Splenomegaly, perisplenic varices, and a small volume of abdominopelvic ascites indicate portal hypertension. 7. There is nonocclusive thrombus within the intrahepatic right and left lobe portal veins, the splenic vein, and the superior mesenteric vein. 8. There is mild diffuse colonic wall thickening and edema with pericolonic infiltration. This could represent portal colopathy versus a nonspecific proct ocolitis. Clinical correlation will be essential. 9. Colonic diverticulosis without CT evidence of acute diverticulitis. 10. There are numerous thoracolumbar compression deformity as above. These are age indeterminant but likely chronic. Clinical correlation will be required. 11. Additional findings as above. ACT 112: Negative or not required by law. Electronically signed by: Angelito Nur M.D. 07/01/2020 11:51 AM Supervising Physician Co-Signing Physician Notes I saw this patient with the physician lead recreation assistant, I participated in the history, physical, review of systems, and physical exam. I reviewed the medications with the patient and the physician lead recreation assistant and helped reconcile the medications. I helped take a detailed family and social history as well. I formulated the assessment and plan personally with the physician lead recreation assistant and went over it with the patient. ROS-No Headache, No Visual Changes, No Nausea, No Vomiting, No Fever, No Chills, No Neck Pain or Stiffness, No Chest Pain, No Palpitations, + SOB, +RASMUSSEN, No Cough, No Sputum, No Wheezing, No Abdominal Pain, Occas Diarrhea, No Hematemesis, No Hemoptysis, +20 lb Weight Loss in the last 12 mos, No Flank pain, Occas Melena, No Hematochezia, No Frequency, No Urgency, No Burning, No Hematuria, No Rashes, No Diaphoresis. Appetite is poor Physical Exam Gen-AAO x 3, NAD, Afebrile, Thin Head-NCAT, EOMI, PERRLA, Anicteric Sclera, No Posterior Pharyngeal Erythema Neck-Supple, No JVD, No Thyromegaly, No Masses, No LAD, No Bruits Lungs-Decreased BS Bilaterally R>>L, +Egophony R>>L, No Rales, No Rhonchi, No Wheezing, No Crepitus Chest-No S4, +S1, +S2, No S3, No Murmurs, No Rubs, No Gallops, No Ectopy Abdomen-Soft, Bowel Sounds Present, Non Tender, Non Distended, No Hepatomegaly, No Splenomegaly, No Palpable Masses, No Rebound, No Rigidity, No Guarding Musculoskeletal-Full Range of Motion Bilaterally, No CVAT Extremities-No Cyanosis, No Clubbing, No Edema Nuero-Cranial Nerves II-XII grossly intact, Motor WNL, DTRs WNL, Strength WNL, Non Focal Psych-Normal Mood (1) Diarrhea Diarrhea type: unspecified type Qualified Code(s): R19.7 - Diarrhea, unspecified
[2020-07-01] MEDS ORDERED: LIDOCAINE 1% LOCAL 20 ML VIAL ONE (13:19)
--- NOTE | 2020-07-01 13:20 | Pulmonary Consultation ---
Date of Consultation July 01, 2020 Assessment & Plan (1) Acute respiratory failure with hypoxia: CT chest 07/01/2020 personally reviewed: Large right-sided pleural effusion with atelectasis/collapse of the right lower lobe. Small left-sided pleural effusion Mediastinal shift to the left No mediastinal lymphadenopathy --Pleural effusion Large right-sided Never had effusion in the past Patient does not seem to have any cough Etiology could be infectious versus malignant Patient also has liver cirrhosis possibility of right-sided pleural effusion from cirrhosis without ascites is also there --Acute hypoxic respiratory failure Likely secondary to large right-sided pleural effusion Continue with O2 supplementation to keep oxygen saturation greater than 90% Plan: Given large pleural effusion and patient being thrombocytopenic I think it is better to put a chest tube in and drain fluid gradually over the next couple of days rather than put the patient under multiple procedures. PT/INR within normal limit platelets are greater than 50 Risk and benefit of the procedure explained to the patient Consent signed, witnessed and put in the chart We will proceed with right-sided pigtail catheter. Can start heparin drip after the catheter has been placed in. Please note the above document was generated using voice recognition software. It may contain grammatical, syntax or spelling errors.Any formal questions or concerns about the content, text or information contained within the body of th is dictation should be directly addressed to the provider for clarification. (2) Bilateral pleural effusion: (3) History of partial mastectomy of right breast: History of Present Illness History of Present Illness 75-year-old female with past medical history of alcoholic liver cirrhosis and recently diagnosed portal vein thrombosis presents to the ED with complaints of shortness of breath getting progressively worse since last 2 weeks. She was also complaining of diarrhea going on since last week or so. She also has history of breast cancer in 2017 s/p lumpectomy. Currently on tamoxifen Pulmonary were consulted because of large right-sided pleural effusion with mediastinal shift to the right and hypoxic respiratory failure At the time of examination patient seemed to be in respiratory distress. She was using accessory muscles of breathing. She denied any chest pain. Denied any headache, no nausea, no vomiting. She never had any issues with breathing before. Never had thoracentesis done in the past. Denies any fever or chills at home. No dysuria. No nausea or vomiting. In the ED patient was saturating in the 80s on room air but improved significantly on oxygen. Social history: Non-smoker Allergies Allergy/AdvReac Type Severity Reaction Status Date / Time Sulfa (Sulfonamide Allergy Unknown RASH Verified 07/01/20 10:29 Antibiotics) Home Medications Medication Instructions Recorded Confirmed Type acetaminophen [Tylenol] 650 mg PO QID PRN 02/02/20 07/01/20 History alendronate [Fosamax] 70 mg PO WK 02/02/20 07/01/20 History atorvastatin [Lipitor] 10 mg PO DAILY 02/02/20 07/01/20 History glipizide [Glucotrol XL] 10 mg PO DAILY 02/02/20 07/01/20 History lisinopril 10 mg PO DAILY 02/02/20 07/01/20 History magnesium oxide 400 mg PO DAILY 02/02/20 07/01/20 History metoprolol succinate [Toprol XL] 25 mg PO DAILY 02/02/20 07/01/20 History omeprazole 20 mg PO DAILY 02/02/20 07/01/20 History tamoxifen 20 mg PO DAILY 02/02/20 07/01/20 History cholecalciferol (vitamin D3) 50 mcg PO Q2D 07/01/20 07/01/20 History [Vitamin D3] quetiapine 50 mg PO HS 07/01/20 07/01/20 History Patient History Medical History (Updated 07/01/20 @ 13:56 by Sabrina Mills PA-C) Alcoholic cirrhosis of liver Breast cancer CKD (chronic kidney disease) CKD (chronic kidney disease), stage III CVA (cerebral vascular accident) Diabetes mellitus Esophageal 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 HTN (hypertension) PAD (peripheral artery disease) Pancytopenia Peripheral neuropathy Surgical History (Updated 07/01/20 @ 13:55 by Sabrina Mills PA-C) History of partial mastectomy of right breast Hx of cholecystectomy Family History Other Cirrhosis Dementia Social History Smoking Status: Never smoker Second Hand Exposure: No; Hx Alcohol Use: Yes Alcohol type: beer and wine Hx Substance Use: No Preferred Language: Vietnamese Communication Ability: Effective Nurse Case Management Required: No Beliefs That Will Affect Care: None Current Living Situation: Alone Feels Safe at Home: Yes Assistive Devices: Glasses, Hearing Aid - Bilateral, Hearing Aid - Left, Hearing Aid - Right and Walker Review of Systems Review of Systems: All systems reviewed & are unremarkable except as noted in HPI & below Physical Exam Physical Exam: Constitutional: In respiratory distress HEENT: EOMI, PERRLA Respiratory system: Decreased air entry on the right side, no wheeze, no rhonchi, no crackles CVS: S1-S2 positive, no murmurs or gallops Abdomen: Soft, nontender, nondistended, positive bowel sounds x4 Extremities: +2 pulses bilaterally radialis/ dorsalis pedis, no cyanosis, +2 pitting edema bilateral lower extremity Neuro: Awake alert oriented x3 Psych: Normal mood and affect G/U: No Lanza Skin: no rashes, warm and dry Lymphatic: no cervical or axillary lymphadenopathy Results & Data Results & Data ([facility]) Vital Signs (Past 12 Hours) Vital Signs Temp Pulse Pulse Resp BP BP Pulse Ox 07/01/20 12:00 99 H 20 142/76 H 99 07/01/20 10:40 101 H 31 H 97 07/01/20 10:36 98 H 31 H 160/81 H 100 07/01/20 10:34 109 H 20 97 07/01/20 10:20 97 H 30 H 100 07/01/20 10:10 96 H 32 H 100 07/01/20 10:00 100 H 33 H 160/81 H 100 07/01/20 09:50 101 H 24 99 07/01/20 09:48 104 H 21 178/67 H 98 07/01/20 09:47 105 H 21 85 L 07/01/20 09:30 99 H 26 H 100 07/01/20 09:26 97 H 22 99 07/01/20 09:20 102 H 29 H 100 07/01/20 09:10 98 H 22 100 07/01/20 09:01 101 H 25 H 99 07/01/20 08:59 101 H 24 140/76 99 07/01/20 08:58 94 H 23 99 07/01/20 08:57 95 H 24 140/76 99 07/01/20 08:41 36.7 C 108 H 20 168/73 H 91 07/01/20 09:20 07/01/20 09:20 PG Care Time/CCT Total # of Minutes Spent Total Time Spent with Patient: Total time spent is greater than 50% in coordination of care (as documented) at patient's floor/unit and/or counseling patient: Coding Level of Care Code 02295 Initial Inpt Care Lvl 3 Diagnoses Acute respiratory failure with hypoxia J96.01 Bilateral pleural effusion J90 History of partial mastectomy of right breast Z90.11
--- NOTE | 2020-07-01 14:48 | XRay Report ---
XR chest 1V portable HISTORY: 75 years-old Female S/P Thoracentesis status post right-sided thoracentesis COMPARISON: Chest radiograph and CTA chest studies of same day TECHNIQUE: Portable AP view of the chest FINDINGS: Mildly decreased size of the right pleural effusion status post placement of a pigtail pleural draina ge catheter projects over the right lung base. There is no pneumothorax. Persistent right lung base o pacities. Small left pleural effusion. Cardiac mediastinal and hilar silhouettes are unchanged. Degen erative changes of the shoulders and spine. Cholecystectomy. IMPRESSION: 1. Mildly decreased size of the right pleural effusion status post placement of a pleural drainage ca theter which projects over the right lung base. 2. Bibasilar atelectasis with small left pleural effusion. ACT 112: Negative or not required by law. The above report was generated using voice recognition software. It may contain grammatical, syntax o r spelling errors. Electronically signed by: Osorio Cabello M.D. 07/01/2020 2:47 PM
--- NOTE | 2020-07-01 15:00 | Gastrointestinal Consultation ---
Date of Consultation July 01, 2020 Assessment & Plan (1) Portal vein thrombosis: 75 year old female with ETOH cirrhosis, sober from ETOH admitted through the ED w/ large pleural effusion s/p chest tube placement. GI asked to evaluate for diarrhea and for pre-anticoagulate EGD. - check stool studies, c.diff and culture - Trend H&H - Monitor and document stools - Nonocclusive PVT no acute indication for anticoagulation - Will review imaging with attending and radiology for collaterals - Rule out hepatopulmonary syndrome with fluid studies - Arrange EGD once stable from pulmonary status unless there are acute changes - Hematology follow up Thank you for allowing us to participate in the care of this patient. Please call with any acute changes, questions or concerns. Please see addendum below with additional recommendation from my supervising physician. Supervising Physician Co-Signing Physician Notes Attending attestation I have seen, examined this patient, and agree with the findings and above by our mid-level provider CARLOS Barker, with the following additions: Patient admitted with diarrhea, shortness of breath and hypoxemia. Has a large right-sided pleural effusion in the setting of clinical cirrhosis. The differential diagnosis for hypoxemia would be a likely hepatic hydrothorax, potentially hepatopulmonary syndrome, intrinsic lung issues Agree with stool studies Appears well today Fluid studies to ensure no infection, and a transudate process. Likely warrants diuretics with Lasix and/or Aldactone to be started, follow fluid studies as well as output of this chest tube. But if this certainly is a hepatic hydrothorax, continuation of this as soon as possible would be indicated. Otherwise, this will continue to drain. Echocardiogram with bubble study is needed 2 g low-salt diet daily We will discuss with hematology the indication for anticoagulation in partial thrombosis. However given that she has a tube in place at this time. Would await initiation until discontinued. We will follow History of Present Illness Reason for Consultation: PVT Requesting Physician: Gene Attending Physician: Gene History of Present Illness 75 year old female with history of breast CA, T2DM, dyslipidemia, HTN, ETOH cirrhosis, CKD admitted through the ED for weakness, SOB and hypoxia worsening since April - admitted w/ large pleural effusions. GI asked to evaluate for diarrhea and for EGD pre anticoagulation. Pt was seen in the ED. Notes diarreah 3-4 episdoes daily without lactulose and 6-10 times daily with lactulose. Stools have been dark brown/black or brown. Most recently this week, stools have been brown. Denies any abd pain. no nausea, vomiting. No GERD. No dysphagia. CTAP 2020: Motion compromised examination.There is no evidence of central pulmonary embolus in the main or lobar pulmonary arteries. Segmental and subsegmental branches cannot be evaluated.There is a large right pleural effusion with complete atelectasis of the right lower lung and leftward shift of the mediastinum.There is a small left pleural effusion with left basilar atelectasis. Cirrhotic liver morphology. Splenomegaly, perisplenic varices, and a small volume of abdominopelvic ascites indicate portal hypertension.There is nonocclusive thrombus within the intrahepatic right and left lobe portal veins, the splenic vein, and the superior mesenteric vein.There is mild diffuse colonic wall thickening and edema with pericolonic infiltration. This could represent portal colopathy versus a nonspecific proctocolitis. Clinical correlation will be essential.Colonic diverticulosis without CT evidence of acute diverticulitis.There are numerous thoracolumbar compression deformity as above. These are age indeterminant but likely chronic. Clinical correlation will be required. Additional findings as above. ABD US 2020: Cirrhosis with nonocclusive thrombus within the left portal vein .SplenomegalyAscites Large right pleural effusion. EGD/colonoscopy Dr. Howard 2013: grade 1-2 esophageal varices,superficial right colon telagioectasias, no polyps, + extensive diverticulosis. Allergies Allergy/AdvReac Type Severity Reaction Status Date / Time Sulfa (Sulfonamide Allergy Unknown RASH Verified 07/01/20 10:29 Antibiotics) Home Medications Medication Instructions Recorded Confirmed Type acetaminophen [Tylenol] 650 mg PO QID PRN 02/02/20 07/01/20 History alendronate [Fosamax] 70 mg PO WK 02/02/20 07/01/20 History atorvastatin [Lipitor] 10 mg PO DAILY 02/02/20 07/01/20 History glipizide [Glucotrol XL] 10 mg PO DAILY 02/02/20 07/01/20 History lisinopril 10 mg PO DAILY 02/02/20 07/01/20 History magnesium oxide 400 mg PO DAILY 02/02/20 07/01/20 History metoprolol succinate [Toprol XL] 25 mg PO DAILY 02/02/20 07/01/20 History omeprazole 20 mg PO DAILY 02/02/20 07/01/20 History tamoxifen 20 mg PO DAILY 02/02/20 07/01/20 History cholecalciferol (vitamin D3) 50 mcg PO Q2D 07/01/20 07/01/20 History [Vitamin D3] quetiapine 50 mg PO HS 07/01/20 07/01/20 History Patient History Medical History (Updated 07/02/20 @ 09:18 by Isabel Escobar MD) Alcoholic cirrhosis of liver Breast cancer CKD (chronic kidney disease) CKD (chronic kidney disease), stage III CVA (cerebral vascular accident) Diabetes mellitus Esophageal 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 HTN (hypertension) PAD (peripheral artery disease) Pancytopenia Peripheral neuropathy Surgical History (Updated 07/01/20 @ 13:55 by Sabrina Mills PA-C) History of partial mastectomy of right breast Hx of cholecystectomy Family History Other Cirrhosis Dementia Social History Smoking Status: Never smoker Second Hand Exposure: No; Hx Alcohol Use: Yes Alcohol type: beer and wine Hx Substance Use: No Preferred Language: Bangladeshi Communication Ability: Effective Corrugator Required: No Beliefs That Will Affect Care: None Current Living Situation: Alone Feels Safe at Home: Yes Assistive Devices: Glasses, Hearing Aid - Bilateral, Hearing Aid - Left, Hearing Aid - Right and Walker Review of Systems Review of Systems: All systems reviewed & are unremarkable except as noted in HPI & below Physical Exam Constitutional: + ill appearing (chronically ill) and + thin; no acute distress Neck: trachea midline, no thyromegaly Respiratory: chest tubes in place and draining Cardiovascular: RRR, no murmur, no edema Gastrointestinal (Abdomen): normal bowel sounds, soft, nontender, no hepatosplenomegaly Skin: no rashes, warm and dry Results & Data ([facility]) Vital Signs (Past 12 Hours) Vital Signs Temp Pulse Pulse Resp BP BP Pulse Ox 07/01/20 14:00 108 H 33 H 132/97 07/01/20 12:00 99 H 20 142/76 H 99 07/01/20 10:40 101 H 31 H 97 07/01/20 10:36 98 H 31 H 160/81 H 100 07/01/20 10:34 109 H 20 97 07/01/20 10:20 97 H 30 H 100 07/01/20 10:10 96 H 32 H 100 07/01/20 10:00 100 H 33 H 160/81 H 100 07/01/20 09:50 101 H 24 99 07/01/20 09:48 104 H 21 178/67 H 98 07/01/20 09:47 105 H 21 85 L 07/01/20 09:30 99 H 26 H 100 07/01/20 09:26 97 H 22 99 07/01/20 09:20 102 H 29 H 100 07/01/20 09:10 98 H 22 100 07/01/20 09:01 101 H 25 H 99 07/01/20 08:59 101 H 24 140/76 99 07/01/20 08:58 94 H 23 99 07/01/20 08:57 95 H 24 140/76 99 07/01/20 08:41 36.7 C 108 H 20 168/73 H 91 Laboratory Results 07/01/20 07/01/20 07/01/20 Range/Units Unknown Unknown 14:48 WBC (4.8-10.8) K/uL RBC (4.2-5.4) M/uL Hgb (12.0-16.0) g/dL Hct (37-47) % MCV (80-100) fL MCH (25-34) pg MCHC (32-36) g/dL RDW Std Deviation (36.4-46.3) fL RDW Coeff of Davida (11.5-14.5) % Plt Count (130-400) K/uL MPV (7.4-10.4) fL Immature Gran % (Auto) % Neut % (Auto) % Lymph % (Auto) % Holmes % (Auto) % Eos % (Auto) % Baso % (Auto) % Neut # (Auto) (1.4-6.5) K/uL Lymph # (Auto) (1.2-3.4) K/uL Holmes # (Auto) (0.11-0.59) K/uL Eos # (Auto) (0-0.5) K/uL Baso # (Auto) (0-0.2) K/uL Immature Gran # (Auto) (0.00-0.02) K/uL Platelet Estimate (Normal) RBC Morphology PT INR APTT PTT Ratio Sodium (136-145) mmol/L Potassium (3.5-5.1) mmol/L Chloride (98-107) mmol/L Carbon Dioxide (21-32) mmol/L Anion Gap (3-11) BUN (7-18) mg/dl Creatinine (0.6-1.2) mg/dl Est Cr Clr Drug Dosing ml/min Est GFR ( Amer) Est GFR (Non-Af Amer) BUN/Creatinine Ratio (10-20) Glucose (70-99) mg/dl Calcium (8.5-10.1) mg/dl Total Bilirubin (0.2-1) mg/dl AST (15-37) U/L ALT (12-78) U/L Alkaline Phosphatase (45-117) U/L Lactate Dehydrogenase Pending Troponin I (0-0.045) ng/ml Total Protein (6.4-8.2) gm/dl Albumin (3.4-5.0) gm/dl Globulin (2.5-4.0) gm/dl Albumin/Globulin Ratio (0.9-2) Lipase (73-393) U/L Fluid Neutrophils % Fluid Lymphocytes % Fluid Eosinophils % Fluid Meso/Macro/Holmes % Fluid Comment Pleural Fluid Source Pleural Color Pleural Appearance Pleural pH Pleural WBC Pleural RBC Pleural Total Protein Pleural LDH Pleural Glucose Pleural Amylase Pleural Cholesterol COVID-19 Eval Order CovFluRsv at [facility] SARS-CoV-2 (PCR) NEGATIVE (Negative) Influenza Type A (PCR) Negative (Neg) Influenza Type B (PCR) Negative (Neg) RSV (RT-PCR) Negative (Neg) 07/01/20 07/01/20 07/01/20 Range/Units 14:48 14:48 14:06 WBC (4.8-10.8) K/uL RBC (4.2-5.4) M/uL Hgb (12.0-16.0) g/dL Hct (37-47) % MCV (80-100) fL MCH (25-34) pg MCHC (32-36) g/dL RDW Std Deviation (36.4-46.3) fL RDW Coeff of Davida (11.5-14.5) % Plt Count (130-400) K/uL MPV (7.4-10.4) fL Immature Gran % (Auto) % Neut % (Auto) % Lymph % (Auto) % Holmes % (Auto) % Eos % (Auto) % Baso % (Auto) % Neut # (Auto) (1.4-6.5) K/uL Lymph # (Auto) (1.2-3.4) K/uL Holmes # (Auto) (0.11-0.59) K/uL Eos # (Auto) (0-0.5) K/uL Baso # (Auto) (0-0.2) K/uL Immature Gran # (Auto) (0.00-0.02) K/uL Platelet Estimate (Normal) RBC Morphology PT Pending INR Pending APTT Pending PTT Ratio Pending Sodium (136-145) mmol/L Potassium (3.5-5.1) mmol/L Chloride (98-107) mmol/L Carbon Dioxide (21-32) mmol/L Anion Gap (3-11) BUN (7-18) mg/dl Creatinine (0.6-1.2) mg/dl Est Cr Clr Drug Dosing ml/min Est GFR ( Amer) Est GFR (Non-Af Amer) BUN/Creatinine Ratio (10-20) Glucose (70-99) mg/dl Calcium (8.5-10.1) mg/dl Total Bilirubin Pending (0.2-1) mg/dl AST (15-37) U/L ALT (12-78) U/L Alkaline Phosphatase (45-117) U/L Lactate Dehydrogenase Troponin I (0-0.045) ng/ml Total Protein Pending (6.4-8.2) gm/dl Albumin Pending (3.4-5.0) gm/dl Globulin (2.5-4.0) gm/dl Albumin/Globulin Ratio (0.9-2) Lipase (73-393) U/L Fluid Neutrophils % Fluid Lymphocytes % Fluid Eosinophils % Fluid Meso/Macro/Holmes % Fluid Comment Pleural Fluid Source Pleural Color Pleural Appearance Pleural pH Pleural WBC Pleural RBC Pleural Total Protein Pleural LDH Pleural Glucose Pleural Amylase Pleural Cholesterol Pending COVID-19 Eval Order SARS-CoV-2 (PCR) (Negative) Influenza Type A (PCR) (Neg) Influenza Type B (PCR) (Neg) RSV (RT-PCR) (Neg) 07/01/20 07/01/20 07/01/20 Range/Units 14:06 14:06 09:20 WBC (4.8-10.8) K/uL RBC (4.2-5.4) M/uL Hgb (12.0-16.0) g/dL Hct (37-47) % MCV (80-100) fL MCH (25-34) pg MCHC (32-36) g/dL RDW Std Deviation (36.4-46.3) fL RDW Coeff of Davida (11.5-14.5) % Plt Count (130-400) K/uL MPV (7.4-10.4) fL Immature Gran % (Auto) % Neut % (Auto) % Lymph % (Auto) % Holmes % (Auto) % Eos % (Auto) % Baso % (Auto) % Neut # (Auto) (1.4-6.5) K/uL Lymph # (Auto) (1.2-3.4) K/uL Holmes # (Auto) (0.11-0.59) K/uL Eos # (Auto) (0-0.5) K/uL Baso # (Auto) (0-0.2) K/uL Immature Gran # (Auto) (0.00-0.02) K/uL Platelet Estimate (Normal) RBC Morphology PT INR APTT PTT Ratio Sodium 143 (136-145) mmol/L Potassium 4.0 (3.5-5.1) mmol/L Chloride 111 H (98-107) mmol/L Carbon Dioxide 28 (21-32) mmol/L Anion Gap 4.0 (3-11) BUN 11 (7-18) mg/dl Creatinine 0.76 (0.6-1.2) mg/dl Est Cr Clr Drug Dosing 52.8 ml/min Est GFR ( Amer) 88.9 Est GFR (Non-Af Amer) 76.7 BUN/Creatinine Ratio 14.1 (10-20) Glucose 177 H (70-99) mg/dl Calcium 8.5 (8.5-10.1) mg/dl Total Bilirubin 1.1 H (0.2-1) mg/dl AST 21 (15-37) U/L ALT 21 (12-78) U/L Alkaline Phosphatase 75 (45-117) U/L Lactate Dehydrogenase Troponin I < 0.015 (0-0.045) ng/ml Total Protein 6.1 L (6.4-8.2) gm/dl Albumin 3.4 (3.4-5.0) gm/dl Globulin 2.7 (2.5-4.0) gm/dl Albumin/Globulin Ratio 1.3 (0.9-2) Lipase 89 (73-393) U/L Fluid Neutrophils % Pending Fluid Lymphocytes % Pending Fluid Eosinophils % Pending Fluid Meso/Macro/Holmes % Pending Fluid Comment Pleural Fluid Source Pending Pleural Color Pending Pleural Appearance Pending Pleural pH Pending Pleural WBC Pending Pleural RBC Pending Pleural Total Protein Pending Pleural LDH Pending Pleural Glucose Pending Pleural Amylase Pending Pleural Cholesterol COVID-19 Eval Order SARS-CoV-2 (PCR) (Negative) Influenza Type A (PCR) (Neg) Influenza Type B (PCR) (Neg) RSV (RT-PCR) (Neg) 07/01/20 Range/Units 09:20 WBC 2.70 L (4.8-10.8) K/uL RBC 3.73 L (4.2-5.4) M/uL Hgb 11.5 L (12.0-16.0) g/dL Hct 35.4 L (37-47) % MCV 94.9 (80-100) fL MCH 30.8 (25-34) pg MCHC 32.5 (32-36) g/dL RDW Std Deviation 54.1 H (36.4-46.3) fL RDW Coeff of Davida 15.6 H (11.5-14.5) % Plt Count 53 L (130-400) K/uL MPV 12.1 H (7.4-10.4) fL Immature Gran % (Auto) 0.4 % Neut % (Auto) 77.4 % Lymph % (Auto) 13.3 % Holmes % (Auto) 7.4 % Eos % (Auto) 1.1 % Baso % (Auto) 0.4 % Neut # (Auto) 2.09 (1.4-6.5) K/uL Lymph # (Auto) 0.36 L (1.2-3.4) K/uL Holmes # (Auto) 0.20 (0.11-0.59) K/uL Eos # (Auto) 0.03 (0-0.5) K/uL Baso # (Auto) 0.01 (0-0.2) K/uL Immature Gran # (Auto) 0.01 (0.00-0.02) K/uL Platelet Estimate Decreased L (Normal) RBC Morphology Unremarkable PT INR APTT PTT Ratio Sodium (136-145) mmol/L Potassium (3.5-5.1) mmol/L Chloride (98-107) mmol/L Carbon Dioxide (21-32) mmol/L Anion Gap (3-11) BUN (7-18) mg/dl Creatinine (0.6-1.2) mg/dl Est Cr Clr Drug Dosing ml/min Est GFR ( Amer) Est GFR (Non-Af Amer) BUN/Creatinine Ratio (10-20) Glucose (70-99) mg/dl Calcium (8.5-10.1) mg/dl Total Bilirubin (0.2-1) mg/dl AST (15-37) U/L ALT (12-78) U/L Alkaline Phosphatase (45-117) U/L Lactate Dehydrogenase Troponin I (0-0.045) ng/ml Total Protein (6.4-8.2) gm/dl Albumin (3.4-5.0) gm/dl Globulin (2.5-4.0) gm/dl Albumin/Globulin Ratio (0.9-2) Lipase (73-393) U/L Fluid Neutrophils % Fluid Lymphocytes % Fluid Eosinophils % Fluid Meso/Macro/Holmes % Fluid Comment Pleural Fluid Source Pleural Color Pleural Appearance Pleural pH Pleural WBC Pleural RBC Pleural Total Protein Pleural LDH Pleural Glucose Pleural Amylase Pleural Cholesterol COVID-19 Eval Order SARS-CoV-2 (PCR) (Negative) Influenza Type A (PCR) (Neg) Influenza Type B (PCR) (Neg) RSV (RT-PCR) (Neg)
[2020-07-01 15:03] LABS: Glucose Pleural Fluid 181 mg/dl
[2020-07-01 15:09] LABS: INR 1.3 (0.9-1.1); Partial Thromboplastin Time 25.1 Seconds (21.0-31.0); Prothrombin Time 12.6 Seconds (9.0-12.0)
[2020-07-01 15:20] LABS: Albumin Level 3.2 gm/dl (3.4-5.0)
[2020-07-01 15:22] LABS: Appearance Pleural Fluid HAZY; Color Pleural Fluid PALE YELLOW; RBC Pleural Fluid (A) < 3000 /uL; Source Pleural Fluid RIGHT LUNG; WBC Pleural Fluid (A) 300 /uL
--- NOTE | 2020-07-01 15:25 | Procedure Note ---
Procedure Note Date of Service July 01, 2020 Procedure: Pigtail chest tube insertion Help Desk Analyst: Dr. Isabel Escobar Indication: Large right-sided pleural effusion Consent: Signed by patient and verified with timeout prior to procedure Anesthesia: 1% lidocaine without epinephrine local Procedure: Consent was verified and timeout performed. Appropriate imaging studies were reviewed prior to the procedure. Patient was placed in a seated position. Appropriate site above the diaphragm on the right midaxillary line fourth intercostal space for chest tube insertion was selected. The skin was prepped and draped in normal sterile fashion. Lidocaine was used for local analgesia. Fluid was aspirated via the finder needle. A small skin rajiv was made with the scalpel and the catheter over the needle apparatus was advanced over the rib into the pleural space. With the help of guidewire and Seldinger technique, 14 Turkish pigtail catheter was inserted and connected to Pleur-evac. 1750 mL serous cloudy fluid was drained. No air leak appreciated after that. Chest x-ray to follow Fluid was sent for labs, culture and cytology. The patient tolerated the procedure without obvious complication Complications: None Blood loss: Less than 2 cc. Coding CPT Codes Pulmonary/Thoracic - Pulmonary and Thoracic: 12398 Tube thoracostomy ([id number]) Pulmonary/Thoracic - Pulmonary and Thoracic: 99045 Pleural drainage w/imaging ([id number]) [facility] [place] Codes (Charges) Pulmonary/Thoracic Procedure 1: Pulmonary and Thoracic: 80429 Tube thoracostomy Procedure 2: Pulmonary and Thoracic: 00271 Pleural drainage w/imaging
[2020-07-01 15:26] LABS: Amylase Pleural Fluid 30 U/L; LDH Pleural Fluid 57 U/L; Total Protein Pleural Fluid 1.4 g/dl
[2020-07-01] MEDS ORDERED: GLUCOSE 40% GEL 15 GM TUBE PO PRN (15:48)
[2020-07-01] MEDS ORDERED: ONDANSETRON INJ 2 MG/ML 2 ML VIAL IV PRN (15:48)
[2020-07-01] MEDS ORDERED: GLUCOSE 10 TABS/TUBE PO PRN (15:48)
[2020-07-01] MEDS ORDERED: POLYETHYLENE (MIRALAX) 17 GM PACK PO PRN (15:48)
[2020-07-01] MEDS ORDERED: DEXTROSE 50% 50 ML SYRINGE IV PRN (15:48)
[2020-07-01] MEDS ORDERED: CARBOHYDRATES FOR HYPOGLYCEMIA PO PRN (15:48)
[2020-07-01] MEDS ORDERED: GLUCAGON FOR INJ 1 MG VIAL SQ PRN (15:48)
[2020-07-01 15:51] LABS: Basophils, Fluid 0 %; Eosinophils, Fluid 0 %; Lymphocytes, Fluid 41 %; Mono,Macrophage,Mesothelial 52 %; Neutrophils, Fluid 7 %
[2020-07-01] MEDS: INSULIN ASPART 100 UNITS/ML 3 ML PEN SC SCH ×2 (17:00→20:13)
--- NOTE | 2020-07-01 17:10 | XRay Report ---
XR chest 1V portable CLINICAL HISTORY: chest tube dislodged COMPARISON STUDY: Chest CT and chest radiograph July 01, 2020. FINDINGS: Right pleural effusion has significantly decreased in size. There has been partial interval withdrawal of the right pleural catheter which is likely just within the right pleural space. Hazy r ight basilar opacity is noted. There is mild left basilar opacity. A small right apical pneumothorax with pleural separation of 9 mm is noted. There is mild pulmonary edema. Cholecystectomy clips are no homa. IMPRESSION: Partial interval withdrawal of the right pleural catheter, likely just within the right pleural space . Significant decrease in size of the right pleural effusion. Small right apical pneumothorax. ACT 112: Negative or not required by law. Electronically signed by: Gabino Rizvi M.D. 07/01/2020 5:08 PM
[2020-07-01] MEDS: QUEtiapine FUMARATE 25 MG TABLET PO SCH (20:10)
[2020-07-01] MEDS: ACETAMINOPHEN 325 MG TAB PO PRN (20:13)
[2020-07-02] MEDS: ACETAMINOPHEN 325 MG TAB PO PRN ×2 (02:14→20:24)
[2020-07-02 05:34] LABS: Hematocrit (blood only) 33.1 % (37-47); Hemoglobin 10.7 g/dL (12.0-16.0); Mean Corpuscular Hemoglobin 30.6 pg (25-34); Mean Corpuscular Hgb Conc 32.3 g/dL (32-36); Mean Corpuscular Volume 94.6 fL (80-100); RDW Coefficient of Variation 15.5 % (11.5-14.5); RDW Standard Deviation 54.1 fL (36.4-46.3); White Blood Count 2.18 K/uL (4.8-10.8)
[2020-07-02 05:42] LABS: INR 1.3 (0.9-1.1); Prothrombin Time 12.9 Seconds (9.0-12.0)
[2020-07-02 05:51] LABS: Mean Platelet Volume 11.2 fL (7.4-10.4); Platelet Count 52 K/uL (130-400)
--- NOTE | 2020-07-02 06:07 | Electrocardiogram Report ---
Test Reason : Blood Pressure : / mmHG Vent. Rate : 096 BPM Atrial Rate : 096 BPM P-R Int : 146 ms QRS Dur : 070 ms QT Int : 312 ms P-R-T Axes : 015 066 -13 degrees QTc Int : 394 ms Poor data quality, interpretation may be adversely affected Normal sinus rhythm Low voltage QRS Nonspecific T wave abnormality Abnormal ECG When compared with ECG of 02-FEB-2020 18:36, Nonspecific T wave abnormality, worse in Inferior leads Confirmed by Dmitri Macias ([id number]) on 07/02/2020 6:07:34 AM Referred By: Confirmed By:Dmitri Macias
[2020-07-02 06:09] LABS: Albumin Level 2.7 gm/dl (3.4-5.0); BUN Creatinine Ratio 17.9 (10-20); Calcium 8.2 mg/dl (8.5-10.1); Creatinine Clr Calc Pharmacy 42.7 ml/min; Est GFR (African American) 76.6; Est GFR (Non-African American) 66.1; Magnesium 1.5 mg/dl (1.8-2.4)
[2020-07-02 06:15] LABS: Albumin Globulin Ratio 1.2 (0.9-2); Bilirubin,Total 0.9 mg/dl (0.2-1); Globulin 2.2 gm/dl (2.5-4.0); Total Protein 4.9 gm/dl (6.4-8.2)
[2020-07-02] MEDS ORDERED: ALENDRONATE SODIUM 70 MG TAB PO SCH (06:30)
[2020-07-02] MEDS: lisinopril 10 MG TAB PO SCH (08:03)
[2020-07-02] MEDS: METOPROLOL SUCC 25MG EXT REL TAB PO SCH (08:03)
[2020-07-02] MEDS: ATORVASTATIN 10 MG TAB PO SCH (08:03)
[2020-07-02] MEDS: MAGNESIUM OXIDE 400 MG TAB PO SCH (08:03)
[2020-07-02] MEDS: TAMOXIFEN CITRATE 10 MG TABLET PO SCH (08:04)
[2020-07-02] MEDS: PANTOprazole 40 MG TAB PO SCH (08:04)
--- NOTE | 2020-07-02 08:10 | XRay Report ---
XR chest 1V portable CLINICAL HISTORY: f/u chest tube placement COMPARISON STUDY: Chest CT and chest radiograph July 01, 2020. FINDINGS: Right basilar pleural catheter is in place. A small right pneumothorax is unchanged. There are persistent small bilateral pleural effusions. Bibasilar opacities are noted. Left basilar opacity is increased with volume loss. Interstitial thickening persists. IMPRESSION: 1. Right basilar pleural catheter in place. No significant change in a small right apical pneumothora x. 2. Persistent small bilateral pleural effusions with stable right basilar opacity. Increasing left ba silar opacity which could reflect atelectasis or consolidation. ACT 112: Negative or not required by law. Electronically signed by: Gabino Rizvi M.D. 07/02/2020 8:08 AM
[2020-07-02] MEDS: INSULIN ASPART 100 UNITS/ML 3 ML PEN SC SCH ×4 (08:29→20:25)
--- NOTE | 2020-07-02 09:21 | Pulmonology Progress Note ---
Date of Service July 02, 2020 Assessment & Plan (1) Acute respiratory failure with hypoxia: CT chest 07/01/2020 personally reviewed: Large right-sided pleural effusion with atelectasis/collapse of the right lower lobe. Small left-sided pleural effusion Mediastinal shift to the left No mediastinal lymphadenopathy --Pleural effusion Large right-sided Never had effusion in the past Patient does not seem to have any cough Etiology could be infectious versus malignant Patient also has liver cirrhosis possibility of right-sided pleural effusion from cirrhosis without ascites is also there S/p pigtail catheter placement 07/01/2020, transudative as per lights criteria Pleural fluid: LDH 57, total protein 1.4, albumin 1.1, glucose 181, pleural pH 7.37 Serum: LDH 238, total protein 6.1, albumin 3.4 Serum albumin to pleural fluid albumin gradient is greater than 1.1, this likely represents hepatopulmonary effusion from underlying cirrhosis --Right-sided pneumothorax Likely from patient pulling the chest tube Small --Acute hypoxic respiratory failure Likely secondary to large right-sided pleural effusion Continue with O2 supplementation to keep oxygen saturation greater than 90% --Nonocclusive thrombus In the intrahepatic vein, superior mesenteric vein as well as splenic vein GI on board will defer anticoagulation to them. Plan: 400 mL already drained after unclamping the chest tube Keep the chest tube to -20 suction We will repeat chest x-ray in the morning. We will start the patient on incentive spirometry Please note the above document was generated using voice recognition software. It may contain grammatical, syntax or spelling errors.Any formal questions or concerns about the content, text or information contained within the body of this dictation should be directly addressed to the provider for clarification. (2) Bilateral pleural effusion: (3) History of partial mastectomy of right breast: (4) Pneumothorax: Admission and Anticipated Discharge Date Admission Date: July 01, 2020 Subjective Patient seen and examined at bedside. No acute distress, no adverse events overnight. Later last evening patient pulled on her chest tube. It was pulled but still in place. Actively draining Complains of mild chest pain at the site which is usually worse on coughing. Denies any nausea vomiting. Denies any abdominal pain. No headache, no dizziness Urinating well Review of Systems Review of Systems: All systems reviewed & are unremarkable except as noted in Subjective Physical Exam Physical Exam: Constitutional: In respiratory distress HEENT: EOMI, PERRLA Respiratory system: Decreased air entry bilaterally, no wheeze, no rhonchi, positive crackles bilateral lower lobes CVS: S1-S2 positive, no murmurs or gallops Abdomen: Soft, nontender, nondistended, positive bowel sounds x4 Extremities: +2 pulses bilaterally radialis/ dorsalis pedis, no cyanosis, +2 pitting edema bilateral lower extremity Neuro: Awake alert oriented x3 Psych: Normal mood and affect G/U: No Lanza Right-sided chest tube in place Skin: no rashes, warm and dry Lymphatic: no cervical or axillary lymphadenopathy Results & Data Results & Data ([facility]) Vital Signs (Past 12 Hours) Vital Signs Temp Pulse Pulse Resp BP BP Pulse Ox 07/02/20 08:50 90 96 07/02/20 08:44 92 H 23 128/63 98 07/02/20 08:42 96 H 07/02/20 08:16 94 H 24 98 07/02/20 08:00 36.7 C 07/02/20 07:44 88 21 127/53 L 99 07/02/20 07:00 90 22 98 07/02/20 06:10 95 H 23 97 07/02/20 06:00 98 H 20 97 07/02/20 05:50 96 H 20 96 07/02/20 05:44 96 H 20 123/50 L 96 07/02/20 05:40 98 H 25 H 96 07/02/20 05:30 101 H 20 96 07/02/20 05:20 87 22 98 07/02/20 05:10 93 H 23 98 07/02/20 05:00 86 20 99 07/02/20 04:50 96 H 24 100 07/02/20 04:44 88 26 H 131/53 L 97 07/02/20 04:40 89 24 98 07/02/20 04:30 88 22 98 07/02/20 04:20 88 20 96 07/02/20 04:10 92 H 27 H 97 07/02/20 04:00 88 22 96 07/02/20 03:50 90 22 98 07/02/20 03:44 91 H 21 107/46 L 96 07/02/20 03:40 89 19 96 07/02/20 03:30 88 23 96 07/02/20 03:20 36.6 C 90 90 28 H 103/50 L 96 07/02/20 03:18 92 H 25 H 103/50 L 97 07/02/20 03:10 90 21 96 07/02/20 03:00 91 H 26 H 96 07/02/20 02:50 92 H 22 97 07/02/20 02:44 91 H 23 105/44 L 97 07/02/20 02:40 92 H 20 96 07/02/20 02:30 90 18 96 07/02/20 02:20 93 H 22 97 07/02/20 02:10 96 H 23 96 07/02/20 02:00 97 H 22 95 07/02/20 01:50 93 H 20 96 07/02/20 01:44 91 H 23 107/46 L 96 07/02/20 01:40 99 H 22 98 07/02/20 01:30 93 H 20 97 07/02/20 01:20 97 H 19 97 07/02/20 01:10 92 H 25 H 96 07/02/20 01:00 92 H 29 H 97 07/02/20 00:50 95 H 23 97 07/02/20 00:43 92 H 25 H 102/44 L 96 07/02/20 00:40 92 H 19 97 07/02/20 00:30 103 H 22 97 07/02/20 00:20 95 H 24 97 07/02/20 00:10 94 H 25 H 97 07/02/20 00:00 95 H 24 97 07/01/20 23:50 93 H 24 97 07/01/20 23:43 94 H 30 H 100/46 L 96 07/01/20 23:40 93 H 20 97 07/01/20 23:36 36.8 C 07/01/20 23:30 95 H 25 H 97 07/01/20 23:20 94 H 26 H 97 07/01/20 23:10 94 H 27 H 96 07/01/20 23:00 95 H 24 96 07/01/20 22:50 104 H 21 96 07/01/20 22:44 108 H 22 88/44 L 96 07/01/20 22:40 94 H 34 H 95 07/01/20 22:30 92 H 42 H 96 07/01/20 22:20 97 H 25 H 96 07/01/20 22:10 101 H 21 96 07/01/20 22:00 99 H 25 H 97 07/01/20 21:50 97 H 26 H 95 07/01/20 21:47 97 H 24 92/36 L 95 07/01/20 21:45 105 H 23 88/47 L 95 07/01/20 21:44 96 H 18 74/43 L 97 07/01/20 21:40 95 H 27 H 97 07/01/20 21:30 93 H 29 H 95 07/01/20 21:20 94 H 23 95 07/02/20 05:24 07/02/20 05:24 PG Care Time/CCT Total # of Minutes Spent Total Time Spent with Patient: Total time spent is greater than 50% in coordination of care (as documented) at patient's floor/unit and/or counseling patient: Coding Level of Care Code 50306 Subseq Hosp Care Lvl 3 Diagnoses Acute respiratory failure with hypoxia J96.01 Bilateral pleural effusion J90 History of partial mastectomy of right breast Z90.11 Pneumothorax J93.9
--- NOTE | 2020-07-02 10:19 | Gastroenterology Progress Note ---
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 GI asked to evaluate for diarrhea and for pre-anticoagulate EGD. - negative cdiff - culture pending - Trend H&H - Monitor and document stools - Nonocclusive PVT no acute indication for anticoagulation - Will review imaging with attending and radiology for collaterals - Rule out hepatopulmonary syndrome with fluid studies - Arrange EGD once stable from pulmonary status unless there are acute changes Recall GI as needed. Thank you for allowing us to participate in the care of thi s patient. Please call with any acute changes, questions or concerns. Please see addendum below with additional recommendation from my supervising physician. Admission and Anticipated Discharge Date Admission Date: July 01, 2020 Supervising Physician Co-Signing Physician Notes Attending attestation I have seen, examined this patient, and agree with the findings and above by our mid-level provider CARLOS Barker, with the following additions: Improved today after placement of catheter Appears transudate of and likely hepatopulmonary syndrome. Would still obtain echocardiogram with agitated saline and/or contrast to exclude shunt including hepatopulmonary syndrome. Would start diuretics Pleural catheter management per pulmonary. Subjective Pt was seen and evaluated, chart reviewed. Admitted to the ICU. Denies new GI signs/symptoms No abdominal pain No nausea/vomiting. Chronic loose stools Denies black or bloody stools. Review of Systems Constitutional: + fatigue; no fever and no chills Respiratory: + dyspnea (improving); no cough Cardiovascular: + dyspnea; no chest pain and no chest pain at rest Gastrointestinal: + diarrhea/loose stools; no abdominal pain, no belching, no bloating, no nausea, no coffee ground emesis, no hematemesis, no dysphagia, no cramping and no blood in stools Physical Exam Constitutional: + ill appearing (chronically ill) and + thin; no acute distress Neck: trachea midline, no thyromegaly Cardiovascular: RRR, no murmur, no edema Gastrointestinal (Abdomen): normal bowel sounds, soft, nontender, no hepatosplenomegaly Skin: no rashes, warm and dry Results & Data ([facility]) Vital Signs (Past 12 Hours) Vital Signs Temp Pulse Pulse Resp BP BP Pulse Ox 07/02/20 08:50 90 96 07/02/20 08:44 92 H 23 128/63 98 07/02/20 08:42 96 H 07/02/20 08:16 94 H 24 98 07/02/20 08:00 36.7 C 07/02/20 07:44 88 21 127/53 L 99 07/02/20 07:00 90 22 98 07/02/20 06:10 95 H 23 97 07/02/20 06:00 98 H 20 97 07/02/20 05:50 96 H 20 96 07/02/20 05:44 96 H 20 123/50 L 96 07/02/20 05:40 98 H 25 H 96 07/02/20 05:30 101 H 20 96 07/02/20 05:20 87 22 98 07/02/20 05:10 93 H 23 98 07/02/20 05:00 86 20 99 07/02/20 04:50 96 H 24 100 07/02/20 04:44 88 26 H 131/53 L 97 07/02/20 04:40 89 24 98 07/02/20 04:30 88 22 98 07/02/20 04:20 88 20 96 07/02/20 04:10 92 H 27 H 97 07/02/20 04:00 88 22 96 07/02/20 03:50 90 22 98 07/02/20 03:44 91 H 21 107/46 L 96 07/02/20 03:40 89 19 96 07/02/20 03:30 88 23 96 07/02/20 03:20 36.6 C 90 90 28 H 103/50 L 96 07/02/20 03:18 92 H 25 H 103/50 L 97 07/02/20 03:10 90 21 96 07/02/20 03:00 91 H 26 H 96 07/02/20 02:50 92 H 22 97 07/02/20 02:44 91 H 23 105/44 L 97 07/02/20 02:40 92 H 20 96 07/02/20 02:30 90 18 96 07/02/20 02:20 93 H 22 97 07/02/20 02:10 96 H 23 96 07/02/20 02:00 97 H 22 95 07/02/20 01:50 93 H 20 96 07/02/20 01:44 91 H 23 107/46 L 96 07/02/20 01:40 99 H 22 98 07/02/20 01:30 93 H 20 97 07/02/20 01:20 97 H 19 97 07/02/20 01:10 92 H 25 H 96 07/02/20 01:00 92 H 29 H 97 07/02/20 00:50 95 H 23 97 07/02/20 00:43 92 H 25 H 102/44 L 96 07/02/20 00:40 92 H 19 97 07/02/20 00:30 103 H 22 97 07/02/20 00:20 95 H 24 97 07/02/20 00:10 94 H 25 H 97 07/02/20 00:00 95 H 24 97 07/01/20 23:50 93 H 24 97 07/01/20 23:43 94 H 30 H 100/46 L 96 07/01/20 23:40 93 H 20 97 07/01/20 23:36 36.8 C 07/01/20 23:30 95 H 25 H 97 07/01/20 23:20 94 H 26 H 97 07/01/20 23:10 94 H 27 H 96 07/01/20 23:00 95 H 24 96 07/01/20 22:50 104 H 21 96 07/01/20 22:44 108 H 22 88/44 L 96 07/01/20 22:40 94 H 34 H 95 07/01/20 22:30 92 H 42 H 96 07/01/20 22:20 97 H 25 H 96
[2020-07-02] MEDS: MAGNESIUM SULFATE / D5W 1 GM/100 ML BAG IV SCH ×2 (11:00→11:41)
--- NOTE | 2020-07-02 15:55 | Hospitalist Progress Note ---
Date of Service July 02, 2020 Assessment & Plan (1) Acute respiratory failure with hypoxia: (2) Bilateral pleural effusion: (3) Portal vein thrombosis: (4) Diarrhea: (5) Alcoholic cirrhosis of liver: (6) Breast cancer: (7) Pancytopenia: (8) Diabetes mellitus: (9) HTN (hypertension): (10) CKD (chronic kidney disease), stage III: Patient is a 75 yr female with H/O Alcohol liver cirrhosis with recently diagnosed portal vein thrombosis, pancytopenia, DM II, history of breast cancer in 2017 status post resection, on tamoxifen, CKD III, h/o CVA and other medical problems listed below who presents with progressive shortness of breath of the past 2 weeks who presents with acute hypoxic respiratory failure in the setting of bilateral pleural effusions. Acute hypoxic respiratory failure with Hypoxia Bilateral pleural effusions, R>L Bibasilar atelectasis Small right pneumothorax R/O hepatopulmonary syndrome -CT Chest: No PE, large right pleural effusion with complete atelectasis of the right lower lung and leftward shift of the mediastinum. There is a small left pleural effusion with left basilar atelectasis. -Transudative effusion as per light's criteria -S/P pigtail catheter placement on 07/01/20 -Appreciate pulmonology input -Obtain ECHO -Continue supplemental oxygen as needed -Repeat CXR in AM Portal vein thrombosis Alcohol liver cirrhosis Possible hepatopulmonary syndrome Recent follow-up with GI service with ultrasound revealed new portal vein thrombosis Scheduled for semiurgent EGD scheduled for 07/08 to rule out varices prior to starting anticoagulation -CT ABD:Cirrhotic liver morphology. Splenomegaly, perisplenic varices, and a small volume of abdominopelvic ascites indicate portal hypertension. There is nonocclusive thrombus within the intrahepatic right and left lobe portal veins, the splenic vein, and the superior mesenteric vein. There is mild diffuse colonic wall thickening and edema with pericolonic infiltration. This could represent portal colopathy versus a nonspecific proctocolitis. Clinical correlation will be essential. Colonic diverticulosis without CT evidence of acute diverticulitis. -Obtain echo Appreciate GI input -Low sodium diet -Consider starting anticoagulation when appropriate Diarrhea Stool studies negative Stool for C diff negative Monitor Volume status H/O Breast cancer Follows with Dr. Mar History of R invasive ductal carcinoma ER strongly positive, NV negative, her 2 Denisse negative Rx with Anastrozole Currently on Tamoxifen Pancytopenia Secondary to Malignancy, Cirrhosis monitor CBC Diabetes II A1c 6.3 in April 2020 Hold home agents SSI while in-patient BSG AC HS Hypertension Continue lisinopril, Toprol CKD III Monitor renal function Avoid nephrotoxic agents as able DVT Px: SCDs Code status: FULL ODE Disposition: PT/OT prior to discharge Admission and Anticipated Discharge Date Admission Date: July 01, 2020 Subjective Patient is seen and examined at bedside States dyspnea is improved Reports having some discomfort at the site of the catheter Also has diarrhea Denies any other complaints Review of Systems Review of Systems: All systems reviewed & are unremarkable except as noted in HPI & below Physical Exam Physical Exam: Physical Exam: Vitals signs as noted above General Appearance:Thin, frail, no apparent distress Head: normocephalic, Atraumatic Eyes: normal inspection, EOMI Neck: supple, Trachea midline Respiratory/Chest: Decreased right breath sounds, R basal crackles, +pigtail catheter placement, No accessory muscle use Cardiovascular: S1, S2, No murmur Abdomen/GI:Soft, Non tender, Bowel sounds present Extremities/Musculoskeletal:normal inspection, no edema Neurologic/Psych:AAOX3, grossly no focal neurological deficits Skin: normal color, warm Results & Data Results & Data ([facility]) Vital Signs (Past 12 Hours) Vital Signs Temp Pulse Resp BP Pulse Ox 07/02/20 15:38 84 07/02/20 14:13 88 21 113/56 L 93 07/02/20 11:44 92 H 23 117/55 L 91 07/02/20 10:44 37.2 C 83 21 108/65 99 07/02/20 10:00 82 24 99 07/02/20 09:44 80 21 102/52 L 99 07/02/20 08:50 90 96 07/02/20 08:44 92 H 23 128/63 98 07/02/20 08:42 96 H 07/02/20 08:16 94 H 24 98 07/02/20 08:00 36.7 C 07/02/20 07:44 88 21 127/53 L 99 07/02/20 07:00 90 22 98 07/02/20 06:10 95 H 23 97 07/02/20 06:00 98 H 20 97 07/02/20 05:50 96 H 20 96 07/02/20 05:44 96 H 20 123/50 L 96 07/02/20 05:40 98 H 25 H 96 07/02/20 05:30 101 H 20 96 07/02/20 05:20 87 22 98 07/02/20 05:10 93 H 23 98 07/02/20 05:00 86 20 99 07/02/20 04:50 96 H 24 100 07/02/20 04:44 88 26 H 131/53 L 97 07/02/20 04:40 89 24 98 07/02/20 04:30 88 22 98 07/02/20 04:20 88 20 96 07/02/20 04:10 92 H 27 H 97 07/02/20 04:00 88 22 96 07/02/20 03:50 90 22 98 07/02/20 03:44 91 H 21 107/46 L 96 Laboratory Results Short CBC 07/02/20 Range/Units 05:24 WBC 2.18 L (4.8-10.8) K/uL Hgb 10.7 L (12.0-16.0) g/dL Hct 33.1 L (37-47) % Plt Count 52 L (130-400) K/uL BMP 07/02/20 05:24 Sodium 144 Potassium 4.0 Chloride 111 H Carbon Dioxide 29 BUN 15 Creatinine 0.86 Glucose 145 H Calcium 8.2 L Liver Function 07/02/20 Range/Units 05:24 Total Bilirubin 0.9 (0.2-1) mg/dl AST 16 (15-37) U/L ALT 19 (12-78) U/L Alkaline Phosphatase 60 (45-117) U/L Albumin 2.7 L (3.4-5.0) gm/dl (1) Diarrhea Diarrhea type: unspecified type Qualified Code(s): R19.7 - Diarrhea, unspecified
[2020-07-02] MEDS: QUEtiapine FUMARATE 25 MG TABLET PO SCH (20:24)
[2020-07-03 07:42] LABS: Hematocrit (blood only) 34.3 % (37-47); Hemoglobin 11.1 g/dL (12.0-16.0); Mean Corpuscular Hemoglobin 30.7 pg (25-34); Mean Corpuscular Hgb Conc 32.4 g/dL (32-36); Mean Platelet Volume 12.8 fL (7.4-10.4); Platelet Count 59 K/uL (130-400); RDW Coefficient of Variation 15.6 % (11.5-14.5); RDW Standard Deviation 54.7 fL (36.4-46.3); Red Blood Count 3.61 M/uL (4.2-5.4); White Blood Count 2.38 K/uL (4.8-10.8)
[2020-07-03 08:07] LABS: Albumin Globulin Ratio 1.1 (0.9-2); Albumin Level 2.6 gm/dl (3.4-5.0); BUN Creatinine Ratio 24.5 (10-20); Bilirubin,Total 0.7 mg/dl (0.2-1); Calcium 8.5 mg/dl (8.5-10.1); Creatinine Clr Calc Pharmacy 36.3 ml/min; Est GFR (African American) 63.1; Est GFR (Non-African American) 54.4; Globulin 2.4 gm/dl (2.5-4.0); Magnesium 1.9 mg/dl (1.8-2.4); Potassium 3.9 mmol/L (3.5-5.1)
[2020-07-03] MEDS: PANTOprazole 40 MG TAB PO SCH (08:17)
[2020-07-03] MEDS: TAMOXIFEN CITRATE 10 MG TABLET PO SCH (08:17)
[2020-07-03] MEDS: ATORVASTATIN 10 MG TAB PO SCH (08:18)
[2020-07-03] MEDS: CHOLECALCIFEROL 1,000 UNITS 25 MCG TAB PO SCH (08:18)
[2020-07-03] MEDS: lisinopril 10 MG TAB PO SCH (08:18)
[2020-07-03] MEDS: MAGNESIUM OXIDE 400 MG TAB PO SCH (08:19)
[2020-07-03] MEDS: METOPROLOL SUCC 25MG EXT REL TAB PO SCH (08:30)
[2020-07-03] MEDS: ACETAMINOPHEN 325 MG TAB PO PRN ×2 (08:36→20:23)
[2020-07-03] MEDS: INSULIN ASPART 100 UNITS/ML 3 ML PEN SC SCH ×4 (08:45→20:10)
--- NOTE | 2020-07-03 09:18 | XRay Report ---
XR chest 1V portable CLINICAL HISTORY: f/u COMPARISON STUDY: Chest CT July 01, 2020. Chest radiograph July 02, 2020. FINDINGS: A right basilar pleural pigtail catheter remains in place. Small right pneumothorax has dec reased in size since prior exam. There is mild pulmonary edema. Left pleural effusion has slightly in creased. Left basilar opacity is increased. Right basilar opacity has improved. IMPRESSION: 1. Right basilar pleural pigtail catheter in place. Interval decrease in size of the small right apic al pneumothorax. 2. Increased in size of a small to moderate left pleural effusion. Increase in left basilar opacity w hich may reflect atelectasis or consolidation. 3. Improving right lower lung opacity. ACT 112: Negative or not required by law. Electronically signed by: Gabino Rizvi M.D. 07/03/2020 9:16 AM
--- NOTE | 2020-07-03 10:05 | Anesthesiology Consultation ---
Date of Service July 03, 2020 History Height/Weight Height: 5 ft 1 in Weight: 54.2 kg Allergies Allergy/AdvReac Type Severity Reaction Status Date / Time Sulfa (Sulfonamide Allergy Unknown RASH Verified 07/01/20 10:29 Antibiotics) Medications Home Medications Medication Instructions Recorded Confirmed Last Taken acetaminophen [Tylenol] 650 mg PO QID PRN 02/02/20 07/01/20 Unknown alendronate [Fosamax] 70 mg PO WK 02/02/20 07/01/20 06/25/20 atorvastatin [Lipitor] 10 mg PO DAILY 02/02/20 07/01/20 06/30/20 glipizide [Glucotrol XL] 10 mg PO DAILY 02/02/20 07/01/20 07/01/20 lisinopril 10 mg PO DAILY 02/02/20 07/01/20 07/01/20 magnesium oxide 400 mg PO DAILY 02/02/20 07/01/20 06/30/20 metoprolol succinate [Toprol XL] 25 mg PO DAILY 02/02/20 07/01/20 06/30/20 omeprazole 20 mg PO DAILY 02/02/20 07/01/20 07/01/20 tamoxifen 20 mg PO DAILY 02/02/20 07/01/20 07/01/20 cholecalciferol (vitamin D3) 50 mcg PO Q2D 07/01/20 07/01/20 Unknown [Vitamin D3] quetiapine 50 mg PO HS 07/01/20 07/01/20 06/30/20 Active Medications Generic Name Dose Route Start Last Admin Trade Name Freq PRN Reason Stop Dose Admin Acetaminophen 650 mg 07/01/20 15:48 07/03/20 08:36 Acetaminophen 325 Mg Tab PO 07/31/20 15:47 650 mg Q4H PRN Administration Pain or Fever Alendronate Sodium 70 mg 07/02/20 06:30 07/02/20 05:36 Alendronate Sodium 70 Mg Tab PO 08/01/20 06:29 70 mg Tu@0630 KEYSHA Administration Atorvastatin Calcium 10 mg 07/02/20 09:00 07/03/20 08:18 Atorvastatin 10 Mg Tab PO 08/01/20 08:59 10 mg DAILY KEYSHA Administration Insulin Aspart 0 units 07/01/20 16:30 07/03/20 08:45 Insulin Aspart 100 Units/Ml 3 Ml Pen SC 07/31/20 16:29 6 units ACHS KEYSHA Administration Lisinopril 10 mg 07/02/20 09:00 07/03/20 08:18 Lisinopril 10 Mg Tab PO 08/01/20 08:59 10 mg DAILY KEYSHA Administration Magnesium Oxide 400 mg 07/02/20 09:00 07/03/20 08:19 Magnesium Oxide 400 Mg Tab PO 08/01/20 08:59 400 mg DAILY KEYSHA Administration Metoprolol Succinate 25 mg 07/02/20 09:00 07/03/20 08:30 Metoprolol Succ 25mg Ext Rel Tab PO 08/01/20 08:59 25 mg DAILY KEYSHA Administration Pantoprazole Sodium 40 mg 07/02/20 09:00 07/03/20 08:17 Pantoprazole 40 Mg Tab PO 08/01/20 08:59 40 mg DAILY KEYSHA Administration Protocol Quetiapine Fumarate 50 mg 07/01/20 21:00 07/02/20 20:24 Quetiapine Fumarate 25 Mg Tablet PO 07/31/20 20:59 50 mg HS KEYSHA Administration Tamoxifen Citrate 20 mg 07/02/20 09:00 07/03/20 08:17 Tamoxifen Citrate 10 Mg Tablet PO 08/01/20 08:59 20 mg DAILY KEYSHA Administration Vitamin D 2,000 units 07/03/20 09:00 07/03/20 08:18 Cholecalciferol 1,000 Units 25 Mcg Tab PO 08/02/20 08:59 2,000 units Q2D@0900 KEYSHA Administration Past Medical History Medical History Alcoholic cirrhosis of liver Breast cancer CKD (chronic kidney disease) CKD (chronic kidney disease), stage III CVA (cerebral vascular accident) Diabetes mellitus Esophageal 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 HTN (hypertension) PAD (peripheral artery disease) Pancytopenia Peripheral neuropathy Past Family History Family History Other Cirrhosis Dementia Past Surgical History Surgical History History of partial mastectomy of right breast Hx of cholecystectomy Social History Smoking Status: Never smoker Do You Dip or Chew Tobacco: No Hx Alcohol Use: Yes Alcohol type: beer and wine alcohol intake frequency: other Alcohol Intake Frequency Comment: Quit drinking 10 years ago; moderate up til then. Hx Substance Use: No substance use type: does not use Physical Exam Vital Signs Last Vital Signs Temp 37.0 C 07/03/20 03:57 Pulse 104 H 07/03/20 08:49 Resp 22 07/03/20 08:25 BP 129/57 L 07/03/20 08:25 Pulse Ox 97 07/03/20 08:25 Testing Laboratory Results 07/03/20 06:48 07/03/20 06:48 PT 12.9 Seconds (9.0-12.0) H 07/02/20 05:24 INR 1.3 (0.9-1.1) H 07/02/20 05:24 APTT 25.1 Seconds (21.0-31.0) 07/01/20 14:48 07/01/20 14:06 Acid Fast Bacilli Smear - Final Pleural Fluid 07/01/20 16:40 Escherichia coli Shiga Toxins Test - Preliminary Stool Stool Culture - Preliminary No Salmonella isolated to date, No Shigella isolated to date, No Campylobacter jejuni isolated to date. 07/01/20 14:06 Gram Stain - Final Pleural Fluid Aerobic and Anaerobic Culture - Preliminary No growth to date. 07/03/20 07:19 POC Glucose 208 H Electrocardiogram Date: 07/01/20 Findings: + NSR @ (54)
--- NOTE | 2020-07-03 11:48 | Hospitalist Progress Note ---
Date of Service July 03, 2020 Assessment & Plan (1) Acute respiratory failure with hypoxia: (2) Bilateral pleural effusion: (3) Portal vein thrombosis: (4) Diarrhea: (5) Alcoholic cirrhosis of liver: (6) Breast cancer: (7) Pancytopenia: (8) Diabetes mellitus: (9) HTN (hypertension): (10) CKD (chronic kidney disease), stage III: Acute hypoxic respiratory failure with Hypoxia Bilateral pleural effusions, R>L Bibasilar atelectasis Small right pneumothorax -CT Chest: No PE, large right pleural effusion with complete atelectasis of the right lower lung and leftward shift of the mediastinum. There is a small left pleural effusion with left basilar atelectasis. -Transudative effusion as per light's criteria Fluid pathology negative for malignancy Effusion likely due to cirrhosis without ascites -S/P pigtail catheter placement on 07/01/20 -Recovery Engineer on board. Appreciate recommendations -Echo reviewed. No left to right shunt/regional wall motion abnormality noted. Normal EF -Continue incentive spirometry. Wean off oxygen -Repeat CXR this AM show reduction in pneumothorax, some increase in left pleural effusion Patient will need initiation of diuretics Will hold starting today due to low blood pressures Portal vein thrombosis Alcohol liver cirrhosis Recent follow-up with GI service with ultrasound revealed new portal vein thrombosis Scheduled for semiurgent EGD scheduled for 07/08 to rule out varices prior to starting anticoagulation -CT ABD:Cirrhotic liver morphology. Splenomegaly, perisplenic varices, and a small volume of abdominopelvic ascites indicate portal hypertension. There is nonocclusive thrombus within the intrahepatic right and left lobe portal veins, the splenic vein, and the superior mesenteric vein. There is mild diffuse colonic wall thickening and edema with pericolonic infiltration. This could represent portal colopathy versus a nonspecific proctocolitis. Clinical correlation will be essential. Colonic diverticulosis without CT evidence of acute diverticulitis. -Echo noted -Discussed with Customer Counter Associate Dr Allen. Can start diuretics once able. Recommended holding off anticoagulation for now till outpatient EGD Diarrhea No diarrhea today Stool studies negative Stool for C diff negative Monitor Volume status H/O Breast cancer Follows with Dr. Mar History of R invasive ductal carcinoma ER strongly positive, SC negative, her 2 Denisse negative Rx with Anastrozole Currently on Tamoxifen Pancytopenia Secondary to Malignancy, Cirrhosis Monitor CBC Diabetes II A1c 6.3 in April 2020 Hold home agents SSI while in-patient BSG AC HS Hypertension Hypotensive today Hold lisinopril and monitor Continue Toprol CKD III Monitor renal function Avoid nephrotoxic agents as able DVT Px: Hep sq for now Anticoagulation for PVT will wait till EGD per GI recs Code status: FULL CODE Disposition: Plan to dc home once stable Admission and Anticipated Discharge Date Admission Date: July 01, 2020 Subjective 75-year-old woman with alcoholic liver cirrhosis, recently diagnosed portal vein thrombosis, pancytopenia, DM type II, history of breast cancer status post resection and tamoxifen, CKD 3, CVA who presented with progressive shortness of breath over 2-week period. Being managed for acute hypoxic respiratory failure in the setting of bilateral pleural effusions. Status post right pleural catheter placement by pulmonology. Patient seen and examined this morning. Complains of only pain at the catheter site today. Reports that shortness of breath is improved. No bowel movement today yet Review of Systems Constitutional: + fatigue; no fever and no chills Eyes: no problem reported Ear, Nose, Mouth, Throat: no problem reported Respiratory: + dyspnea Cardiovascular: + chest pain (At the catheter site) and + edema (Improving); no palpitations Gastrointestinal: no abdominal pain, no nausea and no vomiting Genitourinary: no dysuria, no difficulty urinating and no urinary frequency Neurologic: no tremor(s), no headache(s) and no confusion Psychiatric: no depression and no anxiety Physical Exam Constitutional: + well hydrated; no acute distress Eyes: PERRL, conjunctivae normal, anicteric sclerae ENMT: external ear and nose normal, oropharynx normal Respiratory: Reduced breath sounds lung bases, right basilar crackles. Right pleural catheter draining serous fluid Cardiovascular: Rate/Rhythm: regular rate and regular rhythm S1-S2 Gastrointestinal (Abdomen): normal bowel sounds, soft, nontender, no hepatosplenomegaly Musculoskeletal: +2 pedal edema bilaterally Neurologic: PERRL, EOMI, accommodation nl, no face palsy, no dysarthria Psychiatric: A+Ox3, euthymic affect Results & Data Results & Data ([facility]) Vital Signs (Past 12 Hours) Vital Signs Temp Pulse Pulse Resp BP BP Pulse Ox 07/03/20 08:49 104 H 07/03/20 08:25 96 H 22 129/57 L 97 07/03/20 03:57 37.0 C 80 18 92/42 L 95 07/03/20 01:03 96/58 L 07/03/20 00:00 79 Laboratory Results Laboratory Results - last 24 hr 07/02/20 07/02/20 07/03/20 16:42 20:23 06:48 WBC 2.38 L RBC 3.61 L Hgb 11.1 L Hct 34.3 L MCV 95.0 MCH 30.7 MCHC 32.4 RDW Std Deviation 54.7 H RDW Coeff of Davida 15.6 H Plt Count 59 L MPV 12.8 H Sodium Potassium Chloride Carbon Dioxide Anion Gap BUN Creatinine Est Cr Clr Drug Dosing Est GFR ( Amer) Est GFR (Non-Af Amer) BUN/Creatinine Ratio Glucose POC Glucose 197 H 180 H Calcium Magnesium Total Bilirubin AST ALT Alkaline Phosphatase Total Protein Albumin Globulin Albumin/Globulin Ratio 07/03/20 07/03/20 07/03/20 06:48 07:19 11:18 WBC RBC Hgb Hct MCV MCH MCHC RDW Std Deviation RDW Coeff of Davida Plt Count MPV Sodium 142 Potassium 3.9 Chloride 109 H Carbon Dioxide 27 Anion Gap 6.0 BUN 25 H D Creatinine 1.01 Est Cr Clr Drug Dosing 36.3 Est GFR ( Amer) 63.1 Est GFR (Non-Af Amer) 54.4 BUN/Creatinine Ratio 24.5 H Glucose 170 H POC Glucose 208 H 176 H Calcium 8.5 Magnesium 1.9 Total Bilirubin 0.7 AST 18 ALT 15 Alkaline Phosphatase 61 Total Protein 5.0 L Albumin 2.6 L Globulin 2.4 L Albumin/Globulin Ratio 1.1 (1) Diarrhea Diarrhea type: unspecified type Qualified Code(s): R19.7 - Diarrhea, unspecified
--- NOTE | 2020-07-03 14:55 | Pulmonology Progress Note ---
Date of Service July 03, 2020 Assessment & Plan (1) Acute respiratory failure with hypoxia: CT chest 07/01/2020 personally reviewed: Large right-sided pleural effusion with atelectasis/collapse of the right lower lobe. Small left-sided pleural effusion Mediastinal shift to the left No mediastinal lymphadenopathy --Pleural effusion Large right-sided Never had effusion in the past Likely hepatopulmonary effusion coming from cirrhosis Cytology is negative for malignancy S/p pigtail catheter placement 07/01/2020, transudative as per lights criteria Pleural fluid: LDH 57, total protein 1.4, albumin 1.1, glucose 181, pleural pH 7.37 Serum: LDH 238, total protein 6.1, albumin 3.4 Serum albumin to pleural fluid albumin gradient is greater than 1.1, this likely represents hepatopulmonary effusion from underlying cirrhosis --Right-sided pneumothorax Likely from patient pulling the chest tube Small --Acute hypoxic respiratory failure Likely secondary to large right-sided pleural effusion Continue with O2 supplementation to keep oxygen saturation greater than 90% --Nonocclusive thrombus In the intrahepatic vein, superior mesenteric vein as well as splenic vein GI on board will defer anticoagulation to them. Plan: Chest tube level is 300. Crease the chest tube suction to -40 Chest x-ray showing still a small apical pneumothorax it has decreased in size compared to yesterday Recommend starting the patient on Lasix and possibly spironolactone for the underlying liver cirrhosis that she has. Based on the chest x-ray tomorrow we will decide whether we can disconnect the suction. Please note the above document was generated using voice recognition software. It may contain grammatical, syntax or spelling errors.Any formal questions or concerns about the content, text or information contained within the body of this dictation should be directly addressed to the provider for clarification. (2) Bilateral pleural effusion: (3) History of partial mastectomy of right breast: (4) Pneumothorax: Admission and Anticipated Discharge Date Admission Date: July 01, 2020 Subjective Patient seen and examined at bedside. No acute distress, no adverse events overnight. Right-sided pigtail catheter in place. Denies any shortness of breath. Does complain of mild chest tenderness at the site of the chest tube. No cough. No fever or chills. Fair appetite. Review of Systems Review of Systems: All systems reviewed & are unremarkable except as noted in Subjective Physical Exam Physical Exam: Constitutional: Not in acute distress HEENT: EOMI, PERRLA Respiratory system: Decreased air entry bilaterally, no wheeze, no rhonchi, positive crackles bilateral lower lobes CVS: S1-S2 positive, no murmurs or gallops Abdomen: Soft, nontender, nondistended, positive bowel sounds x4 Extremities: +2 pulses bilaterally radialis/ dorsalis pedis, no cyanosis, + 1 pitting edema bilateral lower extremity Neuro: Awake alert oriented x3 Psych: Normal mood and affect G/U: No Lanza Right-sided chest tube in place Skin: no rashes, warm and dry Lymphatic: no cervical or axillary lymphadenopathy Results & Data Results & Data ([facility]) Vital Signs (Past 12 Hours) Vital Signs Temp Pulse Pulse Resp BP BP Pulse Ox 07/03/20 12:48 37.3 C 90 19 81/47 L 89/51 L 96 07/03/20 08:49 104 H 07/03/20 08:25 96 H 22 129/57 L 97 07/03/20 03:57 37.0 C 80 18 92/42 L 95 07/03/20 06:48 07/03/20 06:48 PG Care Time/CCT Total # of Minutes Spent Total Time Spent with Patient: Total time spent is greater than 50% in coordination of care (as documented) at patient's floor/unit and/or counseling patient: Coding Level of Care Code 86232 Subseq Hosp Care Lvl 3 Diagnoses Acute respiratory failure with hypoxia J96.01 Bilateral pleural effusion J90 History of partial mastectomy of right breast Z90.11 Pneumothorax J93.9
[2020-07-03] MEDS ORDERED: Nursing to Pharmacy Communication SCH (18:00)
[2020-07-03] MEDS ORDERED: ALBUMIN 5% 250 ML IV ONE (18:05)
[2020-07-03] MEDS ORDERED: MIDODRINE HCL 2.5 MG TAB PO ONE (18:09)
[2020-07-03] MEDS: HEPARIN SOD 5,000 UNIT/0.5 ML VIAL SQ SCH ×2 (20:09→20:20)
[2020-07-03] MEDS: QUEtiapine FUMARATE 25 MG TABLET PO SCH (20:10)
[2020-07-04 07:00] LABS: Albumin Level 2.5 gm/dl (3.4-5.0); BUN Creatinine Ratio 29.5 (10-20); Calcium 8.6 mg/dl (8.5-10.1); Creatinine Clr Calc Pharmacy 33.7 ml/min; Est GFR (African American) 57.5 ml/min; Est GFR (Non-African American) 49.6 ml/min; Magnesium 1.9 mg/dl (1.8-2.4); Potassium 3.9 mmol/L (3.5-5.1)
[2020-07-04 07:01] LABS: Hematocrit (blood only) 32.4 % (37-47); Hemoglobin 10.1 g/dL (12.0-16.0); Mean Corpuscular Hemoglobin 30.1 pg (25-34); Mean Corpuscular Hgb Conc 31.2 g/dL (32-36); Mean Corpuscular Volume 96.4 fL (80-100); Mean Platelet Volume 12.2 fL (7.4-10.4); Platelet Count 60 K/uL (130-400); RDW Coefficient of Variation 15.4 % (11.5-14.5); RDW Standard Deviation 54.9 fL (36.4-46.3); Red Blood Count 3.36 M/uL (4.2-5.4); White Blood Count 1.67 K/uL (4.8-10.8)
[2020-07-04 07:04] LABS: Albumin Globulin Ratio 1.1 (0.9-2); Bilirubin,Total 0.6 mg/dl (0.2-1); Globulin 2.2 gm/dl (2.5-4.0); Phosphorus 2.9 mg/dl (2.5-4.9); Total Protein 4.7 gm/dl (6.4-8.2)
[2020-07-04] MEDS: INSULIN ASPART 100 UNITS/ML 3 ML PEN SC SCH ×4 (08:22→20:47)
[2020-07-04] MEDS: PANTOprazole 40 MG TAB PO SCH (08:24)
[2020-07-04] MEDS: METOPROLOL SUCC 25MG EXT REL TAB PO SCH (08:24)
[2020-07-04] MEDS: ATORVASTATIN 10 MG TAB PO SCH (08:25)
[2020-07-04] MEDS: MAGNESIUM OXIDE 400 MG TAB PO SCH (08:25)
--- NOTE | 2020-07-04 08:31 | XRay Report ---
XR chest 1V portable CLINICAL HISTORY: f/u COMPARISON STUDY: Chest CT July 01, 2020. Chest radiograph July 03, 2020. FINDINGS: Right basilar pleural catheter is in place. A small right apical pneumothorax has slightly decreased in size. Mild interstitial thickening persists. Right basilar opacity is unchanged. Left lo wer lung airspace opacity with volume loss is again noted. A small to moderate left pleural effusion is present. There is no left pneumothorax. Patient is rotated. IMPRESSION: 1. Right basilar pleural catheter in place. Slight decrease in size of a small right apical pneumotho rax. 2. Persistent left lower lung airspace opacity with volume loss. This may reflect left lower lobe ate lectasis or consolidation. 3. Slight decrease in a left pleural effusion. ACT 112: Negative or not required by law. Electronically signed by: Gabino Rizvi M.D. 07/04/2020 8:30 AM
[2020-07-04] MEDS: TAMOXIFEN CITRATE 10 MG TABLET PO SCH (09:00)
--- NOTE | 2020-07-04 09:28 | Gastroenterology Progress Note ---
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 GI asked to evaluate for diarrhea and for pre-anticoagulate EGD. - negative cdiff - culture negative - Nonocclusive PVT no acute indication for anticoagulation - Start low dose diuretics - Lasix 20-40 mg daily - Aldactone 25-50 mg daily - Close monitor BP - Educated on low salt diet - Will need dietary consultation as she notes high sodium intake - Arrange EGD once stable from pulmonary status and continue with OP plan per primary GI Recall GI as needed. Thank you for allowing us to participate in the care of this patient. Please call with any acute changes, questions or concerns. Please see addendum below with additional recommendation from my supervising physician. Admission and Anticipated Discharge Date Admission Date: July 01, 2020 Supervising Physician Co-Signing Physician Notes Attending attestation I have seen, examined this patient, and agree with the findings and above by our mid-level provider Ms. Neeta GONZALEZ, with the following additions: - Patient doing well, going to start low dose diuretics today - Eval for possible EGD tomorrow pending CT removal Subjective Pt was seen and evaluated, chart reviewed No GI concerns this AM Feeling well No abd pain, nausea, vomiting, diarrhea/constipation Review of Systems Review of Systems: All systems reviewed & are unremarkable except as noted in HPI & below Physical Exam Constitutional: WD/WN, vitals as above well nourished; no acute distress Neck: trachea midline, no thyromegaly Respiratory: normal respiratory effort; no respiratory distress Cardiovascular: Rate/Rhythm: regular rate and regular rhythm Gastrointestinal (Abdomen): normal bowel sounds, soft, nontender, no hepatosplenomegaly Skin: no rashes, warm and dry Results & Data ([facility]) Vital Signs (Past 12 Hours) Vital Signs Temp Pulse Pulse Resp BP BP Pulse Ox 07/04/20 07:28 36.5 C 82 17 105/61 96 07/04/20 03:22 36.9 C 73 20 102/59 L 96 07/03/20 23:38 82 07/03/20 23:28 36.4 C L 82 20 108/54 L 90
[2020-07-04] MEDS: HEPARIN SOD 5,000 UNIT/0.5 ML VIAL SQ SCH ×2 (12:00→20:36)
[2020-07-04] MEDS ORDERED: SPIRONOLACTONE 25 MG TAB PO ONE (12:41)
[2020-07-04] MEDS ORDERED: FUROSEMIDE 20 MG TAB PO ONE (12:41)
--- NOTE | 2020-07-04 12:45 | Hospitalist Progress Note ---
Date of Service July 04, 2020 Assessment & Plan (1) Acute respiratory failure with hypoxia: (2) Bilateral pleural effusion: (3) Portal vein thrombosis: (4) Diarrhea: (5) Alcoholic cirrhosis of liver: (6) Breast cancer: (7) Pancytopenia: (8) Diabetes mellitus: (9) HTN (hypertension): (10) CKD (chronic kidney disease), stage III: Acute hypoxic respiratory failure with Hypoxia Bilateral pleural effusions, R>L Bibasilar atelectasis Small right pneumothorax -CT Chest: No PE, large right pleural effusion with complete atelectasis of the right lower lung and leftward shift of the mediastinum. There is a small left pleural effusion with left basilar atelectasis. -Transudative effusion as per light's criteria Fluid pathology negative for malignancy Effusion /hydrothorax likely due to cirrhosis without ascites -S/P pigtail catheter placement on 07/01/20 -Bag Patcher on board. Appreciate recommendations -Echo reviewed. No left to right shunt/regional wall motion abnormality noted. Normal EF -Continue incentive spirometry. Start low dose diuretic - lasix 20 and aldactone 25 Continue pleural catheter drainage. Discuss with Bag Patcher. Will do water seal today and plan to clamp tomorrow Wean off oxygen as tolerated Portal vein thrombosis Alcohol liver cirrhosis Recent follow-up with GI service with ultrasound revealed new portal vein thrombosis Scheduled for semiurgent EGD scheduled for 07/08 to rule out varices prior to starting anticoagulation -CT ABD:Cirrhotic liver morphology. Splenomegaly, perisplenic varices, and a small volume of abdominopelvic ascites indicate portal hypertension. There is nonocclusive thrombus within the intrahepatic right and left lobe portal veins, the splenic vein, and the superior mesenteric vein. There is mild diffuse colonic wall thickening and edema with pericolonic infiltration. This could represent portal colopathy versus a nonspecific proctocolitis. Clinical correlation will be essential. Colonic diverticulosis without CT evidence of acute diverticulitis. -Echo noted -Discussed with Tuft Machine Operator Dr Allen. May get EGD either inpatient or outpatient once pulmonary issues are addressed Diarrhea No diarrhea today Stool studies negative Stool for C diff negative H/O Breast cancer Follows with Dr. Mar History of R invasive ductal carcinoma ER strongly positive, SC negative, her 2 Denisse negative Rx with Anastrozole Currently on Tamoxifen Pancytopenia Secondary to Malignancy, Cirrhosis Monitor CBC Diabetes II A1c 6.3 in April 2020 Hold home agents SSI while in-patient BSG AC HS Hypertension Was hypotensive yesterday Lisinopril was discontinued. Got albumin and one dose of midodrine yesterday night BP better today Monitor BP with initiation of diuretics CKD III Monitor renal function Avoid nephrotoxic agents as able DVT Px: Hep sq for now Anticoagulation for PVT will wait till EGD per GI recs Code status: FULL CODE Disposition: Plan to dc home once stable Admission and Anticipated Discharge Date Admission Date: July 01, 2020 Subjective 75-year-old woman with alcoholic liver cirrhosis, recently diagnosed portal vein thrombosis, pancytopenia, DM type II, history of breast cancer status post resection and tamoxifen, CKD 3, CVA who presented with progressive shortness of breath over 2-week period. Being managed for acute hypoxic respiratory failure in the setting of bilateral pleural effusions. Status post right pleural catheter placement by pulmonology. Patient seen and examined Reports of some pain at catheter site Reports shortness of breath continues to improve. Reports occasional cough Weakness is improving. Denied other complaints Physical Exam Constitutional: + well hydrated; no acute distress Eyes: PERRL, conjunctivae normal, anicteric sclerae ENMT: external ear and nose normal, oropharynx normal Respiratory: Reduced breath sound lung base with mild right basilar crackles Right pleural catheter draining serous fluid Cardiovascular: Rate/Rhythm: regular rate and regular rhythm S1 S2 Gastrointestinal (Abdomen): normal bowel sounds, soft, nontender, no hepatosplenomegaly Musculoskeletal: +2 pedal edema Neurologic: PERRL, EOMI, accommodation nl, no face palsy, no dysarthria Psychiatric: A+Ox3, euthymic affect Results & Data Results & Data ([facility]) Vital Signs (Past 12 Hours) Vital Signs Temp Pulse Pulse Resp BP BP Pulse Ox 07/04/20 11:51 36.8 C 83 19 120/64 100 07/04/20 08:00 82 07/04/20 07:28 36.5 C 82 17 105/61 96 07/04/20 03:22 36.9 C 73 20 102/59 L 96 Laboratory Results Laboratory Results - last 24 hr 07/03/20 07/03/20 07/04/20 16:16 19:57 06:17 WBC 1.67 L RBC 3.36 L Hgb 10.1 L Hct 32.4 L MCV 96.4 MCH 30.1 MCHC 31.2 L RDW Std Deviation 54.9 H RDW Coeff of Davida 15.4 H Plt Count 60 L MPV 12.2 H Sodium Potassium Chloride Carbon Dioxide Anion Gap BUN Creatinine Est Cr Clr Drug Dosing Est GFR ( Amer) Est GFR (Non-Af Amer) BUN/Creatinine Ratio Glucose POC Glucose 149 H 151 H Calcium Phosphorus Magnesium Total Bilirubin AST ALT Alkaline Phosphatase Total Protein Albumin Globulin Albumin/Globulin Ratio 07/04/20 07/04/20 07/04/20 06:17 07:26 11:36 WBC RBC Hgb Hct MCV MCH MCHC RDW Std Deviation RDW Coeff of Davida Plt Count MPV Sodium 142 Potassium 3.9 Chloride 110 H Carbon Dioxide 26 Anion Gap 6.0 BUN 32 H Creatinine 1.09 Est Cr Clr Drug Dosing 33.7 Est GFR ( Amer) 57.5 Est GFR (Non-Af Amer) 49.6 BUN/Creatinine Ratio 29.5 H Glucose 107 H POC Glucose 135 H 190 H Calcium 8.6 Phosphorus 2.9 Magnesium 1.9 Total Bilirubin 0.6 AST 13 L ALT 14 Alkaline Phosphatase 54 Total Protein 4.7 L Albumin 2.5 L Globulin 2.2 L Albumin/Globulin Ratio 1.1 (1) Diarrhea Diarrhea type: unspecified type Qualified Code(s): R19.7 - Diarrhea, unspecified
--- NOTE | 2020-07-04 17:27 | Pulmonology Progress Note ---
Date of Service July 04, 2020 Assessment & Plan (1) Acute respiratory failure with hypoxia: CT chest 07/01/2020 personally reviewed: Large right-sided pleural effusion with atelectasis/collapse of the right lower lobe. Small left-sided pleural effusion Mediastinal shift to the left No mediastinal lymphadenopathy --Pleural effusion Large right-sided Never had effusion in the past Likely hepatopulmonary effusion coming from cirrhosis Cytology is negative for malignancy S/p pigtail catheter placement 07/01/2020, transudative as per lights criteria Pleural fluid: LDH 57, total protein 1.4, albumin 1.1, glucose 181, pleural pH 7.37 Serum: LDH 238, total protein 6.1, albumin 3.4 Serum albumin to pleural fluid albumin gradient is greater than 1.1, this likely represents hepatopulmonary effusion from underlying cirrhosis --Right-sided pneumothorax Likely from patient pulling the chest tube Small --Acute hypoxic respiratory failure Likely secondary to large right-sided pleural effusion Continue with O2 supplementation to keep oxygen saturation greater than 90% --Nonocclusive thrombus In the intrahepatic vein, superior mesenteric vein as well as splenic vein GI on board will defer anticoagulation to them. Plan: Patient drained 1700 mL in the last 24 hours. The [place] container was just changed. Patient still has small apical pneumothorax on the right. Patient will continue to have pleural fluid drainage till she has started on diuretics. We will plan to put the chest tube on waterseal. If there is no significant change in the size of the pneumothorax tomorrow we wi ll clamp the tube and repeat the chest x-ray to see if we can remove the tube. Please note the above document was generated using voice recognition software. It may contain grammatical, syntax or spelling errors.Any formal questions or concerns about the content, text or information contained within the body of this dictation should be directly addressed to the provider for clarification. (2) Bilateral pleural effusion: (3) History of partial mastectomy of right breast: (4) Pneumothorax: Admission and Anticipated Discharge Date Admission Date: July 01, 2020 Subjective Patient seen and examined at bedside. No acute distress. No adverse events overnight. Chest pain at the site of the chest tube is better controlled today. Denies any shortness of breath. No nausea or vomiting. No headache. No dizziness, fair appetite. Review of Systems Review of Systems: All systems reviewed & are unremarkable except as noted in Subjective Physical Exam Physical Exam: Constitutional: Not in acute distress HEENT: EOMI, PERRLA Respiratory system: Decreased air entry bilaterally, no wheeze, no rhonchi, positive crackles bilateral lower lobes CVS: S1-S2 positive, no murmurs or gallops Abdomen: Soft, nontender, nondistended, positive bowel sounds x4 Extremities: +2 pulses bilaterally radialis/ dorsalis pedis, no cyanosis, + 1 pitting edema bilateral lower extremity Neuro: Awake alert oriented x3 Psych: Normal mood and affect G/U: No Lanza Right-sided chest tube in place Skin: no rashes, warm and dry Lymphatic: no cervical or axillary lymphadenopathy Results & Data Results & Data ([facility]) Vital Signs (Past 12 Hours) Vital Signs Temp Pulse Pulse Resp BP BP Pulse Ox 07/04/20 16:59 93 07/04/20 15:28 68 07/04/20 11:51 36.8 C 83 19 120/64 100 07/04/20 08:00 82 07/04/20 07:28 36.5 C 82 17 105/61 96 07/04/20 06:17 07/04/20 06:17 PG Care Time/CCT Total # of Minutes Spent Total Time Spent with Patient: Total time spent is greater than 50% in coordination of care (as documented) at patient's floor/unit and/or counseling patient: Coding Level of Care Code 47570 Subseq Hosp Care Lvl 3 Diagnoses Acute respiratory failure with hypoxia J96.01 Bilateral pleural effusion J90 History of partial mastectomy of right breast Z90.11 Pneumothorax J93.9
[2020-07-04] MEDS: ACETAMINOPHEN 325 MG TAB PO PRN (20:46)
[2020-07-04] MEDS: QUEtiapine FUMARATE 25 MG TABLET PO SCH (20:46)
[2020-07-05 07:26] LABS: INR 1.2 (0.9-1.1)
[2020-07-05 07:42] LABS: Hematocrit (blood only) 32.1 % (37-47); Hemoglobin 10.3 g/dL (12.0-16.0); Mean Corpuscular Hemoglobin 30.7 pg (25-34); Mean Corpuscular Hgb Conc 32.1 g/dL (32-36); Mean Corpuscular Volume 95.8 fL (80-100); Mean Platelet Volume 12.8 fL (7.4-10.4); Platelet Count 64 K/uL (130-400); RDW Coefficient of Variation 15.3 % (11.5-14.5); RDW Standard Deviation 54.1 fL (36.4-46.3); Red Blood Count 3.35 M/uL (4.2-5.4); White Blood Count 1.36 K/uL (4.8-10.8)
[2020-07-05 07:43] LABS: Albumin Level 2.5 gm/dl (3.4-5.0); BUN Creatinine Ratio 30.6 (10-20); Calcium 8.3 mg/dl (8.5-10.1); Creatinine Clr Calc Pharmacy 34.6 ml/min; Est GFR (African American) 59.5 ml/min; Est GFR (Non-African American) 51.3 ml/min; Magnesium 1.8 mg/dl (1.8-2.4); Potassium 4.3 mmol/L (3.5-5.1)
[2020-07-05 07:46] LABS: Albumin Globulin Ratio 1.1 (0.9-2); Bilirubin,Total 0.5 mg/dl (0.2-1); Globulin 2.3 gm/dl (2.5-4.0); Phosphorus 3.1 mg/dl (2.5-4.9); Total Protein 4.8 gm/dl (6.4-8.2)
--- NOTE | 2020-07-05 07:54 | XRay Report ---
XR chest 1V portable HISTORY: 75 years-old Female f/u follow-up study in a patient with pleural effusions COMPARISON: Chest radiograph 07/04/2020 TECHNIQUE: Portable AP view of the chest FINDINGS: The cardiac mediastinal and hilar silhouettes are unchanged. A right-sided chest tube is again noted projecting over the lateral right lung base. Tiny right apical pneumothorax with pleural separation o f 4 mm is unchanged. Trace right and small left pleural effusions with persistent bibasilar opacities . Degenerative changes of the shoulders and spine. IMPRESSION: 1. Stable exam with unchanged trace right apical pneumothorax and stable positioning of the right mike g base pleural catheter. 2. Unchanged trace right and small left pleural effusions. 3. Persistent bibasilar opacities. ACT 112: Negative or not required by law. The above report was generated using voice recognition software. It may contain grammatical, syntax o r spelling errors. Electronically signed by: Osorio Cabello M.D. 07/05/2020 7:52 AM
[2020-07-05] MEDS: HEPARIN SOD 5,000 UNIT/0.5 ML VIAL SQ SCH (08:13)
[2020-07-05] MEDS: TAMOXIFEN CITRATE 10 MG TABLET PO SCH (08:18)
[2020-07-05] MEDS: ATORVASTATIN 10 MG TAB PO SCH (08:18)
[2020-07-05] MEDS: CHOLECALCIFEROL 1,000 UNITS 25 MCG TAB PO SCH (08:18)
[2020-07-05] MEDS: MAGNESIUM OXIDE 400 MG TAB PO SCH (08:19)
[2020-07-05] MEDS: FUROSEMIDE 20 MG TAB PO SCH (08:19)
[2020-07-05] MEDS: METOPROLOL SUCC 25MG EXT REL TAB PO SCH (08:19)
[2020-07-05] MEDS: PANTOprazole 40 MG TAB PO SCH (08:20)
[2020-07-05] MEDS: SPIRONOLACTONE 25 MG TAB PO SCH (08:20)
--- NOTE | 2020-07-05 08:29 | Gastroenterology Progress Note ---
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 GI asked to evaluate for diarrhea and for pre-anticoagulate EGD. We had tentatively planned for EGD today pending chest tube status as it would be unlikely to be completed in endo lab - Will discuss EGD with attending and endo staff - negative cdiff - culture negative - Nonocclusive PVT no acute indication for anticoagulation - Start low dose diuretics - Lasix 20-40 mg daily - Aldactone 25-50 mg daily - Close monitor BP - Educated on low salt diet - Will need dietary consultation as she notes high sodium intake Recall GI as needed. Thank you for allowing us to participate in the care of this patient. Please call with any acute changes, questions or concerns. Please see addendum below with additional recommendation from my supervising physician. Admission and Anticipated Discharge Date Admission Date: July 01, 2020 Supervising Physician Co-Signing Physician Notes I performed a history and physical examination of the patient today, including specifically on physical exam - soft abdomen. I have discussed the patient's management with the advanced practitioner. Please refer to the nurse practitioner's note for the documented findings and plan of care. EGD today Patient was explained in detail regarding risks, benefits, limitations and alternatives of the above endoscopic procedure. Risks of intravenous sedation used for procedure were also explained. Risks include, but not limited to perforation, bleeding, infection, respiratory distress, cardiac arrest and . Patient is also aware about the possibility of missed lesion. Patient's questions were answered. The patient verbalized understanding the information and agreed to undergo the procedure. Subjective pt was seen and evaluated, chart reviewed chest tube still in place no gi concerns this am no abd pain, nausea/vomiting no black or bloody stools no longer with loose stools had a formed stool yesterday Review of Systems Review of Systems: All systems reviewed & are unremarkable except as noted in HPI & below Physical Exam Constitutional: WD/WN, vitals as above well nourished, + acute distress, + ill appearing (chronically ill ) and + thin Neck: trachea midline, no thyromegaly Respiratory: normal respiratory effort; no respiratory distress Cardiovascular: RRR, no murmur, no edema Rate/Rhythm: regular rate and regular rhythm Gastrointestinal (Abdomen): normal bowel sounds, soft, nontender, no hepatosplenomegaly Skin: no rashes, warm and dry Results & Data ([facility]) Vital Signs (Past 12 Hours) Vital Signs Temp Pulse Pulse Resp BP BP Pulse Ox 07/05/20 08:06 36.8 C 79 19 126/70 92 07/05/20 04:19 36.7 C 70 16 122/72 95 07/04/20 23:13 36.9 C 78 20 90/51 L 94 07/04/20 22:56 80
[2020-07-05] MEDS: INSULIN ASPART 100 UNITS/ML 3 ML PEN SC SCH ×4 (09:16→21:06)
[2020-07-05] MEDS ORDERED: LIDOCAINE 2% 2 ML VIAL/AMP(20MG/ML) INFIL ONE (10:10)
[2020-07-05] MEDS ORDERED: PROPOFOL IV EMULSION 10 MG/ML 20 ML VIAL IV ONE (10:10)
[2020-07-05] MEDS ORDERED: fentaNYL citrate 100 MCG/2 ML VIAL IV ONE (10:10)
--- NOTE | 2020-07-05 11:17 | Anesthesiology Consultation ---
Date of Service July 05, 2020 Assessment & Plan (1) Encounter for pre-operative examination: Chart Review Chart Review: Acceptable Risk for Surgery and Patient NOT seen in Pre Admission Testing Consults Requested none History Surgery Operation Date: 07/05/20 11:40 Proposed Procedures p Esophagogastroduodenoscopy - Lewis Hester MD Operation Date: 07/05/20 15:30 Proposed Procedures p Esophagogastroduodenoscopy Dr Hester - Lewis Hester MD Height/Weight Height: 5 ft 1 in Weight: 52.3 kg Allergies Allergy/AdvReac Type Severity Reaction Status Date / Time Sulfa (Sulfonamide Allergy Unknown RASH Verified 07/01/20 10:29 Antibiotics) Medications Home Medications Medication Instructions Recorded Confirmed Last Taken acetaminophen [Tylenol] 650 mg PO QID PRN 02/02/20 07/01/20 Unknown alendronate [Fosamax] 70 mg PO WK 02/02/20 07/01/20 06/25/20 atorvastatin [Lipitor] 10 mg PO DAILY 02/02/20 07/01/20 06/30/20 glipizide [Glucotrol XL] 10 mg PO DAILY 02/02/20 07/01/20 07/01/20 lisinopril 10 mg PO DAILY 02/02/20 07/01/20 07/01/20 magnesium oxide 400 mg PO DAILY 02/02/20 07/01/20 06/30/20 metoprolol succinate [Toprol XL] 25 mg PO DAILY 02/02/20 07/01/20 06/30/20 omeprazole 20 mg PO DAILY 02/02/20 07/01/20 07/01/20 tamoxifen 20 mg PO DAILY 02/02/20 07/01/20 07/01/20 cholecalciferol (vitamin D3) 50 mcg PO Q2D 07/01/20 07/01/20 Unknown [Vitamin D3] quetiapine 50 mg PO HS 07/01/20 07/01/20 06/30/20 Active Medications Generic Name Dose Route Start Last Admin Trade Name Freq PRN Reason Stop Dose Admin Acetaminophen 650 mg 07/01/20 15:48 07/04/20 20:46 Acetaminophen 325 Mg Tab PO 07/31/20 15:47 650 mg Q4H PRN Administration Pain or Fever Alendronate Sodium 70 mg 07/02/20 06:30 07/02/20 05:36 Alendronate Sodium 70 Mg Tab PO 08/01/20 06:29 70 mg Tu@0630 KEYSHA Administration Atorvastatin Calcium 10 mg 07/02/20 09:00 07/05/20 08:18 Atorvastatin 10 Mg Tab PO 08/01/20 08:59 10 mg DAILY KEYSHA Administration Furosemide 20 mg 07/05/20 09:00 07/05/20 08:19 Furosemide 20 Mg Tab PO 08/04/20 08:59 20 mg QAM KEYSHA Administration Heparin Sodium (Porcine) 5,000 units 07/03/20 21:00 07/05/20 08:13 Heparin Sod 5,000 Unit/0.5 Ml Vial SQ 08/02/20 20:59 5,000 units Q12 KEYSHA Administration Insulin Aspart 0 units 07/01/20 16:30 07/05/20 09:16 Insulin Aspart 100 Units/Ml 3 Ml Pen SC 07/31/20 16:29 Not Given ACHS KEYSHA Lisinopril 10 mg 07/02/20 09:00 07/03/20 08:18 Lisinopril 10 Mg Tab PO 08/01/20 08:59 10 mg DAILY KEYSHA Administration Magnesium Oxide 400 mg 07/02/20 09:00 07/05/20 08:19 Magnesium Oxide 400 Mg Tab PO 08/01/20 08:59 400 mg DAILY KEYSHA Administration Metoprolol Succinate 25 mg 07/02/20 09:00 07/05/20 08:19 Metoprolol Succ 25mg Ext Rel Tab PO 08/01/20 08:59 25 mg DAILY KEYSHA Administration Pantoprazole Sodium 40 mg 07/02/20 09:00 07/05/20 08:20 Pantoprazole 40 Mg Tab PO 08/01/20 08:59 40 mg DAILY KEYSHA Administration Protocol Quetiapine Fumarate 50 mg 07/01/20 21:00 07/04/20 20:46 Quetiapine Fumarate 25 Mg Tablet PO 07/31/20 20:59 50 mg HS KEYSHA Administration Spironolactone 25 mg 07/05/20 09:00 07/05/20 08:20 Spironolactone 25 Mg Tab PO 08/04/20 08:59 25 mg QAM KEYSHA Administration Tamoxifen Citrate 20 mg 07/02/20 09:00 07/05/20 08:18 Tamoxifen Citrate 10 Mg Tablet PO 08/01/20 08:59 20 mg DAILY KEYSHA Administration Vitamin D 2,000 units 07/03/20 09:00 07/05/20 08:18 Cholecalciferol 1,000 Units 25 Mcg Tab PO 08/02/20 08:59 2,000 units Q2D@0900 KEYSHA Administration Past Medical History Medical History Alcoholic cirrhosis of liver Breast cancer CKD (chronic kidney disease) CKD (chronic kidney disease), stage III CVA (cerebral vascular accident) Diabetes mellitus Esophageal 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 HTN (hypertension) PAD (peripheral artery disease) Pancytopenia Peripheral neuropathy Past Family History Family History Other Cirrhosis Dementia Past Surgical History Surgical History History of partial mastectomy of right breast Hx of cholecystectomy Social History Smoking Status: Never smoker Do You Dip or Chew Tobacco: No Hx Alcohol Use: Yes Alcohol type: beer and wine alcohol intake frequency: other Alcohol Intake Frequency Comment: Quit drinking 10 years ago; moderate up til then. Hx Substance Use: No substance use type: does not use Physical Exam Vital Signs Last Vital Signs Temp 36.8 C 07/05/20 08:06 Pulse 79 07/05/20 08:06 Resp 19 07/05/20 08:06 BP 126/70 07/05/20 08:06 Pulse Ox 92 07/05/20 08:06 Testing Laboratory Results 07/05/20 06:49 07/05/20 06:49 PT 12.0 Seconds (9.0-12.0) 07/05/20 06:49 INR 1.2 (0.9-1.1) H 07/05/20 06:49 APTT 25.1 Seconds (21.0-31.0) 07/01/20 14:48 07/01/20 14:06 Gram Stain - Final Pleural Fluid Aerobic and Anaerobic Culture - Preliminary No growth to date. 07/01/20 16:40 Escherichia coli Shiga Toxins Test - Final Stool Stool Culture - Final No Salmonella isolated, No Shigella isolated, No Campylobacter jejuni isolated. 07/01/20 14:06 Acid Fast Bacilli Smear - Final Pleural Fluid Electrocardiogram Date: 07/01/20 Findings: + NSR @ (96)
[2020-07-05] MEDS ORDERED: ePHEDrine sulfate 50 MG/ML AMP IV PRN (12:02)
[2020-07-05] MEDS ORDERED: ATROPINE SULFATE 0.1 MG/ML 10ML SYR IV PRN (12:02)
[2020-07-05] MEDS ORDERED: fentaNYL citrate 100 MCG/2 ML VIAL IV PRN (12:02)
[2020-07-05] MEDS ORDERED: ONDANSETRON INJ 2 MG/ML 2 ML VIAL IV PRN (12:02)
--- NOTE | 2020-07-05 12:11 | Hospitalist Progress Note ---
Date of Service July 05, 2020 Assessment & Plan (1) Acute respiratory failure with hypoxia: (2) Bilateral pleural effusion: (3) Portal vein thrombosis: (4) Diarrhea: (5) Alcoholic cirrhosis of liver: (6) Breast cancer: (7) Pancytopenia: (8) Diabetes mellitus: (9) HTN (hypertension): (10) CKD (chronic kidney disease), stage III: Acute hypoxic respiratory failure with Hypoxia Bilateral pleural effusions, R>L Bibasilar atelectasis Small right pneumothorax -CT Chest: No PE, large right pleural effusion with complete atelectasis of the right lower lung and leftward shift of the mediastinum. There is a small left pleural effusion with left basilar atelectasis. -Transudative effusion as per light's criteria Fluid pathology negative for malignancy Effusion /hydrothorax likely due to cirrhosis without ascites -S/P pigtail catheter placement on 07/01/20 -Creative Technologist on board. Appreciate recommendations -Echo reviewed. No left to right shunt/regional wall motion abnormality noted. Normal EF -Continue incentive spirometry. Started on low dose diuretic - lasix 20 and aldactone 25 yesterday. May increase as tolerated Off oxygen at rest. Will need ambulatory pulse ox assessment later Still having significant drainage from chest tube Pulm on board Portal vein thrombosis Alcohol liver cirrhosis Recent follow-up with GI service with ultrasound revealed new portal vein thrombosis Scheduled for semiurgent EGD scheduled for 07/08 to rule out varices prior to starting anticoagulation -CT ABD:Cirrhotic liver morphology. Splenomegaly, perisplenic varices, and a small volume of abdominopelvic ascites indicate portal hypertension. There is nonocclusive thrombus within the intrahepatic right and left lobe portal veins, the splenic vein, and the superior mesenteric vein. There is mild diffuse colonic wall thickening and edema with pericolonic infiltration. This could represent portal colopathy versus a nonspecific proctocolitis. Clinical correlation will be essential. Colonic diverticulosis without CT evidence of acu te diverticulitis. -Echo noted -Discussed with Eyeglass Frames Polisher Dr Hester today. EGD showed grade 1, small varices without bleeding or stigmata of recent bleed. Moderate portal hypertensive gastropathy in gastric body Discussed with Eyeglass Frames Polisher. Ok to anticoagulate. Start warfarin and monitor INR Diarrhea No diarrhea today Stool studies negative Stool for C diff negative H/O Breast cancer Follows with Dr. Mar History of R invasive ductal carcinoma ER strongly positive, AR negative, her 2 Denisse negative Rx with Anastrozole Currently on Tamoxifen Pancytopenia Secondary to Malignancy, Cirrhosis Monitor CBC Diabetes II A1c 6.3 in April 2020 Hold home agents SSI while in-patient BSG AC HS Hypertension Had some hypotensive episodes and Lisinopril was discontinued. Monitor BP with initiation of diuretics CKD III Monitor renal function Avoid nephrotoxic agents as able DVT Px: Warfarin Code status: FULL CODE Disposition: Plan to dc home once stable Will get PT/OT eval once stable Admission and Anticipated Discharge Date Admission Date: July 01, 2020 Subjective 75-year-old woman with alcoholic liver cirrhosis, recently diagnosed portal vein thrombosis, pancytopenia, DM type II, history of breast cancer status post resection and tamoxifen, CKD 3, CVA who presented with progressive shortness of breath over 2-week period. Being managed for acute hypoxic respiratory failure in the setting of bilateral pleural effusions. Status post right pleural catheter placement by pulmonology. Patient seen and examined Reports only some pulling sensation catheter site. No pain. No shortness of breath. Improved cough Weakness much improved Has been completely weaned off oxygen Denies any other complaints Physical Exam Constitutional: + well hydrated; no acute distress Eyes: PERRL, conjunctivae normal, anicteric sclerae ENMT: external ear and nose normal, oropharynx normal Respiratory: Reduced breath sound lung base with minimal right basilar crackles Right pleural catheter draining serous fluid Cardiovascular: Rate/Rhythm: regular rate and regular rhythm Gastrointestinal (Abdomen): normal bowel sounds, soft, nontender, no hepatosplenomegaly Musculoskeletal: + pedal edema Neurologic: PERRL, EOMI, accommodation nl, no face palsy, no dysarthria Psychiatric: A+Ox3, euthymic affect Results & Data Results & Data ([facility]) Vital Signs (Past 12 Hours) Vital Signs Temp Pulse Pulse Resp BP BP Pulse Ox 07/05/20 11:31 36.8 C 85 20 136/65 96 07/05/20 08:06 36.8 C 79 19 126/70 92 07/05/20 08:00 78 07/05/20 04:19 36.7 C 70 16 122/72 95 Laboratory Results Laboratory Results - last 24 hr 07/04/20 07/04/20 07/05/20 16:26 20:40 06:49 WBC 1.36 L RBC 3.35 L Hgb 10.3 L Hct 32.1 L MCV 95.8 MCH 30.7 MCHC 32.1 RDW Std Deviation 54.1 H RDW Coeff of Davida 15.3 H Plt Count 64 L MPV 12.8 H PT INR Sodium Potassium Chloride Carbon Dioxide Anion Gap BUN Creatinine Est Cr Clr Drug Dosing Est GFR ( Amer) Est GFR (Non-Af Amer) BUN/Creatinine Ratio Glucose POC Glucose 126 H 162 H Calcium Phosphorus Magnesium Total Bilirubin AST ALT Alkaline Phosphatase Total Protein Albumin Globulin Albumin/Globulin Ratio 07/05/20 07/05/20 06:49 06:49 WBC RBC Hgb Hct MCV MCH MCHC RDW Std Deviation RDW Coeff of Davida Plt Count MPV PT 12.0 INR 1.2 H Sodium 142 Potassium 4.3 Chloride 110 H Carbon Dioxide 26 Anion Gap 6.0 BUN 32 H Creatinine 1.06 Est Cr Clr Drug Dosing 34.6 Est GFR ( Amer) 59.5 Est GFR (Non-Af Amer) 51.3 BUN/Creatinine Ratio 30.6 H Glucose 142 H POC Glucose Calcium 8.3 L Phosphorus 3.1 Magnesium 1.8 Total Bilirubin 0.5 AST 13 L ALT 15 Alkaline Phosphatase 57 Total Protein 4.8 L Albumin 2.5 L Globulin 2.3 L Albumin/Globulin Ratio 1.1 (1) Diarrhea Diarrhea type: unspecified type Qualified Code(s): R19.7 - Diarrhea, unspecified
--- NOTE | 2020-07-05 12:22 | History & Physical Bridge Note ---
Date of Service July 05, 2020 History & Physical Bridge Note I have examined the patient, reviewed the History & Physical and in the interval since the performance of the History & Physical I have noted the following changes of clinical significance: no changes noted
--- NOTE | 2020-07-05 12:47 | Operative Report ---
Post Operative Report Pre & Post Diagnosis Operation Date: 07/05/20 11:40 Pre-Op Diagnosis: Cirrhosis Post-Op Diagnosis: Cirrhosis Operation Date: 07/05/20 15:30 <No data on this case meets the specified criteria> I identified the patient and participated in the time-out.: Yes Procedure Operation Date: 07/05/20 11:40 Actual Procedures p Esophagogastroduodenoscopy(Not Applicable) - Lewis Hester MD Operation Date: 07/05/20 15:30 <No data on this case meets the specified criteria> Surgeon Lewis Hester MD Compliance Administrator None Estimated Blood Loss 0 Findings See Below (small Varices) Specimens None Description of Procedure EGD I attest to the content of the Intraoperative Record and any orders documented therein. Any exceptions are noted below.
--- NOTE | 2020-07-05 13:05 | GI REPORT ---
Patient Name: Radha Manjarrez Procedure Date: 07/05/2020 12:27 PM Date of : 1945 Admit Type: Inpatient Age: 75 Gender: Female Attending MD: Lewis Hester MD Procedure: Upper GI endoscopy Providers: Lewis Hester MD Referring MD: Nga Melgar Md Indications: Cirrhosis rule out esophageal varices Medicines: General Anesthesia Complications: No immediate complications. Estimated Blood Loss: Estimated blood loss: none. Procedure: Pre-Anesthesia Assessment: - Prior to the procedure, a History and Physical was performed, and patient medications, allergies and sensitivities were reviewed. The patient's tolerance of previous anesthesia was reviewed. - The risks and benefits of the procedure and the sedation options and risks were discussed with the patient. All questions were answered and informed consent was obtained. - Patient identification and proposed procedure were verified prior to the procedure by the physician and the nurse. The procedure was verified in the procedure room. - Pre-procedure physical examination revealed no contraindications to sedation. After obtaining informed consent, the endoscope was passed under direct vision. Throughout the procedure, the patient's blood pressure, pulse, and oxygen saturations were monitored continuously. The Endoscope was introduced through the mouth, and advanced to the second part of duodenum. The upper GI endoscopy was accomplished without difficulty. The patient tolerated the procedure well. Findings: Two columns of grade I, small (< 5 mm) varices with no bleeding and no stigmata of recent bleeding were found in the lower third of the esophagus. No red abel signs were present. Moderate portal hypertensive gastropathy was found in the gastric body. The duodenal bulb and second portion of the duodenum were normal. Impression: - Grade I, small (< 5 mm) esophageal varices with no bleeding and no stigmata of recent bleeding. - Portal hypertensive gastropathy. - Normal duodenal bulb and second portion of the duodenum. - No specimens collected. Recommendation: - [facility]. - Repeat upper endoscopy in 6 months for surveillance. - May use anticoagulation with carefull monitoring for signs of bleeding. - Consider using NSBB. - Recall GI if needed. Lewis Hester MD 07/05/2020 1:05:05 PM This report has been signed electronically. Note Initiated On: 07/05/2020 12:27 PM Number of Addenda: 0 I attest to the content of the Intraoperative Record and orders documented therein, exceptions below {[id number]}
--- NOTE | 2020-07-05 14:09 | Anesthesiology Progress Note ---
Date of Service July 05, 2020 Anesthesia Post Procedure Vital Signs Vital Signs: Temp Pulse Pulse Pulse Resp BP BP 07/05/20 13:38 37.3 C 85 18 125/58 L 07/05/20 13:35 94 H 18 107/56 L 07/05/20 13:25 89 18 121/55 L 07/05/20 13:15 85 18 127/62 07/05/20 13:05 100 H 18 139/72 07/05/20 12:57 36.4 C L 83 18 114/49 L 07/05/20 11:31 36.8 C 85 20 136/65 07/05/20 08:06 36.8 C 79 19 126/70 07/05/20 08:00 78 07/05/20 04:19 36.7 C 70 16 122/72 07/04/20 23:13 36.9 C 78 20 90/51 L 07/04/20 22:56 80 07/04/20 19:41 36.9 C 81 18 100/48 L 07/04/20 16:59 07/04/20 15:28 68 Pulse Ox 07/05/20 13:38 95 07/05/20 13:35 97 07/05/20 13:25 97 07/05/20 13:15 99 07/05/20 13:05 91 07/05/20 12:57 95 07/05/20 11:31 96 07/05/20 08:06 92 07/05/20 08:00 07/05/20 04:19 95 07/04/20 23:13 94 07/04/20 22:56 07/04/20 19:41 93 07/04/20 16:59 93 07/04/20 15:28 Pain Intensity Right Ribs: Pain Intensity: 3 Transfer of Care Handoff Completed per policy Notes Mental Status: alert / awake / arousable and participated in evaluation Patient Amnestic to Procedure: Yes Nausea / Vomiting: adequately controlled Pain: adequately controlled Airway Patency, RR, SpO2: stable & adequate BP & HR: stable & adequate Hydration State: stable & adequate Anesthetic Complications: no major complications apparent and Pt Satisfied with anesthetic care
--- NOTE | 2020-07-05 15:20 | Pulmonology Progress Note ---
Date of Service July 05, 2020 Assessment & Plan (1) Acute respiratory failure with hypoxia: CT chest 07/01/2020 personally reviewed: Large right-sided pleural effusion with atelectasis/collapse of the right lower lobe. Small left-sided pleural effusion Mediastinal shift to the left No mediastinal lymphadenopathy --Pleural effusion Large right-sided Never had effusion in the past Likely hepatopulmonary effusion coming from cirrhosis Cytology is negative for malignancy S/p pigtail catheter placement 07/01/2020, transudative as per lights criteria Pleural fluid: LDH 57, total protein 1.4, albumin 1.1, glucose 181, pleural pH 7.37 Serum: LDH 238, total protein 6.1, albumin 3.4 Serum albumin to pleural fluid albumin gradient is greater than 1.1, this likely represents hepatopulmonary effusion from underlying cirrhosis --Right-sided pneumothorax Likely from patient pulling the chest tube Small --Acute hypoxic respiratory failure Likely secondary to large right-sided pleural effusion Continue with O2 supplementation to keep oxygen saturation greater than 90% --Nonocclusive thrombus In the intrahepatic vein, superior mesenteric vein as well as splenic vein GI on board will defer anticoagulation to them. Plan: Chest tube is on waterseal since yesterday. Chest tube level 1300 mL today. Patient drained 1300 mL in the last 24 hours Has small apical pneumothorax I will clamp the tube today. Keeping in mind the patient's pleural effusion will come back as it is draining significantly It will continue to drain until the diuretics have been optimized. I do not think that is what should be the reason to keep the chest tube in If tomorrow in the morning and the pneumothorax does not increase in size I will take the chest tube out. Please note the above document was generated using voice recognition software. It may contain grammatical, syntax or spelling errors.Any formal questions or concerns about the content, text or information contained within the body of this dictation should be directly addressed to the provider for clarification. (2) Bilateral pleural effusion: (3) History of partial mastectomy of right breast: (4) Pneumothorax: Admission and Anticipated Discharge Date Admission Date: July 01, 2020 Subjective Patient seen and examined at bedside. No acute distress. No adverse events overnight. Patient denies any shortness of breath, no headache, no dizziness, no nausea or vomiting. She is n.p.o. She denies any pain at the chest tube site Review of Systems Review of Systems: All systems reviewed & are unremarkable except as noted in Subjective Physical Exam Physical Exam: Constitutional: Not in acute distress HEENT: EOMI, PERRLA Respiratory system: Decreased air entry bilaterally, no wheeze, no rhonchi, positive crackles bilateral lower lobes CVS: S1-S2 positive, no murmurs or gallops Abdomen: Soft, nontender, nondistended, positive bowel sounds x4 Extremities: +2 pulses bilaterally radialis/ dorsalis pedis, no cyanosis, + 1 pitting edema bilateral lower extremity Neuro: Awake alert oriented x3 Psych: Normal mood and affect G/U: No Lanza Right-sided chest tube in place Skin: no rashes, warm and dry Lymphatic: no cervical or axillary lymphadenopathy Results & Data Results & Data ([facility]) Vital Signs (Past 12 Hours) Vital Signs Temp Pulse Pulse Pulse Resp BP BP 07/05/20 14:15 36.6 C 80 18 120/66 07/05/20 14:00 36.6 C 79 18 126/70 07/05/20 13:38 37.3 C 85 18 125/58 L 07/05/20 13:35 94 H 18 107/56 L 07/05/20 13:25 89 18 121/55 L 07/05/20 13:15 85 18 127/62 07/05/20 13:05 100 H 18 139/72 07/05/20 12:57 36.4 C L 83 18 114/49 L 07/05/20 11:31 36.8 C 85 20 136/65 07/05/20 08:06 36.8 C 79 19 126/70 07/05/20 08:00 78 07/05/20 04:19 36.7 C 70 16 122/72 Pulse Ox 07/05/20 14:15 97 07/05/20 14:00 07/05/20 13:38 95 07/05/20 13:35 97 07/05/20 13:25 97 07/05/20 13:15 99 07/05/20 13:05 91 07/05/20 12:57 95 07/05/20 11:31 96 07/05/20 08:06 92 07/05/20 08:00 07/05/20 04:19 95 07/05/20 06:49 07/05/20 06:49 PG Care Time/CCT Total # of Minutes Spent Total Time Spent with Patient: Total time spent is greater than 50% in coordination of care (as documented) at patient's floor/unit and/or counseling patient: Coding Level of Care Code 90618 Subseq Hosp Care Lvl 3 Diagnoses Acute respiratory failure with hypoxia J96.01 Bilateral pleural effusion J90 History of partial mastectomy of right breast Z90.11 Pneumothorax J93.9
[2020-07-05] MEDS: WARFARIN SOD 4 MG TAB PO SCH (17:08)
[2020-07-05] MEDS: ACETAMINOPHEN 325 MG TAB PO PRN (21:01)
[2020-07-05] MEDS: QUEtiapine FUMARATE 25 MG TABLET PO SCH (21:01)
[2020-07-06 06:18] LABS: INR 1.2 (0.9-1.1)
[2020-07-06 06:43] LABS: Albumin Level 2.7 gm/dl (3.4-5.0); Calcium 9.1 mg/dl (8.5-10.1); Est GFR (African American) 58.2 ml/min; Est GFR (Non-African American) 50.2 ml/min; Potassium 4.2 mmol/L (3.5-5.1)
[2020-07-06 06:44] LABS: Hematocrit (blood only) 34.6 % (37-47); Hemoglobin 11.1 g/dL (12.0-16.0); Mean Corpuscular Hemoglobin 30.8 pg (25-34); Mean Corpuscular Hgb Conc 32.1 g/dL (32-36); Mean Corpuscular Volume 96.1 fL (80-100); Mean Platelet Volume 12.6 fL (7.4-10.4); Platelet Count 65 K/uL (130-400); Platelet Estimate Decreased (Normal); RDW Coefficient of Variation 15.2 % (11.5-14.5); RDW Standard Deviation 53.9 fL (36.4-46.3); White Blood Count 1.38 K/uL (4.8-10.8)
[2020-07-06 06:46] LABS: Bilirubin,Total 0.5 mg/dl (0.2-1); Globulin 2.6 gm/dl (2.5-4.0); Total Protein 5.3 gm/dl (6.4-8.2)
[2020-07-06] MEDS: INSULIN ASPART 100 UNITS/ML 3 ML PEN SC SCH ×4 (08:49→20:46)
[2020-07-06] MEDS: TAMOXIFEN CITRATE 10 MG TABLET PO SCH (08:51)
[2020-07-06] MEDS: SPIRONOLACTONE 25 MG TAB PO SCH (08:51)
[2020-07-06] MEDS: PANTOprazole 40 MG TAB PO SCH (08:52)
[2020-07-06] MEDS: MAGNESIUM OXIDE 400 MG TAB PO SCH (08:52)
[2020-07-06] MEDS: FUROSEMIDE 20 MG TAB PO SCH (08:53)
[2020-07-06] MEDS: ATORVASTATIN 10 MG TAB PO SCH (08:53)
[2020-07-06] MEDS: METOPROLOL SUCC 25MG EXT REL TAB PO SCH (08:53)
--- NOTE | 2020-07-06 09:08 | Hospitalist Progress Note ---
Date of Service July 06, 2020 Assessment & Plan (1) Acute respiratory failure with hypoxia: (2) Bilateral pleural effusion: (3) Portal vein thrombosis: (4) Diarrhea: (5) Alcoholic cirrhosis of liver: (6) Breast cancer: (7) Pancytopenia: (8) Diabetes mellitus: (9) HTN (hypertension): (10) CKD (chronic kidney disease), stage III: Acute hypoxic respiratory failure with Hypoxia Bilateral pleural effusions, R>L Bibasilar atelectasis Small right pneumothorax -CT Chest: No PE, large right pleural effusion with complete atelectasis of the right lower lung and leftward shift of the mediastinum. There is a small left pleural effusion with left basilar atelectasis. -Transudative effusion as per light's criteria Fluid pathology negative for malignancy Effusion /hydrothorax likely due to cirrhosis without ascites -S/P pigtail catheter placement on 07/01/20 -Block Sawyer on board. Appreciate recommendations -Echo reviewed. No left to right shunt/regional wall motion abnormality noted. Normal EF -Continue incentive spirometry. Started on low dose diuretic - lasix 20 and aldactone 25 BP has been borderline. Diuretics can be uptitrated as needed overtime on outpatient Off oxygen at rest. Will get ambulatory pulse ox assessment once chest tube is removed Get CXR this AM. Pulm will determine removal of chest tube Portal vein thrombosis Alcohol liver cirrhosis Recent follow-up with GI service with ultrasound revealed new portal vein thrombosis Scheduled for semiurgent EGD scheduled for 07/08 to rule out varices prior to starting anticoagulation -CT ABD:Cirrhotic liver morphology. Splenomegaly, perisplenic varices, and a small volume of abdominopelvic ascites indicate portal hypertension. There is nonocclusive thrombus within the intrahepatic right and left lobe portal veins, the splenic vein, and the superior mesenteric vein. There is mild diffuse colonic wall thickening and edema with pericolonic infiltration. This could represent portal colopathy versus a nonspecific proctocolitis. Clinical correlation will be essential. Colonic diverticulosis without CT evidence of acute diverticulitis. -Echo noted -EGD 07/05/20 showed grade 1, small varices without bleeding or stigmata of recent bleed. Moderate portal hypertensive gastropathy in gastric body Discussed with Manager [employer]. Ok to anticoagulate. Was started on warfarin Provided education about warfarin Will need follow up with Anticoagulation clinic on discharge Diarrhea Resolved Stool studies negative Stool for C diff negative H/O Breast cancer Follows with Dr. Mar History of R invasive ductal carcinoma ER strongly positive, IA negative, her 2 Denisse negative Rx with Anastrozole Currently on Tamoxifen Pancytopenia Secondary to Malignancy, Cirrhosis Monitor CBC Diabetes II A1c 6.3 in April 2020 Hold home agents SSI while in-patient BSG AC HS Hypertension Had some hypotensive episodes and Lisinopril was discontinued. Monitor BP with initiation of diuretics. Diuretics may be uptitrated outpatient CKD III Monitor renal function Avoid nephrotoxic agents as able DVT Px: Warfarin Code status: FULL CODE Disposition: Plan to dc home in 1-2 days with home health Admission and Anticipated Discharge Date Admission Date: July 01, 2020 Subjective 75-year-old woman with alcoholic liver cirrhosis, recently diagnosed portal vein thrombosis, pancytopenia, DM type II, history of breast cancer status post resection and tamoxifen, CKD 3, CVA who presented with progressive shortness of breath over 2-week period. Being managed for acute hypoxic respiratory failure in the setting of bilateral pleural effusions. Status post right pleural catheter placement by pulmonology. Had EGD yesterday which showed grade 1 small varices. Was started on Coumadin for GI recommendations Patient seen and examined Reports only discomfort at chest tube site Reports improvement in cough. No shortness of breath. Weakness continues to improve. Physical Exam Constitutional: + well hydrated; no acute distress Eyes: PERRL, conjunctivae normal, anicteric sclerae ENMT: external ear and nose normal, oropharynx normal Respiratory: normal respiratory effort; no respiratory distress Reduced breath sounds lung bases. Right-sided chest tube in situ Cardiovascular: Rate/Rhythm: regular rate and regular rhythm S1-S2 Gastrointestinal (Abdomen): normal bowel sounds, soft, nontender, no hepatosplenomegaly Musculoskeletal: +1 bilateral pedal edema Neurologic: PERRL, EOMI, accommodation nl, no face palsy, no dysarthria Psychiatric: A+Ox3, euthymic affect Results & Data Results & Data ([facility]) Vital Signs (Past 12 Hours) Vital Signs Temp Pulse Pulse Resp BP Pulse Ox 07/06/20 07:39 36.7 C 83 18 107/60 96 07/06/20 07:12 75 07/06/20 03:35 36.8 C 73 16 103/59 L 92 07/05/20 23:59 80 07/05/20 23:05 36.7 C 82 18 109/74 95 Laboratory Results Laboratory Results - last 24 hr 07/05/20 07/06/20 07/06/20 13:03 05:28 05:28 WBC 1.38 L RBC 3.60 L Hgb 11.1 L Hct 34.6 L MCV 96.1 MCH 30.8 MCHC 32.1 RDW Std Deviation 53.9 H RDW Coeff of Davida 15.2 H Plt Count 65 L MPV 12.6 H Platelet Estimate Decreased L PT INR Sodium 142 Potassium 4.2 Chloride 108 H Carbon Dioxide 27 Anion Gap 7.0 BUN 30 H Creatinine 1.08 Est Cr Clr Drug Dosing 34.0 Est GFR ( Amer) 58.2 Est GFR (Non-Af Amer) 50.2 BUN/Creatinine Ratio 28.0 H Glucose 125 H POC Glucose 126 H Calcium 9.1 Total Bilirubin 0.5 AST 18 ALT 17 Alkaline Phosphatase 62 Total Protein 5.3 L Albumin 2.7 L Globulin 2.6 Albumin/Globulin Ratio 1.0 07/06/20 07/06/20 05:28 07:37 WBC RBC Hgb Hct MCV MCH MCHC RDW Std Deviation RDW Coeff of Davida Plt Count MPV Platelet Estimate PT 12.0 INR 1.2 H Sodium Potassium Chloride Carbon Dioxide Anion Gap BUN Creatinine Est Cr Clr Drug Dosing Est GFR ( Amer) Est GFR (Non-Af Amer) BUN/Creatinine Ratio Glucose POC Glucose 130 H Calcium Total Bilirubin AST ALT Alkaline Phosphatase Total Protein Albumin Globulin Albumin/Globulin Ratio (1) Diarrhea Diarrhea type: unspecified type Qualified Code(s): R19.7 - Diarrhea, unspecified
--- NOTE | 2020-07-06 10:51 | XRay Report ---
XR chest 1V portable CLINICAL HISTORY: Pleural effusions COMPARISON STUDY: 07/05/2020 FINDINGS: The cardiac and mediastinal contours remain stable. There is a right-sided pleural pigtail catheter unchanged in position. There are small bilateral pleural effusions. There are basilar opacit ies, likely representing compressive atelectasis. Is a 5 mm right apical pneumothorax.[ IMPRESSION: 1. Persistent small pleural effusions with associated basilar opacities 2. No change in the position of the right-sided pleural pigtail catheter. 3. 5 mm right apical pneumothorax. ACT 112: Negative or not required by law. Electronically signed by: Jasen Buenrostro M.D. 07/06/2020 10:50 AM
--- NOTE | 2020-07-06 13:31 | Procedure Note ---
Procedure Note Date of Service July 06, 2020 Procedure: Pigtail chest tube removal [employer] Worker: Dr. Isabel Ecsobar Consent: Verbal given by the patient Anesthesia: 1% lidocaine without epinephrine local Procedure: Patient's tube was clamped for more than 24 hours. There was no change in size of the small pneumothorax Dressing was removed. The pigtail catheter was unlocked. Pigtail catheter was removed on exhalation. The pigtail catheter was found to be intact. Vaseline gauze was applied and sterile dressing was placed. The patient tolerated the procedure without obvious complication Complications: None Blood loss: None Coding CPT Codes Pulmonary/Thoracic - Pulmonary and Thoracic: 01449 Remove lung catheter ([id number]) [facility] [place] Procedure Codes (Charges) Pulmonary/Thoracic Procedure 1: Pulmonary and Thoracic: 26528 Remove lung catheter
--- NOTE | 2020-07-06 13:33 | Pulmonology Progress Note ---
Date of Service July 06, 2020 Assessment & Plan (1) Acute respiratory failure with hypoxia: CT chest 07/01/2020 personally reviewed: Large right-sided pleural effusion with atelectasis/collapse of the right lower lobe. Small left-sided pleural effusion Mediastinal shift to the left No mediastinal lymphadenopathy --Pleural effusion Large right-sided Never had effusion in the past Likely hepatopulmonary effusion coming from cirrhosis Cytology is negative for malignancy S/p pigtail catheter placement 07/01/2020, transudative as per lights criteria Pleural fluid: LDH 57, total protein 1.4, albumin 1.1, glucose 181, pleural pH 7.37 Serum: LDH 238, total protein 6.1, albumin 3.4 Serum albumin to pleural fluid albumin gradient is greater than 1.1, this likely represents hepatopulmonary effusion from underlying cirrhosis --Right-sided pneumothorax Likely from patient pulling the chest tube Small --Acute hypoxic respiratory failure Likely secondary to large right-sided pleural effusion Continue with O2 supplementation to keep oxygen saturation greater than 90% --Nonocclusive thrombus In the intrahepatic vein, superior mesenteric vein as well as splenic vein GI on board will defer anticoagulation to them. Plan: Chest x-ray today shows small right-sided pleural effusion. Small right-sided pneumothorax unchanged in size since yesterday. I will remove the chest tube today. The likelihood of patient developing pleural fluid is high. Would recommend adequate diuretics for her underlying liver cirrhosis. Please note the above document was generated using voice recognition software. It may contain grammatical, syntax or spelling errors.Any formal questions or concerns about the content, text or information contained within the body of this dictation should be directly addressed to the provider for clarification. (2) Bilateral pleural effusion: (3) History of partial mastectomy of right breast: (4) Pneumothorax: Admission and Anticipated Discharge Date Admission Date: July 01, 2020 Subjective Patient seen and examined at bedside. No acute distress, no adverse events overnight. Denies any chest pain, no shortness of breath, no headache, no nausea, no vomiting Good appetite. Patient's chest tube has been clamped since yesterday morning. Review of Systems Review of Systems: All systems reviewed & are unremarkable except as noted in Subjective Physical Exam Physical Exam: Constitutional: Not in acute distress HEENT: EOMI, PERRLA Respiratory system: Decreased air entry bilaterally, no wheeze, no rhonchi, positive crackles bilateral lower lobes CVS: S1-S2 positive, no murmurs or gallops Abdomen: Soft, nontender, nondistended, positive bowel sounds x4 Extremities: +2 pulses bilaterally radialis/ dorsalis pedis, no cyanosis, + 1 pitting edema bilateral lower extremity Neuro: Awake alert oriented x3 Psych: Normal mood and affect G/U: No Lanza Right-sided chest tube in place Skin: no rashes, warm and dry Lymphatic: no cervical or axillary lymphadenopathy Results & Data Results & Data ([facility]) Vital Signs (Past 12 Hours) Vital Signs Temp Pulse Pulse Resp BP Pulse Ox 07/06/20 11:15 37.1 C 78 19 117/70 95 07/06/20 08:00 83 07/06/20 07:39 36.7 C 83 18 107/60 96 07/06/20 07:12 75 07/06/20 03:35 36.8 C 73 16 103/59 L 92 07/06/20 05:28 07/06/20 05:28 PG Care Time/CCT Total # of Minutes Spent Total Time Spent with Patient: Total time spent is greater than 50% in coordination of care (as documented) at patient's floor/unit and/or counseling patient: Coding Level of Care Code 78532 Subseq Hosp Care Lvl 3 Diagnoses Acute respiratory failure with hypoxia J96.01 Bilateral pleural effusion J90 History of partial mastectomy of right breast Z90.11 Pneumothorax J93.9
--- NOTE | 2020-07-06 14:13 | XRay Report ---
XR chest 1V portable CLINICAL HISTORY: Pneumothorax. COMPARISON STUDY: 07/06/2020 FINDINGS: The right pleural pigtail catheter has been removed. There is a stable 5 mm right apical pn eumothorax. Small pleural effusions are suspected. There is no lobar consolidation.[ IMPRESSION: 1. Interval removal of the right-sided pleural catheter 2. Stable 3 mm right apical pneumothorax ACT 112: Negative or not required by law. Electronically signed by: Jasen Buenrostro M.D. 07/06/2020 2:11 PM
[2020-07-06] MEDS: WARFARIN SOD 4 MG TAB PO SCH (15:44)
[2020-07-06] MEDS: ACETAMINOPHEN 325 MG TAB PO PRN (20:45)
[2020-07-06] MEDS: QUEtiapine FUMARATE 25 MG TABLET PO SCH (20:45)
[2020-07-07 06:24] LABS: INR 1.5 (0.9-1.1); Prothrombin Time 14.8 Seconds (9.0-12.0)
[2020-07-07 06:41] LABS: Hematocrit (blood only) 34.5 % (37-47); Hemoglobin 11.3 g/dL (12.0-16.0); Mean Corpuscular Hemoglobin 31.1 pg (25-34); Mean Corpuscular Hgb Conc 32.8 g/dL (32-36); Mean Platelet Volume 12.4 fL (7.4-10.4); Platelet Count 67 K/uL (130-400); RDW Coefficient of Variation 15.1 % (11.5-14.5); RDW Standard Deviation 53.3 fL (36.4-46.3); Red Blood Count 3.63 M/uL (4.2-5.4); White Blood Count 1.43 K/uL (4.8-10.8)
[2020-07-07 06:46] LABS: Albumin Globulin Ratio 1.1 (0.9-2); Albumin Level 2.7 gm/dl (3.4-5.0); BUN Creatinine Ratio 28.7 (10-20); Bilirubin,Total 0.5 mg/dl (0.2-1); Calcium 8.5 mg/dl (8.5-10.1); Creatinine Clr Calc Pharmacy 36.7 ml/min; Est GFR (African American) 63.8 ml/min; Est GFR (Non-African American) 55.1 ml/min; Globulin 2.5 gm/dl (2.5-4.0); Potassium 4.1 mmol/L (3.5-5.1); Total Protein 5.2 gm/dl (6.4-8.2)
--- NOTE | 2020-07-07 07:10 | XRay Report ---
XR chest 1V portable CLINICAL HISTORY: f/u COMPARISON STUDY: Chest radiograph July 06, 2020. FINDINGS: A tiny right apical pneumothorax has decreased in size since prior exam. Patient is rotated . A small right pleural effusion and right basilar opacity have increased. Lung volumes are diminishe d. There is a persistent small left pleural effusion with left basilar opacity. Cardiomediastinal britni houette is stable. IMPRESSION: 1. Interval decrease in size of a tiny right apical pneumothorax. 2. Slight increase in a small right pleural effusion with right basilar opacity. 3. Small left pleural effusion with left basilar opacity, unchanged. ACT 112: Negative or not required by law. Electronically signed by: Gabino Rizvi M.D. 07/07/2020 7:08 AM
[2020-07-07 07:26] VITALS: BP 115/71; TEMP 98.2
[2020-07-07] MEDS: INSULIN ASPART 100 UNITS/ML 3 ML PEN SC SCH (08:16)
[2020-07-07] MEDS: CHOLECALCIFEROL 1,000 UNITS 25 MCG TAB PO SCH (08:18)
[2020-07-07] MEDS: METOPROLOL SUCC 25MG EXT REL TAB PO SCH (08:18)
[2020-07-07] MEDS: MAGNESIUM OXIDE 400 MG TAB PO SCH (08:19)
[2020-07-07] MEDS: SPIRONOLACTONE 25 MG TAB PO SCH (08:19)
[2020-07-07] MEDS: PANTOprazole 40 MG TAB PO SCH (08:19)
[2020-07-07] MEDS: ATORVASTATIN 10 MG TAB PO SCH (08:19)
[2020-07-07] MEDS: TAMOXIFEN CITRATE 10 MG TABLET PO SCH (08:19)
[2020-07-07] MEDS: FUROSEMIDE 20 MG TAB PO SCH (08:19)
--- NOTE | 2020-07-07 09:46 | Discharge Summary ---
Date of Service July 07, 2020 Admission HPI Per Admitting Provider This is a 75yo F with a PMH of alcohol liver cirrhosis with recently diagnosed portal vein thrombosis, pancytopenia, DM II, history of breast cancer in 2017 status post resection, on tamoxifen, CKD III, h/o CVA and other medical problems listed below who presents with progressive shortness of breath of the past 2 weeks. Patient has been experiencing progressively worsening shortness of breath that she attributed to panic attacks surrounding urgent need to get to the bathroom for episodes of diarrhea. Found to drop into the 80s with any type of movement in the ED. Currently saturating at 99% on 2 L nasal cannula. Patient with history of alcohol liver cirrhosis diagnosed in 2009 and recent GI follow-u revealed new portal vein thrombosis on ultrasound. Scheduled for semiurgent EGD scheduled for 07/08 to rule out varices prior to starting anticoagulation. Also with ongoing diarrhea at this point and patient was directed to stop the Enulose and dicyclomine with goal of 1 bowel movement daily. Continues to experience 3 loose bouts of diarrhea daily some black in color. Poor appetite and weight loss of 20 pounds over the past year. Is due for follow-up with heme-onc had to be rescheduled due to patient's recent hip fracture with rehab stay. History of R invasive ductal carcinoma ER strongly positive, MI negative, her 2 Denisse negative on anastrozole since 05/2016. Because of some worsening finding on the DEXA bone density scan it was changed to tamoxifen on 09/27/2018. Is due for heme onc follow up. Denies any fever, chills, lightheadedness, headache, chest pain, palpitations, wheezing, nausea, vomiting, abdominal pain, dysuria or constipation. Admission Exam Per Admitting Provider General Appearance: WD/WN, vitals as above, NAD, sitting up in bed, pleasant, conversing easily, anxious Head: normocephalic, atraumatic Eyes: normal inspection, PERRL, conjunctivae normal, anicteric sclerae ENT: external ear and nose normal, oropharynx normal Neck: normal visual inspection, trachea midline, no thyromegaly Respiratory: normal respiratory effort, diminished lung sounds on R, no wheezes or rhonchi. No accessory muscle use Cardiovascular: tachycardic, regular rhythm, no murmur appreciated, normal peripheral pulses, 1+ BLE edema. Vessels: no JVD Chest: normal inspection of chest Abdomen/GI: normal bowel sounds, soft, nontender, no hepatosplenomegaly Extremities/Musculoskeletal: no cyanosis or clubbing, extremities motor strength 5/5 Neurologic: PERRL, EOMI, accommodation nl, no face palsy, no dysarthria, CN's II-XI intact bilaterally and moves all extremities Psychiatric: A+Ox3, + anxious Skin: no rashes, normal color, warm/dry Principal Diagnosis Acute hypoxic respiratory failure Bilateral pleural effusion Pancytopenia Portal vein thrombosis Discharge Exam Constitutional + well hydrated; no acute distress Eyes PERRL, conjunctivae normal, anicteric sclerae ENMT external ear and nose normal, oropharynx normal Respiratory normal respiratory effort; no respiratory distress Cardiovascular Rate/Rhythm: regular rate and regular rhythm Gastrointestinal (Abdomen) normal bowel sounds, soft, nontender, no hepatosplenomegaly Neurologic PERRL, EOMI, accommodation nl, no face palsy, no dysarthria Psychiatric A+Ox3, euthymic affect Discharge Data Allergies Allergy/AdvReac Type Severity Reaction Status Date / Time Sulfa (Sulfonamide Allergy Unknown RASH Verified 07/01/20 10:29 Antibiotics) Consultations 07/01/20 12:27 ED Decision to Admit Stat 07/01/20 12:35 Consult Gastroenterology Routine Consult Pulmonology Routine Procedures Performed Operation Date: 07/05/20 11:40 Actual Procedures p Esophagogastroduodenoscopy(Not Applicable) - Lewis Hester MD Operation Date: 07/05/20 15:30 <No data on this case meets the specified criteria> Ordered Studies 07/01/20 09:00 CT angio chest PE protocol Stat 07/01/20 09:08 CT abd pelvis IV con only Stat CHEST: Thyroid: Atrophic and heterogeneous. Thoracic aorta: The thoracic aorta is normal in caliber and demonstrates standard 3-vessel arch anatomy. No dissection is seen. Pulmonary vasculature: The pulmonary trunk is normal in caliber. There are no filling defects identified in the main or lobar pulmonary arteries to indicate pulmonary embolus. Evaluation of the segmental and subsegmental branches is severely compromised by motion artifact. Heart: The heart is normal in size and configuration, and without pericardial effusion. Lungs and pleural spaces: Evaluation of the lung parenchyma is significantly compromised by motion artifact. There are is a large right pleural effusion with complete atelectasis of the right lower lung. The right upper lobe remains aerated. There is a small left pleural effusion with basilar atelectasis. The trachea and central airways are clear. Mediastinum: There is leftward shift of the mediastinum. There is no mediastinal lymphadenopathy. Linda: Clear. Axillae: There is no axillary lymphadenopathy. Bony thorax: The skeletal structures are osteopenic. There is a severe compression deformity of T10 and a moderate compression deformity of T12. Degenerative change and kyphoscoliosis is noted in the thoracic spine. No lytic or blastic lesions are identified. Arthritic change is noted in the shoulders. ABDOMEN AND PELVIS: Liver: The contrast-enhanced liver is cirrhotic in morphology and heterogeneous in attenuation. There is nodularity of the hepatic surface contour. There is no intrahepatic or ductal dilatation. There is nonocclusive thrombus identified within the intrahepatic right and left portal veins. This is best seen on images #126 (left) and #141 (right). The main portal vein is patent, and hepatic veins are clear. There is trace nonocclusive thrombus within the superior mesenteric vein as seen on image #157. Nonocclusive thrombus within the splenic vein is seen on image #129. Gallbladder: Unremarkable. Spleen: The spleen is enlarged measuring 16 cm in length. There are perisplenic varices. Pancreas: Moderately atrophic and grossly unremarkable. Adrenal glands: Unremarkable. Kidneys: The contrast enhanced kidneys are atrophic and without hydronephrosis. The kidneys enhance symmetrically. Abdominal vasculature: The abdominal aorta is normal in course and caliber noting mild atherosclerotic calcification. Bowel: There is mild to moderate colonic diverticulosis without CT evidence of acute diverticulitis. No bowel obstruction is identified. The appendix is well- visualized and normal. Mild wall thickening is seen throughout the colon with pericolonic infiltration. Peritoneum: There is a small volume of abdominopelvic ascites. No intraperitoneal free air is identified. Diffuse mesenteric edema is noted. Lymphadenopathy: None. Pelvic viscera: The bladder, uterus, and adnexa are normal as visualized. Skeletal structures: The skeletal structures are osteopenic. No lytic or blastic lesions are seen. There are severe compression deformities of L2 and L3 with retropulsed fragments. This continues to at least moderate central canal stenosis at L2. There is chronic posterior matter deformity and postoperative change noted in the left proximal femur with intertrochanteric and intramedullary nails in place. There are healed bilateral pubic ring fractures. Chronic posterior matter deformity is also seen in the lower sacrum. Soft tissues: There is body wall edema. IMPRESSION: 1. Motion compromised examination. 2. There is no evidence of central pulmonary embolus in the main or lobar pulmonary arteries. Segmental and subsegmental branches cannot be evaluated. 3. There is a large right pleural effusion with complete atelectasis of the right lower lung and leftward shift of the mediastinum. 4. There is a small left pleural effusion with left basilar atelectasis. 5. Cirrhotic liver morphology. 6. Splenomegaly, perisplenic varices, and a small volume of abdominopelvic ascites indicate portal hypertension. 7. There is nonocclusive thrombus within the intrahepatic right and left lobe portal veins, the splenic vein, and the superior mesenteric vein. 8. There is mild diffuse colonic wall thickening and edema with pericolonic infiltration. This could represent portal colopathy versus a nonspecific proctocolitis. Clinical correlation will be essential. 9. Colonic diverticulosis without CT evidence of acute diverticulitis. 10. There are numerous thoracolumbar compression deformity as above. These are age indeterminant but likely chronic. Clinical correlation will be required. 11. Additional findings as above. 07/01/20 13:20 US point of care ultrasound Urgent Hospital Course (1) Acute respiratory failure with hypoxia: (2) Bilateral pleural effusion: (3) Portal vein thrombosis: (4) Diarrhea: (5) Alcoholic cirrhosis of liver: (6) Breast cancer: (7) Pancytopenia: (8) Diabetes mellitus: (9) HTN (hypertension): (10) CKD (chronic kidney disease), stage III: Acute hypoxic respiratory failure with Hypoxia Bilateral pleural effusions, R>L Bibasilar atelectasis Small right pneumothorax -CT Chest: No PE, large right pleural effusion with complete atelectasis of the right lower lung and leftward shift of the mediastinum. There is a small left pleural effusion with left basilar atelectasis. -Fluid analysis showed it was transudative effusion as per light's criteria Fluid pathology negative for malignancy Effusion /hydrothorax likely due to cirrhosis without ascites -S/P pigtail catheter placement on 07/01/20 -Echo reviewed. No left to right shunt/regional wall motion abnormality noted. Normal EF -Developed small pneumothorax post chest tube placement which improved with management -Chest tube removed on 07/06/20 Patient was weaned off oxygen. Ambulatory pulse ox does not indicate oxygen requirement Was started on low dose diuretic - lasix 20 and aldactone 25 BP has been low normal. Diuretics can be uptitrated as needed overtime on outpatient Portal vein thrombosis Alcohol liver cirrhosis Recent follow-up with GI service with ultrasound revealed new portal vein thrombosis -CT ABD:Cirrhotic liver morphology. Splenomegaly, perisplenic varices, and a small volume of abdominopelvic ascites indicate portal hypertension. There is nonocclusive thrombus within the intrahepatic right and left lobe portal veins, the splenic vein, and the superior mesenteric vein. There is mild diffuse colonic wall thickening and edema with pericolonic infiltration. This could represent portal colopathy versus a nonspecific proctocolitis. Clinical correlation will be essential. Colonic diverticulosis without CT evidence of acute diverticulitis. -Had EGD on 07/05/20 showed grade 1, small varices without bleeding or stigmata of recent bleed. Moderate portal hypertensive gastropathy in gastric body Discussed with Solutions Analyst. Ok to anticoagulate. Was started on warfarin 4mg daily. INR is 1.5 today Provided education about warfarin Set up to follow up with Anticoagulation clinic on discharge Check INR in 1-2 days and follow up result with Anticoagulation clinic Patient to follow up with GI outpatient Diarrhea Resolved Stool studies negative Stool for C diff negative H/O Breast cancer Follows with Dr. Mar History of R invasive ductal carcinoma ER strongly positive, MI negative, her 2 Denisse negative Rx with Anastrozole Currently on Tamoxifen Pancytopenia Secondary to Malignancy, Cirrhosis Monitor CBC Diabetes II A1c 6.3 in April 2020 Continue home antidiabetics Hypertension Had some hypotensive episodes while inpatient and Lisinopril was discontinued. Diuretics may be uptitrated outpatient CKD III Monitor renal function Avoid nephrotoxic agents as able Total Time Total Time Spent Total Time Spent (In Minutes): 60 Total Time Includes: Examination of the Patient, Discharge Planning, Medication Reconciliation and Communication With Other Providers Discharge Plan Discharge Items Patient Disposition: Home - Home Health Services Reason For Visit: ACUTE HYPOXIA 2/2 PLEURAL EFFUSIONS, Discharge Diagnosis: Acute hypoxic respiratory failure Bilateral pleural effusion Pancytopenia Portal vein thrombosis Activity: Resume your previous activity Non-emergency contact: Primary Care Provider and Solutions Analyst Call non-emergency contact if: you have any medication questions and your symptoms worsen Follow-up/Referrals: Genevieve Corea CRNP [Nurse Practitioner] - 07/15/20 10:00 am Lucy Bonilla DO [Primary Care Provider] - Diet: Carb Consistent or DM2, Heart Healthy and Low Sodium (2gm) Fluids: 1800ml (7 cups) Ambulatory Orders: Prothrombin Time INR (Routine) Timeframe: 2 Days Location: Determined by Patient Ordered By: Nga Quach Attending Provider Instructions: Ms Manjarrez. You came to the hospital complaining of shortness of breath. You were evaluated and found to have fluid in your chest due to your liver cirrhosis. You were managed with the [employer] (lung doctor) and Solutions Analyst. You required chest tube to drain some of the fluid. You also had endoscopy (EGD) which showed small esophageal varices. You were started on coumadin/warfarin for your recent Portal Vein thrombosis. You will need to maintain INR level of 2-3 as we discussed. Please do the INR ordered by Wednesday and follow up the result with anticoagulation clinic. It is very important that you follow up with the anticoagulation clinic for monitoring and adjustments of your warfarin doses as needed. You were also started on diuretics (water pills - furosemide and spironolactone) to help reduce reaccumulation of fluid. It is very important that you follow up with the Solutions Analyst who will continue to manage and adjust dose as needed. Please ensure you follow dietary and fluid recommendations as discussed. Your lisinopril was discontinued. Please ensure follow up with your Primary Doctor. It was a pleasure taking care of you. Pending Studies at Discharge: No Stand-Alone Forms: My [facility], Smoking Cessation Medications and DC Order Prescriptions: New warfarin [Jantoven] 4 mg Tablet 4 mg PO DAILY@1600 Qty: 30 RF: 0 spironolactone 25 mg Tablet 25 mg PO QAM Qty: 30 RF: 0 furosemide 20 mg Tablet 20 mg PO QAM Qty: 30 RF: 0 Continued atorvastatin [Lipitor] 10 mg tablet 10 mg PO DAILY RF: 0 glipizide [Glucotrol XL] 10 mg tablet extended release 24hr 10 mg PO DAILY RF: 0 alendronate [Fosamax] 70 mg tablet 70 mg PO WK RF: 0 omeprazole 20 mg capsule,delayed release(DR/EC) 20 mg PO DAILY RF: 0 metoprolol succinate [Toprol XL] 25 mg tablet extended release 24 hr 25 mg PO DAILY RF: 0 tamoxifen 20 mg tablet 20 mg PO DAILY RF: 0 magnesium oxide 400 mg magnesium Tablet 400 mg PO DAILY RF: 0 quetiapine 50 mg tablet 50 mg PO HS RF: 0 cholecalciferol (vitamin D3) [Vitamin D3] 50 mcg (2,000 unit) Tablet 50 mcg PO Q2D RF: 0 Changed acetaminophen [Tylenol] 325 mg Tablet 650 mg PO TID PRN (Reason: Pain) Qty: 14 RF: 0 Discontinued lisinopril 10 mg tablet 10 mg PO DAILY RF: 0 Discharge Orders: Discharge Order (Routine); Ordered 07/07/20 Ordered By: Nga Mckeon/Other Patient Handouts: Using Blood Thinners (Anticoagulants), What to Know When TakingWarfarin Admission Data Admit Date/Time: 07/01/20 12:49 Attending Provider: Nga Melgar I. Admit Provider: Kelby Borja Primary Care Provider: Lucy Bonilla Other Providers: Dez Allen ; Isabel Escobar ; Kelby Borja ; Soham Le [facility] ; Jhonatan Darden Other Interventions: Discharge Summary Assessment (RN) Last Done: 07/07/20 09:49
[2020-07-07 09:52] VITALS: PULSE 80; O2SAT 96
== END 2020-07-07 12:25 | disposition home health service (06) | DRG 186 ==
LOC: ED 08:35 → SUATTDRO 12:49 → 1E 12:49 → 2S 07-02 18:06